=== PATIENT | female | born 1995 | race Caucasian/White ===

== ENCOUNTER 2024-08-15 16:38 | Outpatient (CLI) | payer OTHER, SELFPAY ==
[2024-08-15 17:06] VITALS: BP 117/67; PULSE 88; RESP 18; TEMP 36.4
[2024-08-15 17:08] VITALS: O2SAT 98
[2024-08-15 17:09] LABS: Mucous, Urine 0 SEEN /hpf (<or=2+); Red Blood Cells-Urine 0 SEEN /hpf (0-5)
[2024-08-15 17:13] VITALS: BMI 38.9
[2024-08-15 17:30] LABS: Color, Urine Yellow (Yellow); Glucose, Dipstick Normal (Normal); Ketone-Dipstick 15 mg/dl (Negative); Leukocyte Esterase-Dipstick 25 /ul (Negative); Nitrite-Dipstick Positive (Negative); Occult Blood-Urine Negative /ul (Negative); Protein-Dipstick 15 mg/dl (Negative); Urine Bilirubin Dipstick Negative (Negative); Urine Clarity Sl. Cloudy (Clear); Urine Urobilinogen Normal (Normal)
[2024-08-15 17:45] LABS: Hematocrit 35.6 % (37-47); Hemoglobin 11.8 g/dL (12.0-15.0); Mean Corp Hgb Conc 33.1 g/dL (32-36); Mean Corpuscular Hgb 27.9 pg (27.0-32.0); Mean Corpuscular Volume 84.2 fL (81-99); Mean Platelet Vol. 11.6 fl (6.2-12.0); Platelet Count 197 K/mm3 (150-450); RBC Distribution Width CV 13.7 % (11.6-14.6); RBC Distribution Width SD 42.2 fl (35.1-43.9); Red Blood Count 4.23 M/mm3 (4.2-5.4); White Blood Count 11.8 K/mm3 (4.4-11.0)
[2024-08-15 17:56] LABS: AST(SGOT) 18 U/L (<=31); Alanine Aminotransfer ALT/SGPT 17 U/L (<=34); Creatinine, Serum 0.66 mg/dL (0.70-1.20); EST Glomerular Filtration Rate 122 (>60); Estimated Creatinine Clearance 152.24 ml/min (50-250)
[2024-08-15 18:02] LABS: Squamous Epithelial Cells - UA 10-25 SEEN /hpf (5-10); White Blood Cells 5-10 SEEN /hpf (0-5)
[2024-08-15 18:03] LABS: Bacteria 4+ /hpf (None Seen)
[2024-08-15 18:07] LABS: Protein, Urine (Random) 16.8 mg/dL (0.0-12.0); Protein:Creat Ratio 121 mg/g CRE (0-200)
[2024-08-15] MEDS: Nitrofurantoin Macrocrystals 100 MG Capsule PO (18:21)
[2024-08-15 18:31] LABS: Uric Acid 3.7 mg/dL (2.6-6.0)
--- NOTE | 2024-08-19 09:24 | OB.TRI.HP_ITS ---
HPI - General General Date of Admission: 08/15/24 Date of Service: 08/15/24 Chief Complaint: headache in HPI Narrative LAYO PADRON, is a 29 F who presents c/o headace at 29 3/7 weeks Maternal Data Information Final JUDD: 10/28/24 Gestational age: 29 3/7 PFSH PFSH Home Medications ?Medication ?Instructions ?Recorded ?Last Taken ?Type PNV 153-FA 400 mcg-om3 35 mg-dha 1 tab PO DAILY pregna ncy 08/15/24 08/14/24 History 25 mg-epa 5 mg-fish oil chew tablet ( Gummies) pantoprazole 20 mg tablet,delayed 20 mg PO DAILY 08/1508/15/24 History release (Protonix) Allergy/AdvReac Type Severity Reaction Status Date / Time Penicillins Allergy Mild Rash Verified 08/15/24 17:10 NST FHR Rate Baby A Baseline: 130 Variability:: Moderate Accelerations:: 15 x 15 Decelerations:: None NST Reactive:: Yes Uterine Activity:: no regular ctxs Assessment & Plan (1) High risk multigravida in third trimester: PLAN: no evidence of preeclampsia. Return prn or f/u in office as scheduled. (2) 29 weeks gestation of : (3) Headache in : QUALIFIERS: Trimester: third trimester Qualified Code(s): O26.893 - Other specified related conditions, third trimester; R51.9 - Headache, unspecified
== END 2024-08-15 18:25 | disposition home or self-care (01) ==
LOC: WPOUT 16:45 → WP 16:46
PROVIDERS: Referring Provider Advanced Practice Midwife; Visit Provider Advanced Practice Midwife
DX: O99.891 Other specified diseases and conditions complicating pregnancy (principal); R51.9 Headache, unspecified; O09.93 Supervision of high risk pregnancy, unspecified, third trimester; Z3A.29 29 weeks gestation of pregnancy; Z88.0 Allergy status to penicillin
CPT/HCPCS: 36415; 59025; 59050; 81001; 82565; 82570; 84156; 84450; 84460; 84550; 85027; 99221; G0378

== ENCOUNTER 2024-10-27 07:29 | Inpatient (IN) | payer OTHER, SELFPAY ==
[2024-10-27] VITALS (47 sets, daily range): BP systolic 105–152; BP diastolic 53–78; PULSE 71–106; RESP 16–20; TEMP 35.7–37.4; O2SAT 93–99; BMI 42.0
--- OUTSIDE RECORDS SUMMARY | 2024-10-27 07:20 | XMS RPT_ITS | CCD ---
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 Smith on 08-15-2024 Urine RBC 0 SEEN /hpf 0-5 [facility] Mucus LM Ql (Urine sed)Order ed By: Vandana Smith on 08-15-2024 Mucus Ql (Urine sed) 0 SEEN /hpf [facility] Nitrite Test strip Ql (U)Ord ered By: Vandana Smith on 08-15-2024 Nitrite Ql (U) Positive High Negative [facility] Platelet countOrdered By: Antonio Smith on 08-15-2024 Platelets (Bld) [#/Vol] 197 10*3/uL 150-450 [facility] Protein Test strip Ql (U)Ord ered By: Vandana Smith on 08-15-2024 Protein Ql (U) 15 mg/dl High Negative [facility] Protein+Creatinine Ratio,Uri neon 08-15-2024 PROT:CRE RATIO 121 mg/g CRE Normal 0-200 [facility] Comment on above: Performed By: #### L 501.4405, L501.4100, L100.0500, L501.0900, L501.1105, L501.1400 #### [facility] [address] [place], [address] Protein (U) [Mass/Vol] 16.8 mg/dL High 0.0-12.0 [facility] Comment on above: Performed By: #### L 501.4405, L501.4100, L100.0500, L501.0900, L501.1105, L501.1400 #### [facility] [address] [place], [address] Protein/Creatinine (U) [Mass ratio]Ordered By: Vandana Smith on 08-15-2024 Urine Protein/Creatinine Ratio 121 mg/g CRE 0-200 [facility] RBC Auto (Bld) [#/Vol]Ordere d By: Vandana Smith on 08-15-2024 RBC (Bld) [#/Vol] 4.23 10*6/uL 4.2-5.4 [facility] Serum Creatinine AND GFRon 0 08-15-2024 Creatinine [Mass/Vol] 0.66 mg/dL Low 0.70-1.20 [facility] Comment on above: Performed By: #### L 501.4405, L501.4100, L100.0500, L501.0900, L501.1105, L501.1400 #### [facility] [address] [place], [address] ECRCL 152.24 ml/min Normal 50-250 [facility] Comment on above: Performed By: #### L 501.4405, L501.4100, L100.0500, L501.0900, L501.1105, L501.1400 #### [facility] [address] [place], [address] GFR/1.73 sq M.predicted among non-blacks MDRD (S/P/Bld) [Vol rate/Area] 122 mL/min/{1.73_m2} Normal >60 [facility] Comment on above: Result Comment: mL/m in/1.73m2 CKD-EPI Creatinine Equation (2020) Performed By: #### L 501.4405, L501.4100, L100.0500, L501.0900, L501.1105, L501.1400 #### [facility] [address] [place], [address] Serum creatinine measurement (mass/volume)Ordered By: Vandana Smith on 08-15-2024 Creatinine [Mass/Vol] 0.66 mg/dL Low 0.70-1.20 [facility] Serum or plasma alanine peralta otransferase (ALT) measurementOrdered By: Vandana Smith on 08-15-2024 ALT [Catalytic activity/Vol] 17 U/L <35 [facility] Serum or plasma uric acid me asurement (mass/volume)Ordered By: Vandana Smith on 08-15-2024 Urate [Mass/Vol] 3.7 mg/dL 2.6-6.0 [facility] Comment on above: The drugs N-Acetylcy steine and Metamizole may falsely depress this assay. Uric Acidon 08-15-2024 URIC 3.7 mg/dL Normal 2.6-6.0 [facility] Comment on above: Result Comment: The drugs N-Acetylcysteine and Metamizole may falsely depress this assay. Performed By: #### L 501.4405, L501.4100, L100.0500, L501.0900, L501.1105, L501.1400 #### [facility] [address] [place], [address] Urinalysis, Completeon 08-15 BACTERIA 4+ /hpf Normal None Seen [facility] Comment on above: Order Comment: CLEAN CATCH Performed By: #### L 400.0001 #### [facility] [address] [place], [address] EPI,SQUAMOUS 10-25 SEEN Normal 5-10 [facility] Comment on above: Order Comment: CLEAN CATCH Performed By: #### L 400.0001 #### [facility] [address] [place], [address] WBC 5-10 SEEN Normal 0-5 [facility] Comment on above: Order Comment: CLEAN CATCH Performed By: #### L 400.0001 #### [facility] [address] [place], [address] Mucus Ql (Urine sed) 0 SEEN Normal [facility] Comment on above: Order Comment: CLEAN CATCH Performed By: #### L 400.0001 #### [facility] [address] [place], [address] RBC 0 SEEN Normal 0-5 [facility] Comment on above: Order Comment: CLEAN CATCH Performed By: #### L 400.0001 #### [facility] [address] [facility] [address] Urine blood detectionOrdered By: Vandana Smith on 08-15-2024 Urine Occult Blood Negative Negative [facility] Urine clarityOrdered By: Latrice Smith on 08-15-2024 Clarity (U) Sl. Cloudy Clear [facility] Urine color determinationOrd ered By: Vandana Smith on 08-15-2024 Color (U) Yellow Yellow [facility] Urine leukocyte esterase det ection by dipstickOrdered By: Vandana Smith on 08-15-2024 Leukocyte esterase Test strip Ql (U) 25 /ul High Negative [facility] Urine pHOrdered By: Vandana Smith on 08-15-2024 pH (U) 6.0 [pH] 5.0 - 8.0 [facility] Urine protein measurement (m ass/volume)Ordered By: Vandana Smith on 08-15-2024 Protein (U) [Mass/Vol] 16.8 mg/dL High 0.0-12.0 [facility] Urine sediment bacteria coun t by microscopy (number/high power field)Ordered By: Vandana Smith on 08-15-2024 Bacteria LM.HPF (Urine sed) [#/Area] 4 /[HPF] None Seen [facility] Urine specific gravity measu rementOrdered By: Vandana Smith on 08-15-2024 Specific gravity (U) [Rel density] 1.020 1.002-1.030 [facility] Urobilinogen Ql (U)Ordered B y: Vandana Smith on 08-15-2024 Urine Urobilinogen Normal mg/dl Normal [facility] White blood cell (WBC) count Ordered By: Vandana Smith on 08-15-2024 WBC (Bld) [#/Vol] 11.8 10*3/uL High 4.4-11.0 [facility] White blood cell countOrdere d By: Vandana Smith on 08-15-2024 Urine WBC 5-10 SEEN /hpf 0-5 [facility] CBC W Auto Differential pane l (Bld)on 08-10-2024 Basophils (Bld) [#/Vol] 10*3/uL Normal <0.11 [facility] Comment on above: Order Comment: Speci men Type: BLOOD SPECIMEN Ordering Facility: [facility] Address: [address] [place] [address] Performed By: #### 5 7021-8 #### [facility] CLIA [id number] [address] [place] [address] [place] Basophils/100 WBC (Bld) 0.2 % Normal [facility] Comment on above: Order Comment: Speci men Type: BLOOD SPECIMEN Ordering Facility: [facility] Address: [address] [place] [address] Performed By: #### 5 7021-8 #### [facility] CLIA [id number] [address] [place] [address] [place] Differential cell count method Nom (Bld) Auto Normal [facility] Comment on above: Order Comment: Speci men Type: BLOOD SPECIMEN Ordering Facility: [facility] Address: [address] [place] [address] Performed By: #### 5 7021-8 #### [facility] CLIA [id number] [address] [place] [address] [place] Eosinophils (Bld) [#/Vol] 0.13 10*3/uL Normal <0.46 [facility] Comment on above: Order Comment: Speci men Type: BLOOD SPECIMEN Ordering Facility: [facility] Address: [address] [place] [address] Performed By: #### 5 7021-8 #### [facility] CLIA [id number] [address] [place] [address] [place] Eosinophils/100 WBC (Bld) 1.3 % Normal [facility] Comment on above: Order Comment: Speci men Type: BLOOD SPECIMEN Ordering Facility: [facility] Address: [address] [place] [address] Performed By: #### 5 7021-8 #### [facility] CLIA [id number] [address] [place] [address] [place] Erythrocyte distribution width (RBC) [Ratio] 14.1 % Normal 11.5-15.0 [facility] Comment on above: Order Comment: Speci men Type: BLOOD SPECIMEN Ordering Facility: [facility] Address: [address] [place] [address] Performed By: #### 5 7021-8 #### [facility] CLIA [id number] [address] [place] [address] [place] Hematocrit (Bld) [Volume fraction] 36.3 % Normal 36.0-46.0 [facility] Comment on above: Order Comment: Speci men Type: BLOOD SPECIMEN Ordering Facility: [facility] Address: [address] [place] [address] Performed By: #### 5 7021-8 #### [facility] CLIA [id number] [address] [place] [address] [place] Hemoglobin (Bld) [Mass/Vol] 11.8 g/dL Normal 11.5-15.5 [facility] Comment on above: Order Comment: Speci men Type: BLOOD SPECIMEN Ordering Facility: [facility] Address: [address] [place] [address] Performed By: #### 5 7021-8 #### [facility] CLIA [id number] [address] [place] [address] [place] Immature granulocytes (Bld) [#/Vol] 0.05 10*3/uL Normal <0.10 [facility] Comment on above: Order Comment: Speci men Type: BLOOD SPECIMEN Ordering Facility: [facility] Address: [address] [place] [address] Performed By: #### 5 7021-8 #### [facility] CLIA [id number] [address] [place] [address] [place] Immature granulocytes/100 WBC (Bld) 0.5 % Normal [facility] Comment on above: Order Comment: Speci men Type: BLOOD SPECIMEN Ordering Facility: [facility] Address: [address] [place] [address] Performed By: #### 5 7021-8 #### [facility] CLIA [id number] [address] [place] [address] [place] Lymphocytes (Bld) [#/Vol] 1.48 10*3/uL Normal 1.00-4.00 [facility] Comment on above: Order Comment: Speci men Type: BLOOD SPECIMEN Ordering Facility: [facility] Address: [address] [place] [address] Performed By: #### 5 7021-8 #### [facility] CLIA [id number] [address] [place] [address] [place] Lymphocytes/100 WBC (Bld) 14.5 % Normal [facility] Comment on above: Order Comment: Speci men Type: BLOOD SPECIMEN Ordering Facility: [facility] Address: [address] [place] [address] Performed By: #### 5 7021-8 #### [facility] CLIA [id number] [address] [place] [address] [place] MCH (RBC) [Entitic mass] 27.7 pg Normal 26.0-34.0 [facility] Comment on above: Order Comment: Speci men Type: BLOOD SPECIMEN Ordering Facility: [facility] Address: [address] [place] [address] Performed By: #### 5 7021-8 #### [facility] CLIA [id number] [address] [place] [address] [place] MCHC (RBC) [Mass/Vol] 32.5 g/dL Normal 30.5-36.0 [facility] Comment on above: Order Comment: Speci men Type: BLOOD SPECIMEN Ordering Facility: [facility] Address: [address] [place] [address] Performed By: #### 5 7021-8 #### [facility] CLIA [id number] [address] [place] [address] [place] MCV (RBC) [Entitic vol] 85.2 fL Normal 80.0-100.0 [facility] Comment on above: Order Comment: Speci men Type: BLOOD SPECIMEN Ordering Facility: [facility] Address: [address] [place] [address] Performed By: #### 5 7021-8 #### [facility] CLIA [id number] [address] [place] [address] [place] Monocytes (Bld) [#/Vol] 0.51 10*3/uL Normal <0.87 [facility] Comment on above: Order Comment: Speci men Type: BLOOD SPECIMEN Ordering Facility: [facility] Address: [address] [place] [address] Performed By: #### 5 7021-8 #### [facility] CLIA [id number] [address] [place] [address] [place] Monocytes/100 WBC (Bld) 5.0 % Normal [facility] Comment on above: Order Comment: Speci men Type: BLOOD SPECIMEN Ordering Facility: [facility] Address: [address] [place] [address] Performed By: #### 5 7021-8 #### [facility] CLIA [id number] [address] [place] [address] [place] Neutrophils (Bld) [#/Vol] 8.00 10*3/uL High 1.45-7.50 [facility] Comment on above: Order Comment: Speci men Type: BLOOD SPECIMEN Ordering Facility: [facility] Address: [address] [place] [address] Performed By: #### 5 7021-8 #### [facility] CLIA [id number] [address] [place] [address] [place] Neutrophils/100 WBC (Bld) 78.5 % Normal [facility] Comment on above: Order Comment: Speci men Type: BLOOD SPECIMEN Ordering Facility: [facility] Address: [address] [place] [address] Performed By: #### 5 7021-8 #### [facility] CLIA [id number] [address] [place] [address] [place] Nucleated RBC (Bld) [#/Vol] 10*3/uL Normal <0.01 [facility] Comment on above: Order Comment: Speci men Type: BLOOD SPECIMEN Ordering Facility: [facility] Address: [address] [place] [address] Performed By: #### 5 7021-8 #### [facility] [id number] [address] [place] [address] [place] Nucleated RBC/100 WBC (Bld) [Ratio] 0.0 /100 WBC Normal [facility] Comment on above: Order Comment: Speci men Type: BLOOD SPECIMEN Ordering Facility: [facility] Address: [address] [place] [address] Performed By: #### 5 7021-8 #### [facility] [id number] [address] [place] [address] [place] Platelet mean volume (Bld) [Entitic vol] 11.2 fL Normal 9.0-12.7 [facility] Comment on above: Order Comment: Speci men Type: BLOOD SPECIMEN Ordering Facility: [facility] Address: [address] [place] [address] Performed By: #### 5 7021-8 #### [facility] [id number] [address] [place] [address] [place] Platelets (Bld) [#/Vol] 188 10*3/uL Normal 150-400 [facility] Comment on above: Order Comment: Speci men Type: BLOOD SPECIMEN Ordering Facility: [facility] Address: [address] [place] [address] Performed By: #### 5 7021-8 #### [facility] CLIA [id number] [address] [place] [address] [place] RBC (Bld) [#/Vol] 4.26 10*6/uL Normal 3.90-5.20 [facility] Comment on above: Order Comment: Speci men Type: BLOOD SPECIMEN Ordering Facility: [facility] Address: [address] [place] [address] Performed By: #### 5 7021-8 #### [facility] [id number] [address] [place] [address] [place] WBC (Bld) [#/Vol] 10.19 10*3/uL Normal 3.70-11.00 [facility] Comment on above: Order Comment: Speci men Type: BLOOD SPECIMEN Ordering Facility: [facility] Address: [address] [place] [address] Performed By: #### 5 7021-8 #### [facility] [id number] [address] [place] [address] [place] GESTATIONAL GLUCOSE SCREEN, 1-HOUR, 50 GRAM, NON-FASTINGon 08-10-2024 Glucose [Mass/Vol] 116 mg/dL Normal 74-134 [facility] Comment on above: Order Comment: Speci men Type: BLOOD SPECIMEN Ordering Facility: [facility] Address: [address] [place] [address] Result Comment: [facility] [employer] of Obstetricians and Gynecologists (Juan Manuel/Yaya) guidelines state a gestational diabetes mellitus positive screen is made, in women not previously diagnosed with overt diabetes, when the 1 hr plasma glucose level is equal to or above 140 mg/dL. The [facility] [employer] [facility] [place] recommends a 135 mg/dL cutoff. Performed By: #### G LTGST #### [facility] [id number] [address] [place] [address] [place] Reagin and Treponema pallidu m IgG and IgM [Interp]on 08-10-2024 T. pallidum IgG+IgM IA Ql (S) Non-Reactive Normal Nonreactive [facility] Comment on above: Order Comment: Sakshi ann Type: BLOOD SPECIMEN Ordering Facility: [facility] Address: [address] [place] [address] Performed By: #### 5 7021-8 #### [facility] CLIA [id number] [address] [place] [address] [place] Reagin+T pallidum IgG+IgM Se rPl-Impon 08-10-2024 Reagin and Treponema pallidum IgG and IgM [Interp] Cannot exclude recent Treponemal infection if specimen collected within 7-10 days after appearance of suspect lesions or 2-3 weeks after an exposure. Clinical correlation is required. Normal [facility] Comment on above: Order Comment: Sakshi ann Type: BLOOD SPECIMEN Ordering Facility: [facility] Address: [address] [place] [address] Performed By: #### 5 7021-8 #### [facility] [id number] [address] [place] [address] [place] Examination level ultrasound on 07-15-2024 [facility] Radiology Study observation (narrative) [facility] Albaro 06-15-2024 REYNALDO Telephone (MANN) -------- REENA JAMA ([id number]) 1995 F Date Time Provider Department 06/15/24 REENA TELLES During your visit today, we recorded the following information about you: Jenna Castellanos RN 06/15/2024 11:17 AM Signed Reviewed. Please add to record. Needs follow up in anatomy in 2-4 weeks. Reena Telles, CHRISTOPHER.Jenna Gaxiola RN 06/15/2024 11:17 AM Signed Left message to call office. Please file pended order. BASSAM Smith Trisha, RN 06/15/2024 11:26 AM Signed Patient notified and scheduled. Anabell Dunham RN Allergies As of Date: 06/15/2024 Noted Allergy Reaction PENICILLIN 03/15/2024 4 - Hives Date Reviewed: 06/14/2024 Reviewed by: Rachel Mcintosh MD - Fully Assessed Reason for Visit: Follow Up [171] Primary Visit Diagnosis:Encounter for supervision of high risk in second trimester, antepartum [O09.92] Order(s):OBSTETRIC ULTRASOUND [facility] [[id number]] Order #: [id number]: 1 FUTURE Prescriptions as of 06/15/2024 - pantoprazole DR (PROTONIX) 40 mg tablet Take 1 tablet by mouth once daily. - Magnesium Oxide 420 mg tab Take 1 tablet by mouth once daily. - aspirin, enteric coated (ECOTRIN LOW STRENGTH) 81 mg EC tablet Take 1 tablet by mouth once daily. - vit/iron fum/folic ac ( TABLET ORAL) Take 1 tablet by mouth once daily. Problem List As Of Date 06/15/2024 Noted Resolved Penicillin allergy [Z88.0] 03/21/2024 Obesity affecting in first trimester *03/21/2024 Constipation during in first trimeste*03/21/2024 04/19/2024 Heartburn during in first trimester [*03/21/2024 Nausea and vomiting during [O21.9] 03/21/2024 Encounter Status:Closed by ANABELL DUNHAM on 06/15/24 Normal [facility] Examination level ultrasound on 06-14-2024 Indication Detailed anatomic survey Maternal obesity, BMI >30 Impression REMOTE READ The patient is referred for a detailed anatomic survey. - Single, live, intrauterine . - biometry is consistent with the established gestational age. - No malformations were visualized on a detailed anatomic survey, although some anatomical structures were suboptimally seen as detailed below. - The amniotic fluid volume is normal amount. - The placenta is anterior, fundal. - The Transabdominal cervical length measures 34.3 mm with no evidence of funneling or other dynamic changes. - Not all structural malformations can be detected by ultrasound examination. Recommendations Return in 2-4 weeks to complete anatomic survey Maternal Assessment Height 168 cm Height (ft) 5 ft Height (in) 6 in Physical Exam Initial weight (lb) 212 lb Initial BMI 34.22 kg/m Maternal assessment other: 2 Para 1 Method Transabdominal ultrasound examination. View: Suboptimal view: limited by position Wade . Number of fetuses: 1 Dating LMP on: 01/22/2024 GA by LMP 20 w + 4 d JUDD by LMP: 10/28/2024 GA by prior assessment 20 w + 4 d JUDD by prior assessment: 10/28/2024 Ultrasound examination on: 06/14/2024 GA by U/S based upon: AC, BPD, Femur, HC GA by U/S 20 w + 4 d JUDD by U/S: 10/28/2024 Assigned: based on the LMP, selected on 03/21/2024 Assigned GA 20 w + 4 d Assigned JUDD: 10/28/2024 General Evaluation Cardiac activity present. FHR 159 bpm. movements: present. Presentation: breech Placenta: Placental site: anterior, fundal Umbilical cord: Cord vessels: 3 vessel cord Amniotic fluid: Amount of AF: normal amount. MVP 4.7 cm Growth Overview Exam date GA BPD (mm) HC (mm) AC (mm) FL (mm) HL (mm) EFW (g) 06/14/2024 20w 4d 47.5 40% 182.2 51% 161.9 67% 31.5 34% 31.9 53% 364 45% Biometry Standard BPD 47.5 mm 20w 3d 40% Hadlock OFD 65.7 mm 20w 5d 82% Nicolaides HC 182.2 mm 20w 4d 51% Jovany Cerebellum tr 19.9 mm 19w 1d 20% Hill Nuchal fold 4.3 mm AC 161.9 mm 21w 2d 67% Hadlock Femur 31.5 mm 20w 0d 34% Jovany Humerus 31.9 mm 20w 5d 53% Jovany EFW 364 g 20w 3d 45% Hadlock EFW (lb) 0 lb EFW (oz) 13 oz EFW by: Hadlock (HC-AC-FL) Extended Hoist Operator 5.4 mm CM 4.0 mm 15% Nicolaides Extremities / Bony Struc FL / HC 0.17 2% Hadlock Other Structures FHR 159 bpm Anatomy Cranium: normal Lateral ventricles: normal Choroid plexus: normal Midline falx: normal Cavum septi pellucidi: normal Cerebellum: normal Cisterna magna: normal Head / Neck Vermis: normal Neck: normal Nuchal fold: normal Lips: normal Profile: normal Nose: normal Face Maxilla: normal Mandible: normal Orbits: normal Lens: normal 4-chamber view: normal RVOT view: normal LVOT view: normal 3-vessel view: normal [id number] view: normal Heart / Thorax Situs: situs solitus (normal) Aortic arch view: normal SVC: normal IVC: normal Cardiac axis: normal Rt lung: normal Lt lung: normal Diaphragm: normal Cord insertion: normal Stomach: normal Kidneys: normal Bladder: normal Genitals: normal Abdomen Abdom. wall: normal Cervical spine: normal Thoracic spine: suboptimally visualized Lumbar spine: suboptimally visualized Sacral spine: suboptimally visualized Arms: normal Legs: normal Rt upper arm: normal Rt forearm: normal Rt hand: normal Rt fingers: normal Lt upper arm: normal Lt forearm: normal Lt hand: normal Lt fingers: normal Rt upper leg: normal Rt lower leg: normal Rt foot: normal Lt upper leg: normal Lt lower leg: normal Lt foot: normal sex: male Wants to know sex: yes Maternal Structures Uterus / Cervix Uterus: Visualized Cervix: Visualized Approach: Transabdominal Cervical length 34.3 mm Other: Patient declined transvaginal ultrasound for cervical length. Ovaries / Tubes / Adnexa Rt ovary: Visualized Lt ovary: Visualized Performed By: Jenna Ferrell RDMS, RVT Read By: Silvia Mcgee M.D. MATERNAL MEDICINE [facility] Radiology Study observation (narrative) [facility] CBC W Auto Differential pane l (Bld)on 04-19-2024 Basophils (Bld) [#/Vol] 0.04 10*3/uL Normal <0.11 [facility] Comment on above: Order Comment: Speci men Type: BLOOD SPECIMEN Ordering Facility: [facility] Address: [address] [place] [address] Performed By: #### 5 7021-8 #### [facility] CLIA [id number] [address] [place] [address] [place] Basophils/100 WBC (Bld) 0.5 % Normal [facility] Comment on above: Order Comment: Speci men Type: BLOOD SPECIMEN Ordering Facility: [facility] Address: [address] [place] [address] Performed By: #### 5 7021-8 #### [facility] CLIA [id number] [address] [place] [address] [place] Differential cell count method Nom (Bld) Auto Normal [facility] Comment on above: Order Comment: Speci men Type: BLOOD SPECIMEN Ordering Facility: [facility] Address: [address] [place] [address] Performed By: #### 5 7021-8 #### [facility] CLIA [id number] [address] [place] [address] [place] Eosinophils (Bld) [#/Vol] 0.15 10*3/uL Normal <0.46 [facility] Comment on above: Order Comment: Speci men Type: BLOOD SPECIMEN Ordering Facility: [facility] Address: [address] [place] [address] Performed By: #### 5 7021-8 #### [facility] CLIA [id number] [address] [place] [address] [place] Eosinophils/100 WBC (Bld) 1.9 % Normal [facility] Comment on above: Order Comment: Speci men Type: BLOOD SPECIMEN Ordering Facility: [facility] Address: [address] [place] [address] Performed By: #### 5 7021-8 #### [facility] CLIA [id number] [address] [place] [address] [place] Erythrocyte distribution width (RBC) [Ratio] 13.2 % Normal 11.5-15.0 [facility] Comment on above: Order Comment: Speci men Type: BLOOD SPECIMEN Ordering Facility: [facility] Address: [address] [place] [address] Performed By: #### 5 7021-8 #### [facility] CLIA [id number] [address] [place] [address] [place] Hematocrit (Bld) [Volume fraction] 39.9 % Normal 36.0-46.0 [facility] Comment on above: Order Comment: Speci men Type: BLOOD SPECIMEN Ordering Facility: [facility] Address: [address] [place] [address] Performed By: #### 5 7021-8 #### [facility] CLIA [id number] [address] [place] [address] [place] Hemoglobin (Bld) [Mass/Vol] 12.9 g/dL Normal 11.5-15.5 [facility] Comment on above: Order Comment: Speci men Type: BLOOD SPECIMEN Ordering Facility: [facility] Address: [address] [place] [address] Performed By: #### 5 7021-8 #### [facility] CLIA [id number] [address] [place] [address] [place] Immature granulocytes (Bld) [#/Vol] 0.03 10*3/uL Normal <0.10 [facility] Comment on above: Order Comment: Speci men Type: BLOOD SPECIMEN Ordering Facility: [facility] Address: [address] [place] [address] Performed By: #### 5 7021-8 #### [facility] CLIA [id number] [address] [place] [address] [place] Immature granulocytes/100 WBC (Bld) 0.4 % Normal [facility] Comment on above: Order Comment: Speci men Type: BLOOD SPECIMEN Ordering Facility: [facility] Address: [address] [place] [address] Performed By: #### 5 7021-8 #### [facility] CLIA [id number] [address] [place] [address] [place] Lymphocytes (Bld) [#/Vol] 2.08 10*3/uL Normal 1.00-4.00 [facility] Comment on above: Order Comment: Speci men Type: BLOOD SPECIMEN Ordering Facility: [facility] Address: [address] [place] [address] Performed By: #### 5 7021-8 #### [facility] CLIA [id number] [address] [place] [address] [place] Lymphocytes/100 WBC (Bld) 26.9 % Normal [facility] Comment on above: Order Comment: Speci men Type: BLOOD SPECIMEN Ordering Facility: [facility] Address: [address] [place] [address] Performed By: #### 5 7021-8 #### [facility] CLIA [id number] [address] [place] [address] [place] MCH (RBC) [Entitic mass] 27.6 pg Normal 26.0-34.0 [facility] Comment on above: Order Comment: Speci men Type: BLOOD SPECIMEN Ordering Facility: [facility] Address: [address] [place] [address] Performed By: #### 5 7021-8 #### [facility] CLIA [id number] [address] [place] [address] [place] MCHC (RBC) [Mass/Vol] 32.3 g/dL Normal 30.5-36.0 [facility] Comment on above: Order Comment: Speci men Type: BLOOD SPECIMEN Ordering Facility: [facility] Address: [address] [place] [address] Performed By: #### 5 7021-8 #### [facility] CLIA [id number] [address] [place] [address] [place] MCV (RBC) [Entitic vol] 85.4 fL Normal 80.0-100.0 [facility] Comment on above: Order Comment: Speci men Type: BLOOD SPECIMEN Ordering Facility: [facility] Address: [address] [place] [address] Performed By: #### 5 7021-8 #### [facility] CLIA [id number] [address] [place] [address] [place] Monocytes (Bld) [#/Vol] 0.48 10*3/uL Normal <0.87 [facility] Comment on above: Order Comment: Speci men Type: BLOOD SPECIMEN Ordering Facility: [facility] Address: [address] [place] [address] Performed By: #### 5 7021-8 #### [facility] CLIA [id number] [address] [place] [address] [place] Monocytes/100 WBC (Bld) 6.2 % Normal [facility] Comment on above: Order Comment: Speci men Type: BLOOD SPECIMEN Ordering Facility: [facility] Address: [address] [place] [address] Performed By: #### 5 7021-8 #### [facility] CLIA [id number] [address] [place] [address] [place] Neutrophils (Bld) [#/Vol] 4.94 10*3/uL Normal 1.45-7.50 [facility] Comment on above: Order Comment: Speci men Type: BLOOD SPECIMEN Ordering Facility: [facility] Address: [address] [place] [address] Performed By: #### 5 7021-8 #### [facility] CLIA [id number] [address] [place] [address] [place] Neutrophils/100 WBC (Bld) 64.1 % Normal [facility] Comment on above: Order Comment: Speci men Type: BLOOD SPECIMEN Ordering Facility: [facility] Address: [address] [place] [address] Performed By: #### 5 7021-8 #### [facility] CLIA [id number] [address] [place] [address] [place] Nucleated RBC (Bld) [#/Vol] 10*3/uL Normal <0.01 [facility] Comment on above: Order Comment: Speci men Type: BLOOD SPECIMEN Ordering Facility: [facility] Address: [facility] [place] [address] Performed By: #### 5 7021-8 #### [facility] CLIA [id number] [address] [place] [address] [place] Nucleated RBC/100 WBC (Bld) [Ratio] 0.0 /100 WBC Normal [facility] Comment on above: Order Comment: Speci men Type: BLOOD SPECIMEN Ordering Facility: [facility] Address: [address] [place] [address] Performed By: #### 5 7021-8 #### [facility] CLIA [id number] [address] [place] [address] [place] Platelet mean volume (Bld) [Entitic vol] 10.5 fL Normal 9.0-12.7 [facility] Comment on above: Order Comment: Speci men Type: BLOOD SPECIMEN Ordering Facility: [facility] Address: [address] [place] [address] Performed By: #### 5 7021-8 #### [facility] CLIA [id number] [address] [place] [address] [place] Platelets (Bld) [#/Vol] 195 10*3/uL Normal 150-400 [facility] Comment on above: Order Comment: Speci men Type: BLOOD SPECIMEN Ordering Facility: [facility] Address: [facility] [place] [address] Performed By: #### 5 7021-8 #### [facility] CLIA [id number] [address] [place] [address] [place] RBC (Bld) [#/Vol] 4.67 10*6/uL Normal 3.90-5.20 [facility] Comment on above: Order Comment: Speci men Type: BLOOD SPECIMEN Ordering Facility: [facility] Address: [address] [place] [address] Performed By: #### 5 7021-8 #### [facility] CLIA [id number] [address] [place] [address] [place] WBC (Bld) [#/Vol] 7.72 10*3/uL Normal 3.70-11.00 [facility] Comment on above: Order Comment: Speci men Type: BLOOD SPECIMEN Ordering Facility: [facility] Address: [address] [place] [address] Performed By: #### 5 7021-8 #### [facility] [id number] [address] [place] [address] [place] HBV surface Ag Ser Qlon 04-03 HBV surface Ag Ql (S) Negative Normal Negative [facility] Comment on above: Order Comment: Speci men Type: BLOOD SPECIMEN Ordering Facility: [facility] Address: [address] [place] [address] Performed By: #### G LTGST #### [facility] [id number] [address] [place] [address] [place] HCV Ab Ser Qlon 04-19-2024 HCV Ab Ql (S) Negative Normal Negative [facility] Comment on above: Order Comment: Speci men Type: BLOOD SPECIMEN Ordering Facility: [facility] Address: [address] [place] [address] Result Comment: The result suggests no evidence of active infection with Hepatitis C virus. Should recent infection be suspected, repeat testing may be considered 4-6 weeks after this draw. Performed By: #### 5 7021-8 #### [facility] CLIA [id number] [address] [place] [address] [place] HIV 1+2 Ab IA Qlon 4 HIV 1 and 2 Ab IA.rapid Nom (S/P/Bld) Normal [facility] Comment on above: Order Comment: Speci men Type: BLOOD SPECIMEN Ordering Facility: [facility] Address: [address] [place] [address] Result Comment: Test not indicated. Performed By: #### G LTGST #### [facility] CLIA [id number] [address] [place] [address] [place] HIV 1+2 Ab+HIV1 p24 Ag IA Ql Non-Reactive Normal Nonreactive [facility] Comment on above: Order Comment: Speci men Type: BLOOD SPECIMEN Ordering Facility: [facility] Address: [address] [place] [address] Performed By: #### G LTGST #### [facility] CLIA [id number] [address] [place] [address] [place] HIV immunoassay testing algorithm interpretation (S/P/Bld) [Interp] Normal [facility] Comment on above: Order Comment: Speci men Type: BLOOD SPECIMEN Ordering Facility: [facility] Address: [address] [place] [address] Result Comment: No e vidence of HIV-1 or HIV-2 infection. Should recent infection be suspected, repeat testing may be considered 2-3 weeks after this draw. [place] Rev. Code 3701.243(E): This information has been disclosed to you from confidential records protected from disclosure by state law. ???You shall make no further disclosure of this information without the specific, written, and informed release of the individual to whom it pertains or as otherwise permitted by state law. A general authorization for the release of medical or other information is not sufficient for the purpose of the release of HIV test results or diagnoses. Performed By: #### G LTGST #### [facility] CLIA [id number] [address] [place] [address] [place] HbA1c (Bld)on 04-19-2024 Average glucose Estimated from glycated hemoglobin (Bld) [Mass/Vol] 97 mg/dL Normal [facility] Comment on above: Order Comment: Sakshi ann Type: BLOOD SPECIMEN Ordering Facility: [facility] Address: [address] [place] [address] Result Comment: eAG: (Estimated average glucose) is a calculated value from HgbA1c and is training representative of the average blood glucose level in the last 2-3 month period. Performed By: #### G LTGST #### [facility] CLIA [id number] [address] [place] [address] [place] HbA1c (Bld) [Mass fraction] 5.0 % Normal 4.3-5.6 [facility] Comment on above: Order Comment: Sakshi ann Type: BLOOD SPECIMEN Ordering Facility: [facility] Address: [address] [place] [address] Result Comment: Amer [place] Diabetes Association guidelines indicate that patients with HgbA1c in the range 5.7-6.4% are at increased risk for development of diabetes, and intervention by lifestyle modification may be beneficial. HgbA1c greater or equal to 6.5% is considered diagnostic of diabetes. Performed By: #### G LTGST #### [facility] CLIA [id number] [address] [place] [address] [place] RUBELLA IGG ANTIBODYon 04-19 RUBELLA IGG AB, QUAL Positive Normal Positive [facility] Comment on above: Order Comment: Sakshi ann Type: BLOOD SPECIMEN Ordering Facility: [facility] Address: [address] [place] [address] Result Comment: The result suggests recent or past exposure to Rubella virus or history of Rubella vaccination. Positive result may also be seen due to presence of passively-transferred antibodies. Please correlate with patient's history. Performed By: #### G LTGST #### [facility] CLIA [id number] [address] [place] [address] [place] Reagin and Treponema pallidu m IgG and IgM [Interp]on 04-19-2024 T. pallidum IgG+IgM IA Ql (S) Non-Reactive Normal Nonreactive [facility] Comment on above: Order Comment: Speci men Type: BLOOD SPECIMEN Ordering Facility: [facility] Address: [address] [place] [address] Performed By: #### G LTGST #### [facility] CLIA [id number] [address] [place] [address] [place] Reagin+T pallidum IgG+IgM Se rPl-Impon 04-19-2024 Reagin and Treponema pallidum IgG and IgM [Interp] Cannot exclude recent Treponemal infection if specimen collected within 7-10 days after appearance of suspect lesions or 2-3 weeks after an exposure. Clinical correlation is required. Normal [facility] Comment on above: Order Comment: Speci men Type: BLOOD SPECIMEN Ordering Facility: [facility] Address: [address] [place] [address] Performed By: #### G LTGST #### [facility] CLIA [id number] [address] [place] [address] [place] TYPE + SCREEN PRENATALon ABO O Normal [facility] Comment on above: Order Comment: Speci men Type: BLOOD SPECIMEN Ordering Facility: [facility] Address: [address] [place] [address] Performed By: #### T SPN #### [facility] CLIA [id number] [address] [place] [address] [place] Rh Nom (Bld) Positive Normal [facility] Comment on above: Order Comment: Speci men Type: BLOOD SPECIMEN Ordering Facility: [facility] Address: [address] [place] [address] Performed By: #### T SPN #### [facility] CLIA [id number] [address] [place] [address] [place] TYPE AND SCREEN EXPIRATION 04/22/2024 23:59 Normal [facility] Comment on above: Order Comment: Speci men Type: BLOOD SPECIMEN Ordering Facility: [facility] Address: [address] [place] [address] Performed By: #### T SPN #### [facility] CLIA [id number] [address] [place] [address] [place] Bacteria Ur Culton 4 Bacteria identified Cx Nom (U) ORGANISM ID: 1 >=100,000 CFU/ml Mixed microbiota No further workup. Mixed microbiota can be due to???urine???contaminati on with skin bacteria at time of collection or presence of a long-term urinary catheter. If a new culture is needed, please consider re-education of the patient on proper midstream collection technique or straight catheterization for???urine???collection . Normal [facility] Comment on above: Performed By: #### G LTGST #### [facility] CLIA [id number] [address] [place] [address] [place] C. trachomatis+N. gonorrhoea e DNA SUZETTE+probe Ql (Unsp spec)on 03-21-2024 C. trachomatis rRNA SUZETTE+probe Ql (Unsp spec) Negative Normal Negative for Chlamydia trachomatis by amplificaton [facility] Comment on above: Order Comment: Speci men Type: SWAB Ordering Facility: [facility] Address: [address] [place] [address] Performed By: #### 3 6902-5 #### [facility] CLIA [id number] [address] [place] [address] [place] N. gonorrhoeae rRNA SUZETTE+probe Ql (Unsp spec) Negative Normal Negative for Neisseria gonorrhoeae by amplification [facility] Comment on above: Order Comment: Speci men Type: SWAB Ordering Facility: [facility] Address: [address] [place] [address] Performed By: #### 3 6902-5 #### [facility] CLIA [id number] [address] [place] [address] [place] PAP TESTon 03-21-2024 ADEQUACY Satisfactory for interpretation. Normal [facility] Comment on above: Order Comment: Speci men Type: FLUID SPECIMEN Ordering Facility: [facility] Address: [address] [place] [address] Performed By: #### L [id number] #### [facility] CLIA [id number] [address] [place] [address] [place] [facility] CLIA [id number] [address] [place] [address] [place] CASE REPORT Normal [facility] Comment on above: Order Comment: Speci men Type: FLUID SPECIMEN Ordering Facility: [facility] Address: [address] [place] [address] Result Comment: Gyne cologic Cytology Report Case: [id number] Authorizing Provider: Reena Telles APRN.DEMOLITION SPECIALIST Collected: 03/21/2024 11:37 AM Ordering Location: OB/Gynecology Received: 03/21/2024 01:09 PM First Screen: Darrion Gregory, CT, ASCP Specimen: Pap Test, ThinPrep, Cervix Performed By: #### L [id number] #### [facility] CLIA [id number] [address] [place] [address] [place] [facility] CLIA [id number] [address] [place] [address] [place] CLINICAL HISTORY, CYTOLOGY, CHARTERED WEALTH MANAGER (Indicate Weeks) Normal [facility] Comment on above: Order Comment: Speci men Type: FLUID SPECIMEN Ordering Facility: [facility] Address: [address] [place] [address] Performed By: #### L [id number] #### [facility] CLIA [id number] [address] [place] [address] [place] [facility] CLIA [id number] [address] [place] [address] [place] FINAL PERFORMING LAB Normal [facility] Comment on above: Order Comment: Speci men Type: FLUID SPECIMEN Ordering Facility: [facility] Address: [address] [place], [place] [id number] Result Comment: Tech nical component, silo worker screening performed at [facility], [address] [place] [address] CLIA# [id number] Diagnostic interpretation performed at [facility], [address] [place] [address] CLIA# [id number] Touch Up Edger: Tucker Kat M.D. Performed By: #### L [id number] #### [facility] CLIA [id number] [address] [place] [address] [place] [facility] CLIA [id number] [address] [place] [address] [place] INTERPRETATION, CYTOLOGY, CHARTERED WEALTH MANAGER Normal [facility] Comment on above: Order Comment: Speci men Type: FLUID SPECIMEN Ordering Facility: [facility] Address: [address] [place] [address] Result Comment: Nega tive for intraepithelial lesion or malignancy. Performed By: #### L [id number] #### [facility] CLIA [id number] [address] [place] [address] [place] [facility] CLIA [id number] [address] [place] [address] [place] LMP 01/22/2024 Normal [facility] Comment on above: Order Comment: Speci men Type: FLUID SPECIMEN Ordering Facility: [facility] Address: [address] [place], [place] [address] Performed By: #### L [id number] #### [facility] CLIA [id number] [address] [place] [address] [place] [facility] CLIA [id number] [address] [place], [place] [address] [place] PAP DISCLAIMER COMMENT The Pap Smear is a screening test for cervical cancer. False negative results occur with all screening tests, emphasizing the need for rescreening at recommended intervals, and clinical correlation. Normal [facility] Comment on above: Order Comment: Speci men Type: FLUID SPECIMEN Ordering Facility: [facility] Address: [address] [place] [address] Performed By: #### L [id number] #### [facility] CLIA [id number] [address] [place] [address] LAB CLIA [id number] [address] [place] [address] PAP PROP MAKING SUPERVISOR COMMENT This specimen has be en analyzed by the ThinPrep Imaging System, an automated imaging and review system, which assists the laboratory in evaluating cells on ThinPrep Pap tests. Following automated imaging, selected wilkinson from every slide are reviewed by a silo worker. Normal [facility] Comment on above: Order Comment: Speci men Type: FLUID SPECIMEN Ordering Facility: [facility] Address: [address] [place] [address] Performed By: #### L [id number] #### [facility] CLIA [id number] [address] [place] [address] STATES [facility] CLIA [id number] [address] [place] [address] POC DECAL DECORATOR ULTRASOUNDon 03-21-20 24 Indication Viability; confirm cardiac activity Impression Single intrauterine gestational sac, CRL is appropriate for clinical dates, corresponding to JUDD 10/28/24 cardiac activity is not visualized Recommendations Follow up for NT scan if desired Method Transabdominal ultrasound examination, Transvaginal ultrasound examination. View: Adequate visualization Wade . Number of embryos: 1 Dating LMP on: 01/22/2024 GA by LMP 8 w + 3 d JUDD by LMP: 10/28/2024 Ultrasound examination on: 03/21/2024 GA by U/S based upon: CRL GA by U/S 7 w + 6 d JUDD by U/S: 11/01/2024 Assigned: based on the LMP, selected on 03/21/2024 Assigned GA 8 w + 3 d Assigned JUDD: 10/28/2024 Biometry Standard FHR 164 bpm CRL 14.7 mm 7w 6d 5% Hadlock Assessment Gestational sac: visualized Location: intrauterine Yolk sac: visualized Embryo: visualized CRL 14.7 mm 7w 6d 5% Hadlock Cardiac activity: present FHR 164 bpm General Evaluation Cardiac activity present. FHR 164 bpm Performed By: Reena Telles NP Read By: Reena Telles NP MATERNAL MEDICINE [facility] Radiology Study observation (narrative) [facility] LMPon 04-24-2022 Last menstrual period start date 07Apr2022 [email or web address] Phone: STAFF NURSE ICU RESOURCE TEAM - Office Visiton 04-04 STAFF NURSE ICU RESOURCE TEAM - Office Visit Diagnoses/Problems Health Maintenance/Risks Encounter for preventive health examination (V70.0) (Z00.00) Orders Renew: Viorele 0.15-0.02/0.01 MG (21/09) Oral Tablet; TAKE 1 TABLET BY MOUTH ONCE DAILY Provider Impressions RF OCP RTO 1 year and PRN Chief Complaint Patient is here for yearly exam. Patient does self breast exams regularly. LMP 04/07/22 PT HAS NO CONCERNS. RENEWED CONTROL History of Present IllnessPt. presents for annual exam up to date on pap Wants to continue OCP Denies any c/o or concerns Review of Systems Constitutional: no fever and no chills. Respiratory: no shortness of breath. Active Problems Problems Encounter for Papanicolaou smear of cervix (V76.2) (Z12.4) exam (V24.2) (Z39.2) Screen for STD (sexually transmitted disease) (V74.5) (Z11.3) Urine test negative (V72.41) (Z32.02) Past Medical History Problems History of Papanicolaou smear (V45.89) (Z98.890) 08/10/2020- NIL History of Menstruation Age 13 History of NVD (normal vaginal delivery) (650) (O80) 02/17/21 39 WEEKS AND 5 DAYS, VAGINAL, MALE 7LBS 8OZ Surgical History Problems History of Tonsillectomy History of Jonancy tooth extraction Family History Mother Family history of bleeding disorder (V18.3) (Z83.2) Grandmother Family history of diabetes mellitus (V18.0) (Z83.3) Family history of malignant neoplasm of breast (V16.3) (Z80.3) Social History Problems Consumes alcohol occasionally (V49.89) (Z78.9) Does not use illicit drugs (V49.89) (Z78.9) Does not use tobacco (V49.89) (Z78.9) Sexually active Allergies Medication Penicillins Recorded By: Lore Parada; 07/13/2020 9:44:49 AM Current Meds Medication NameInstruction Vitamin TABS Viorele 0.15-0.02/0.01 MG (21/09) Oral TabletTAKE 1 TABLET BY MOUTH ONCE DAILY Vitals Vital Signs Recorded: [id number] 03:48PM [id number] Sukwsitqc14 Height5 ft 4 in Nqolkm274 lb 10.02 oz BMI Wudcuhvkfe58.86 kg/m2 BSA Calculated1.89 [id number] Physical Exam Constitutional: Alert and in no acute distress. Well developed, well nourished Pulmonary: No respiratory distress Chest: Breasts: normal appearance, no nipple discharge and no skin changes, palpation of breasts and axillae: no palpable mass and no axillary lymphadenopathy and sexual maturation normal Psychiatric: alert and oriented x 3., affect normal to patient baseline, mood: appropriate and judgment and insight: intact Signatures Electronically signed by : MARIELA Shields; Apr 24 2022 4:25PM EST (Author) [facility] PUL[facility]ERIESon 08-03 CT PULMONARY ARTERIES EXAMINATION: CT PULMONARY ARTERIES HISTORY: ORDERING SYSTEM PROVIDED HISTORY: Pulmonary embolism (PE) suspected, positive D-dimer, TECHNOLOGIST PROVIDED HISTORY: Illness/Other Reason for exam: both legs warm to touch, slight pain, elevated d-dimer Encounter Type: Initial Additional signs and symptoms: n ORDERING SYSTEM PROVIDED DIAGNOSIS CODES: L52 Erythema nodosum COMPARISON: None TECHNIQUE: CT angiography of the pulmonary arteries following the administration of intravenous contrast. Coronal and sagittal MIP images were performed. Dose reduction techniques were achieved by using automated exposure control and/or adjustment of mA and/or kV according to patient size and/or use of iterative reconstruction technique. CONTRAST: IOPAMIDOL 76 % INTRAVENOUS SOLUTION - 75 mL, FINDINGS: Exam degraded by respiratory motion. There is adequate contrast opacification of the pulmonary arteries for evaluation for pulmonary embolism to the origin of the segmental branches. No filling defect to the origins of the segmental branches to suggest pulmonary embolism given respiratory motion. The heart is not enlarged. The aorta is not aneurysmal. Subcentimeter mediastinal and axillary lymph nodes are present. There is no suspicious thyroid nodule. Esophagus is normal in course. The trachea and mainstem bronchi are patent. There is no focal consolidation, pleural effusion or pneumothorax. There is no aggressive appearing osseous lesion. Visualized organs and soft tissues of the upper abdomen demonstrate no acute finding. IMPRESSION: Exam degraded by respiratory motion. Within confines tissue is no acute finding, specifically no pulmonary embolism to the origin of the segmental branches. Workstation ID: [id number] Dictated by: NAYLA CM on ThuAug 27, 2021 9:45:39 PM EDT Transcribed by: NAYLA CM on ThuAug 27, 2021 9:45:39 PM EDT Finalized by: NAYLA CM on ThuAug 27, 2021 9:45:39 PM EDT [facility] Comment on above: Order Comment: Injur y/Trauma or Illness?:Illness/Other How long have you had these symptoms (acute/chronic)?:Acute Reason for exam?:both legs warm to touch, slight pain, elevated d-dimer Type of Exam?:Initial Additional signs and symptoms?:n IO HCG, Urine Test on 04-03-2021 HCG ( test) Ql (U) Negative [employer] Work Phone: LMPon 04-03-2021 Last menstrual period start date 28Mar2021 [employer] Work Phone: Daily Progress Note - OB-Pos t-partumon 02-19-2021 Daily Progress Note - EI-Azeg-kijrmq Current Stage: Stage: Post- Subjective Data: Post : Ambulate: Yes Flatus: Yes Tolerate Diet: Yes Lochia: Moderate : Patient doing well. Pain controlled. Bleeding controlled. Breast-feeding. Denies any fevers chills chest pain shortness of breath. Objective Information: Objective Information: T PRBPSpO2 [id number]/6198% Date/Time02/19 4: 4: 4: 4: 4:44 Range(36.3C - 36.6C ) (81 - 113 ) (16 - 16 ) (123 - 142 )/ (61 - 85 ) (95% - 99% ) Pain reported at 02/19 0:27: 2 = Mild Physical Exam: Constitutional: alert, oriented Obstetric: Uterus firm below elective Eyes: pupils equal, sclerae clear Respiratory/Thorax: Clear to auscultation bilaterally Cardiovascular: Regular rate rhythm Gastrointestinal: Soft positive bowel sounds probably tender nondistended Extremities: Negative calf pain Skin: no rashes or lesions Assessment and Plan: Assessment: 1)PPD#2-patient doing well. Pain controlled. Meeting milestones for discharge 2) DVT prophylaxis-SCDs ambulate 3)anemia-Fe/colace Electronic Signatures: Alexandre Connor) (Signed 19-Feb-2021 07:40) Authored: Current Stage, Subjective Data, Objective Data, Assessment and Plan, Note Completion Last Updated: 19-Feb-2021 07:40 by Alexandre Connor () [facility] Safe Sleep Environment Scree marciano - Newbornon 02-19-2021 Safe Sleep Environment Screening - Safe Sleep Environment Screening: Safe Sleep Environment Screening: Does Patient Need a Cribno Electronic Signatures: Opal Gonzalez) (Signed 19-Feb-2021 09:52) Authored: Safe Sleep Environment Screening Last Updated: 19-Feb-2021 09:52 by Opal Gonzalez (BASSAM) [facility] CBCon 02-18-2021 Erythrocyte distribution width (RBC) [Ratio] 17.4 % High 11.5 - 14.5 [facility] Comment on above: Performed By: #### T +S #### [address] [address] Hematocrit (Bld) [Volume fraction] 29.4 % Low 36.0 - 46.0 [facility] Comment on above: Performed By: #### T +S #### [address] [address] Hemoglobin (Bld) [Mass/Vol] 9.1 g/dL Low 12.0 - 16.0 [facility] Comment on above: Performed By: #### T +S #### [address] [address] MCHC (RBC) [Mass/Vol] 31.0 g/dL Low 32.0 - 36.0 [facility] Comment on above: Performed By: #### T +S #### [address] [address] MCV (RBC) [Entitic vol] 81 fL Normal 80 - 100 [facility] Comment on above: Performed By: #### T +S #### [address] [address] Platelets (Bld) [#/Vol] 134 10*3/uL Low 150 - 450 [facility] Comment on above: Performed By: #### T +S #### [address] [address] RBC 3.64 x10E12/L Low 4.00 - 5.20 [facility] Comment on above: Performed By: #### T +S #### [address] [address] WBC (Bld) [#/Vol] 13.3 10*3/uL High 4.4 - 11.3 [facility] Comment on above: Performed By: #### T +S #### [address] [address] Discharge [id number] 021 Discharge Profile2 Discharge Orders: Anticipated Discharge Date: Anticipated Discharge [id number] DNAR: DNAR Status: none : Call 911: Call 911 or go to the nearest emergency room RIGHT AWAY if you have:. Chest pain or pressure; heart racing. Shortness of breath or difficulty breathing. Seizures; change in alertness or confusion. Thoughts of hurting yourself or someone else. Call Provider: Call your OB Provider if you have: (If you can't reach your healthcare provider, call 911 or go to an emergency room). Heavy bleeding. Soaking a large pad every hour or passing large clots. Incision that is not healing, is red or more painful, or has pus (if you have an incision). Red or swollen leg that is painful or warm to touch. Temperature of 100.4 degrees F or higher; bad-smelling vaginal blood or discharge. Headache that does not get better, even after taking medicine; bad headache with vision changes; pain in the upper right area of your belly. Signs of Depression. Examples include: 1. Persistent sadness 2. Frequent crying 3. Sleep problems 4. Excessive worrying 5. Feeling unable to cope. Red or swollen breast that is painful or warm to touch. Pain, burning, or difficulty with emptying your bladder. Severe constipation (more than 5 days). Trust your instincts. Always get medical care if you are not feeling well or have questions or concerns.. Activity: Return to normal activity as tolerated. Patient Instructions: Pelvic Rest: DO NOT place anything in vagina until cleared by OB Provider. Blood Pressure: Any Blood Pressure Systolic (upper number) 160 or higher OR Diastolic (bottom number) 110 or higher, call your doctor or specimen accessioner immediately. Blood Pressure Systolic (upper number) 150 - 159 OR Diastolic (bottom number) 100 - 109, repeat in one hour. If repeat Blood Pressure Systolic 150 - 159 OR Diastolic 100 - 109, call your doctor or specimen accessioner to discuss blood pressure management.. Diet: Regular. Follow-Up - OB Provider: Physician/Dept/ServiceOB Provider Dr. Hernandez Call to Schedule in4 weeks, Provider FINAL REVIEW of Orders: Final Review: Final Review of Medication Reconciliation and Orders Completedby Physician Reviewing ProviderAlexandre Connor DO at 18-Feb-2021 08:20:55 Other Clinician Instructions: Other Instructions: Other Clinician InstructionsAny woman can have complications after the of a baby including a blood clot, a heart problem, hypertensive disorder/eclampsia, depression, hemorrhage, or infection. Notify all providers of your delivery date up to one year after .* Call 911 or go to nearest emergency room right away if you have: PAIN or pressure in chest; OBSTRUCTED breathing or shortness of breath; SEIZURES; THOUGHTS of hurting yourself or your baby; heart palpitations/racing; change in alertness/confusion. Call your provider if you have: BLEEDING, soaking through a pad/hour, or blood clots the size of an egg or bigger; INCISION (episiotomy stitches or site) that is not healing (increased redness, pain, drainage/pus, or separation); RED or swollen leg/calf that is painful or warm to touch, especially in one leg more than the other; TEMPERATURE of 100.4 F or higher or chills; HEADACHE that does not get better with medicine, rest or hydration, or bad headache with vision changes like spots or flashing lights; increased swelling of face, hands or legs; severe cramps or upper right belly pain; red or swollen breast that is painful or warm to touch; an unusual, foul odor from your vaginal discharge; pain, burning, or difficulty during urination; severe constipation (more than 5 days); feelings of depression (such as depressed mood, loss of interest in enjoyable things, unable to care for yourself, trouble sleeping, lack of appetite, or feeling worthless). If you cant reach your provider or symptoms worsen, call 911 or go to nearest emergency room. *Information obtained from [facility]: Save Your Life: Get Care for These POST- Warning Signs [facility] Use yassine bottle with warm water every time you use the bathroom Squirt water on the outside vaginal area. Do not squirt water inside the vagina Warm water helps rinse/wash off the blood. It is also comforting and promotes healing Take it home and use it for the first week Uterine Changes/Lochia Youre going to feel menstrual-like cramps for about the first week Cramping may get worse after each baby Cramping typically gets worse while Uterus may take up to 6 weeks to move back to its normal size in your pelvis The first few days will be heavy, then take the course of a period Vaginal bleeding can last 2-6 weeks, usually less if youre Discuss signs of hemorrhage (saturated pad in <1hr, egg sized blood clots) Gibbon-sized blood clots ar (more content not included)... [facility] Order Reconciliationon 02-18 Order Reconciliation Page 1 Discharge Reconciliation Document Reconciliation Type: Discharge requested on behalf of Alexandre Connor (Physician) done by Alexandre Connor (DO) Discharge - Reconciliation: 18-Feb-2021 08:22 by: Alexandre Connor (DO) Home Medications EnteredHOME MEDICATIONS AT DISCHARGE DateReconciliation Comment/ Additional Information 1 oral capsule 1 tab(s) orally once a day 17-Feb-2021 03:31 1 oral capsule 1 tab(s) orally once a day 17-Feb-2021 03:31 1 oral capsule is continued as 1 oral capsule Current OrdersDateHOME MEDICATIONS AT DISCHARGE DateReconciliation Comment/ Additional Information Acetaminophen Tablet (TYLENOL)DOSE = 975 mg Oral Every 6 HoursClinician Notes: Give with Ibuprofen. 17-Feb-2021 12:03 Acetaminophen is not required Benzocaine 20% - Menthol 0.5% Topical Eleanor (DERMOPLAST)DOSE = 1 application(s) Topical 4 Times a Day, PRN DiscomfortApply to Perianal Area 17-Feb-2021 12:03 Benzocaine 20% - Menthol 0.5% Topical is not required Bisacodyl Rectal Suppository (DULCOLAX)DOSE = 10 mg Rectal Daily, PRN Severe constipation 17-Feb-2021 12:03 Bisacodyl Rectal is not required Carboprost IntraMuscular (HEMABATE)DOSE = 250 microgram(s) IntraMuscular Once, PRN post bleeding in non-asthmatic patientClinician Notes: Consult provider prior to administration. 17-Feb-2021 12:03 Carboprost IntraMuscular is not required diphenhydrAMINE Capsule (BENADRYL)DOSE = 25 mg Oral Every 6 Hours, PRN Itching 17-Feb-2021 12:03 diphenhydrAMINE is not required Docusate Capsule (COLACE)DOSE = 100 mg Oral 2 Times a Day, PRN Stool Softening 17-Feb-2021 12:03 docusate sodium 100 mg oral capsule 1 cap(s) orally 2 times a day, As needed, Stool Softening 18-Feb-2021 08:22 Prescription is created for docusate sodium 100 mg oral capsule Enoxaparin SubCutaneous (LOVENOX)DOSE = 60 mg SubCutaneous Every 24 HoursClinician Notes: Wait 4 hours after neuraxial catheter removal AND 24 hours after placement of neuraxial catheter. BMI 40-49.9. 17-Feb-2021 12:03 Enoxaparin SubCutaneous is not required Ferrous Sulfate Tablet (FEOSOL)DOSE = 325 mg Oral 2 Times a Day 18-Feb-2021 08:14 ferrous sulfate 325 mg (65 mg elemental iron) oral tablet 1 tab(s) orally 2 times a day 18-Feb-2021 08:21 Prescription is created for ferrous sulfate 325 mg (65 mg elemental iron) oral tablet hydrALAZINE (APRESOLINE) Injectable DOSE = 5 mg IntraVenous Push Once, PRN Acute-onset, severe HTN w/out known, suspected CADClinician Notes: Consult provider prior to administration. Push over more than 2 minutes. Systolic greater than or equal to 16 17-Feb-2021 01:11 hydrALAZINE (APRESOLINE) Injectable is not required Ibuprofen Tablet (ADVIL, MOTRIN)DOSE = 600 mg Oral Every 6 HoursClinician Notes: Give with Acetaminophen. 17-Feb-2021 12:03 ibuprofen 600 mg oral tablet 1 tab(s) orally every 6 hours 18-Feb-2021 08:21 Prescription is created for ibuprofen 600 mg oral tablet Labetalol Injectable (TRANDATE)DOSE = 20 mg IntraVenous Push Once, PRN Acute-onset, sev HTN w/o active asthma/ kayla<60Clinician Notes: Consult provider prior to administration. Push over more than 2 minutes. Systolic greater than or equal to 160 OR 17-Feb-2021 01:11 Labetalol Injectable is not required Lactated Ringers Infusion IV Bag Volume = 1,000 mL Run at: 125 mL/hr IntraVenous 17-Feb-2021 03:13 Lactated Ringers Infusion is not required Lactated Ringers Infusion IV Bag Volume = 1,000 mL Run at: 125 mL/hr IntraVenous 17-Feb-2021 12:03 Lactated Ringers Infusion is not required Lanolin Topical Ointment (LANSINOH)DOSE = 1 application(s) Topical Daily, PRN Dry SkinApply to NippleClinician Notes: After and PRN 17-Feb-2021 12:03 Lanolin Topical is not required Loperamide Capsule (IMODIUM)DOSE = 4 mg Oral Every 2 Hours, PRN If Carboprost given or loose stoolsClinician Notes: Max dose of 16mg / 24 hours 17-Feb-2021 12:03 Loperamide is not required Magnesium Hydroxide -Al Hydrox -Simethicone Oral Liquid (MAALOX)DOSE = 30 mL Oral Every 4 Hours, PRN Indigestion 17-Feb-2021 12:03 Magnesium Hydroxide -Al Hydrox -Simethicone Oral Liquid is not required Magnesium Hydroxide Oral Liquid CONCENTRATE (MILK OF MAGNESIA)DOSE = 10 mL Oral Every 24 Hours, PRN Constipation 17-Feb-2021 12:03 Magnesium Hydroxide Oral Liquid CONCENTRATE is not required Measles -Mumps -Rubella (Live) MMR Vaccine DOSE = 0.5 mL SubCutaneous Once, PRN if patient screen is non- immune or equivocalClinician Notes: administer if patient screen is non- immune or equivocal 17-Feb-2021 12:03 Measles -Mumps -Rubella (Live) MMR Vaccine is not required medroxyPROGESTERone Injectable (PROVERA)DOSE = 150 mg IntraMuscular Once, PRN contraceptionClinician Notes: Before DischargeNotes from Pharmacy: Low Risk Hazardous Drug- Single Nitrile Glove 17-Feb-2021 12:03 medroxyPROGESTERone Injectable is not required Methylergonovine Injectable (METHER (more content not included)... [facility] Admission Risk Screen - OBon 02-17-2021 Admission Risk Screen - OB Allergies: Allergies: penicillin: Rash Patient Verification: New W ID Band Applied in my Departmentyes (1) Patient Identity Verified Bypatient(1) ID Band FULL Name, include Middle, spelling matches patient's ID used for verificationyes (1) ID Band Matches Patient ID used for Verficationyes (1) ID Band MRN Matches EMR MRNyes (1) Visitor Restriction: Coronavirus Visitor Restriction: Reasonable restrictions to in-person visitors will be observed due to current coronavirus pandemic. Travel History: COVID-19 Screening Completedno exposure or symptoms(1) Travel or Exposure Past 30 DaysNO travel to International locations in the past 30 days Advance Directive: Advance Directive/DNRno (1) Advance Directive Information Givenpatient/family declined (1) Odell Fall Screen: History of falling (immediate or previous)no (0) Secondary Diagnosisno (0) Intravenous Therapy/ Heparin/Saline Lockno (0) Gait/Transferringnormal/ bedrest/wheelchair (0) Ambulatory Aidsnone/bedrest/nurse assist (0) Mental Statusoriented to own ability (0) Score: Low risk (<25). Moderate risk (25-44). High risk (>44).0 Odell InterventionsLOW INTERVENTIONS: *patient oriented to surroundings and call system, * patient/family falls education completed and documented, *patients fall status communicated during bedside handoff, *whiteboard updated, *mode of toileting discussed with patient, *bed in low position with brakes locked, *call light in reach, * non-skid footwear Functional screen: Functional Screen: In the recent/past 2-4 weeks, patient or family have noticedno issues that require a rehabilitation consult at this time Learning Assessment (Patient): Patient is Able to be Assessed for Learningyes (1) Factors Influencing Readiness to Learnanxiety(2) Factors that Impact Ability to Learnacuteness of illness(2) Devices/Methods Used to Communicatecommunication board(2) Learning Preferencesaudio(2) Cultural Considerationsnone (2) Developmental Considerationsnone (2) Uatsdin Considerationsnone (2) Learning Assessment (Other Learner): Other learner availableno (1) Nutrition Risk Screen: Nutrition Risk Screenno indicators present Nutrition Consult needed this visitno Can Patient Participate in Room Serviceyes Pain Screen: Pain Control Method: Laborrepositioning; relaxation; medication; epidural Pain Control Method: Postpartummedication Pain Scalenumerical 0-10 Pain Scale Educationteaching provided Acceptable Pain Level7 = Severe Presence of Painyes Current Pain Locationabdomen; back Pain Characteristicscramping Pain Duration/Frequencyinterm ittent Factors that Affect Painactivity Expression of Pain (nonverbal)change in activity pattern, restless, rocking, rubbing, verbalization Chronic Painno Skin - Hollis Scale: Hollis Scale (daily): Hollis: Sensory Perception (response to environment)(4) no impairment Hollis: Moisture (degree skin exposed to moisture)(4) rarely moist Hollis: Activity (ability to walk)(4) walks frequently Hollis: Mobility (amount/control of body movement)(4) no limitation Hollis: Nutrition (quality of food intake)(4) excellent Hollis: Friction and Shear(3) no apparent problem Hollis: Score23 Pressure Injury Present on Admissionno Spiritual Screen: Are there any cultural, spiritual, yazdanism practices/values/needs that are important for us to knowno Do you want a visit/item from [facility] Would you like your Histotechnologist/Marshmallow Machine Worker notifiedno Depression Screen: During the past month, have you often been bothered by feeling down, depressed or hopelessno (1) During the past month, have you often had little interest or pleasure in doing thingsno (1) Have you had any thoughts of harming anyone elseno (1) [place] Suicide: Risk Screen Not Applicable/Able to Answerable to be screened In the Past Month: Have you wished you were or could go to sleep and not wake upno In the Past Month: Have you had any actual thoughts of killing yourselfno Lifetime: Have you ever done, started to do, or prepared to do anything to end your lifeno [place] Suicide Risknegative Family Violence Screen: Are you or have you been threatened or abused physically, emotionally, or sexually by anyoneno (1) Has anyone ever threatened to hurt your family or your petsno (1) Does anyone try to keep you from having/contacting other friends or doing things outside your homeno (1) Do you feel UNSAFE going back to the place where you are livingno (1) Do you feel anyone has exploited or taken advantage of you financially or of your personal propertyno (1) Clinical assessment: Are there any apparent signs of injuries/behaviors that could be related to abuse/neglectno (1) Social Service Consult for abuse/neglect needed this visitno Vaccinations: Vaccination - Influenza Vaccination Screen: Is it flu season (b (more content not included)... [facility] CBCon 02-17-2021 Erythrocyte distribution width (RBC) [Ratio] 17.1 % High 11.5 - 14.5 [facility] Comment on above: Performed By: #### T +S #### [address] [address] Hematocrit (Bld) [Volume fraction] 33.7 % Low 36.0 - 46.0 [facility] Comment on above: Performed By: #### T +S #### [address] [address] Hemoglobin (Bld) [Mass/Vol] 10.6 g/dL Low 12.0 - 16.0 [facility] Comment on above: Performed By: #### T +S #### [address] [address] MCHC (RBC) [Mass/Vol] 31.4 g/dL Low 32.0 - 36.0 [facility] Comment on above: Performed By: #### T +S #### [address] [address] MCV (RBC) [Entitic vol] 80 fL Normal 80 - 100 [facility] Comment on above: Performed By: #### T +S #### [address] [address] Platelets (Bld) [#/Vol] 164 10*3/uL Normal 150 - 450 [facility] Comment on above: Performed By: #### T +S #### [place] [id number] RBC 4.19 x10E12/L Normal 4.00 - 5.20 [facility] Comment on above: Performed By: #### T +S #### [place] [id number] WBC (Bld) [#/Vol] 14.6 10*3/uL High 4.4 - 11.3 [facility] Comment on above: Performed By: #### T +S #### [place] [address] COMPREHENSIVE PANELon 2020 Albumin [Mass/Vol] 3.4 g/dL Normal 3.4 - 5.0 [facility] Comment on above: Performed By: #### C MP #### [place] [id number] ALP [Catalytic activity/Vol] 148 U/L High 33 - 110 [facility] Comment on above: Performed By: #### C MP #### [place] [id number] ALT [Catalytic activity/Vol] 15 U/L Normal 7 - 45 [facility] Comment on above: Result Comment: Naima ents treated with Sulfasalazine may generate falsely decreased results for ALT. Performed By: #### C MP #### [place] [id number] Anion gap [Moles/Vol] 17 mmol/L Normal 10 - 20 [facility] Comment on above: Performed By: #### C MP #### [address] [address] AST [Catalytic activity/Vol] 18 U/L Normal 9 - 39 [facility] Comment on above: Performed By: #### C MP #### [address] [address] Bilirubin [Mass/Vol] 0.2 mg/dL Normal 0.0 - 1.2 [facility] Comment on above: Performed By: #### C MP #### [place] [id number] Calcium [Mass/Vol] 8.8 mg/dL Normal 8.6 - 10.3 [facility] Comment on above: Performed By: #### C MP #### [place] [id number] Chloride [Moles/Vol] 103 mmol/L Normal 98 - 107 [facility] Comment on above: Performed By: #### C MP #### [place] [id number] Creatinine [Mass/Vol] 0.61 mg/dL Normal 0.50 - 1.05 [facility] Comment on above: Performed By: #### C MP #### [place] [id number] GFR- AM. >60 Normal >60 [facility] Comment on above: Result Comment: CALC ULATIONS OF ESTIMATED GFR ARE PERFORMED USING THE MDRD STUDY EQUATION FOR THE IDMS-TRACEABLE CREATININE METHODS. CLIN CHEM 2007;53:766-72 Performed By: #### C MP #### [address] [address] GFR-NON AM. >60 Normal >60 [facility] Comment on above: Performed By: #### C MP #### [address] [address] Glucose [Mass/Vol] 105 mg/dL High 74 - 99 [facility] Comment on above: Performed By: #### C MP #### [address] [address] HCO3 (Bld) [Moles/Vol] 17 mmol/L Low 21 - 32 [facility] Comment on above: Performed By: #### C MP #### [address] [address] Potassium [Moles/Vol] 3.6 mmol/L Normal 3.5 - 5.3 [facility] Comment on above: Performed By: #### C MP #### [address] [address] Protein [Mass/Vol] 6.6 g/dL Normal 6.4 - 8.2 [facility] Comment on above: Performed By: #### C MP #### [place] [id number] Sodium [Moles/Vol] 133 mmol/L Low 136 - 145 [facility] Comment on above: Performed By: #### C MP #### [place] [address] Urea nitrogen [Mass/Vol] 11 mg/dL Normal 6 - 23 [facility] Comment on above: Performed By: #### C MP #### [place] [id number] CORONAVIRUS 2019, SCREEN ASY MPTOMATICon 02-17-2021 SARS-CoV-2 (COVID-19) RNA SUZETTE+probe Ql (Unsp spec) Not detected Normal Not Detected [facility] Comment on above: Result Comment: . This test has received FDA Emergency Use Authorization (EUA) and has been verified by [facility]. This test is only authorized for the duration of time that circumstances exist to justify the authorization of the emergency use of in vitro diagnostic tests for the detection of SARS-CoV-2 virus and/or diagnosis of COVID-19 infection under section 564(b)(1) of the Act, 21 U.S.C. 360bbb-3(b)(1), unless the authorization is terminated or revoked sooner. [facility] is certified under CLIA-88 as qualified to perform high complexity testing. Testing is performed in the [facility] laboratory located at [address] [place] [address]. SARS-CoV-2/Flu/RSV Multiplex Test: Fact sheet for providers: https://www.fda.gov/media/739404/download Fact sheet for patients: https://www.fda.gov/media/356130/download Performed By: #### C OVSC ####[address] [address] Lab Specimen Source Nasal, Nasopharyngeal [facility] Comment on above: Performed By: #### C OVSC ####[address] [address] Clinical Event Note-Labor No dudley 02-17-2021 Clinical Event Note-Labor Note Clinical Event: Clinical Event Note: TopicLabor Note Details Cx:complete Ca TII [place] Q1-2min 1)PROM-Complete and starting to push. Pitocin per protocol 2)Cat II- Variable with push. MOd santi, Interventions as needed 3)GBS-Neg 4)Pain-Epidural in place Electronic Signatures: Alexandre Connor () (Signed 17-Feb-2021 10:02) Authored: Clinical Event Note Last Updated: 17-Feb-2021 10:02 by Alexandre Connor () [facility] Covid 19 Resultson 1 SARS-CoV-2 (COVID-19) RNA SUZETTE+probe Ql (Unsp spec) NEGATIVE COVID-19 Test Coronaviruses are common world-wide and are the cause of many common colds. SARS-COV2 is a new coronavirus that began circulating worldwide in 2019 so we are calling it COVID-19. It has been estimated that four out of five patients with COVID-19 will recover at home without the need for medical attention. Symptoms of COVID-19 may include cough, fever, shortness of breath, loss of taste or smell and other flu-like symptoms including chills, sore muscles, sore throat, and headache. Severe illness is more common in older people and people with other health problems such as high blood pressure, obesity, and immune system problems. If the test is positive, you have COVID-19. You will be contacted by the ordering physicians office and instructed to remain on home isolation, in accordance with CDC guidelines. You may also be contacted by the [facility] to see if any of your close contacts may have been exposed to the virus and need to quarantine. If the test is negative, you likely do not have COVID-19 at this time, but you still may have a different illness that can spread to other people (like Influenza, or the Flu) and could still be at risk for getting COVID-19. We recommend that you stay away from other people to limit the spread of illness until your symptoms are improving and you are fever-free for 24 hours without the use of fever lowering medications such as acetaminophen or ibuprofen. No test is 100% accurate so if you are still concerned you may have COVID-19, talk to your doctor about the need to continue to stay away from others. Medicines Unless your provider told you not to use the following: Acetaminophen (Tylenol and others) is generally safe. Anti-inflammatory medications, such as Ibuprofen (Advil or Motrin) or Naproxen (Aleve) can also be used. Qqih-btp-ujoizfw cough and cold medicines can be used according to the instructions on the package. Some bagu-esi-ihfqphg medicines also contain acetaminophen. Make sure you are not taking more than your recommended dose. For those not hospitalized, there is no specific treatment available for this illness. Antibiotics do not treat Coronaviruses. Follow-Up Follow up with your doctor by scheduling a virtual visit or consider follow-up at one of our urgent care fever clinics. If you are having difficulty breathing, or are very weak and having difficulty standing, this is a medical emergency. Call 911 or have someone take you to the nearest emergency room immediately. If possible, wear a facemask. Additional guidance from the CDC for patients who tested POSITIVE for COVID-19 How to isolate: Isolate yourself in a specific room at home and limit your contact with others. Use a separate bathroom from other members of the household, when possible. Leave home only to get essential medical care. Do not go to work, school or public areas. Avoid using public transportation, ride-sharing, or taxis. Restrict contact with pets and other animals. If you must care for your pet or be around animals while you are sick, wash your hands before and after your interaction and wear a facemask. Make sure that shared spaces in the home have good airflow, such as by an air conditioner or an opened window, weather permitting. Personal Hygiene Procedures: Wear a face mask when in the same room as other people or pets. If a face mask interferes with your breathing, others should wear a mask when sharing space with you. Frequent hand-washing: wash your hands with soap and water for at least 20 seconds. If soap and water are not available, use alcohol-based hand cooky machine operator. Avoid touching your eyes, nose, and mouth with unwashed hands. Household Hygiene Procedures: Avoid sharing personal household items such as dishes, glassware, cups, eating utensils, towels or bedding with other people or pets in your home. After use, these items should be washed with soap and hot water. Disinfect all high-touch surfaces every day with antibacterial cleaning solutions such as Lysol wipes, bleach, cleansers, etc. High-touch surfaces include tabletops, doorknobs, bathroom fixtures, toilets, phones, keyboards, tablets and bedside tables. Immediately clean any surfaces that may have blood, poop or body fluids on them, using antibacterial cleaning solutions such as Lysol wipes, bleach, cleansers, etc. If clothing or bedding come into contact with blood, poop or body fluids, they should be washed immediately. Follow the directions on the laundry detergent and clothing labels but hot water is recommended when possible. Stopping home isolation precautions: If possible, consult your doctor before stopping home isolation precautions. According to the CDC, you can discontinue home isolation precautions when you have met both of these criteria: Your fever and respiratory symptoms have been gone for 24 arian (more content not included)... [facility] Delivery Recordon 02-17-2021 Delivery Record Lab Tests/Results: Labs: Labs: Blood Typed Date: 17-Feb-2021 Blood Type: O positive Antibody Screen Results: negative Chlamydia Date: 10-Aug-2020 Chlamydia Results: negative Gonorrhea Date: 10-Aug-2020 Gonorrhea Results: negative Group B Strep Date: 22-Jan-2021 Strep Results: negative GCT (dd-mmm-yy): 13-Nov-2020 GCT result: 122 HBsAG Date: 13-Aug-2020 HBsAG Results: negative HIV Date: 13-Aug-2020 HIV Results: negative Rubella Date: 13-Aug-2020 Rubella Results: immune Rubella Comments: Result Value POSITIVE Syphilis (mmm-dd-yyyy): 13-Aug-2020 Syphilis Results: negative Delivery Information: Car Varnisher Information: Baby's Post Discharge Care Provider (Provider Name, Address and Phone Number) MEDICAL LABORATORY TECHNICIAN A Delivery Information: Baby A Delivery: Rupture of Membranes date/[id number] 23:30 Amniotic Fluid Colorclear Delivery Typevaginal delivery Delivery Locationlabor and delivery Delivery Date/[id number] 11:26 Length of Time of ROM (rounded down to nearest hour)35 Sexmale Identification Band [id number] Electronic Transponder [id number] Weight (kg)3.425 kilogram(s) Length (cm)50.5 centimeter(s) Head Circumference (cm)36 centimeter(s) Chest Circumference (cm)34.5 Delivery of Placenta (hh:mm)11:29 Baby A: Placenta disposaldiscarded 1 Min: Heart Rat[place]ore than 100 beats/min Respiratory Rategood, crying Muscle Tonewell flexed Reflex Irritabilitycough or sneeze Colorbody pink, extremities blue 1 Minute Score, Baby A9 Apgars assessed byL. BASSAM Goddard 5 Min: Heart Ratemore than 100 beats/min Respiratory Rategood, crying Muscle Tonewell flexed Reflex Irritabilitycough or sneeze Colorbody pink, extremities blue 5 Minute Score, Baby A9 Apgars assessed byL.BASSAM Goddard Resuscitation Efforts: Vigorous at Birthyes Resuscitation Effortstactile stimulation Baby A: Transfer Baby A: Transfer toRemains with mother Delivery Team: Baby BASSAM [place] Electronic Signatures: Stacey Goddard (RN) (Signed 17-Feb-2021 14:51) Authored: Lab Tests/Results, [place] Delivery Information Last Updated: 17-Feb-2021 14:51 by Stacey Goddard (RN) [facility] Discharge Planning [id number] 1 Discharge Planning Note2 Discharge Planning: Discharge Barriersnone Planned Dispositionhome [place] of Choice Explainedyes Anticipated Discharge [id number] Discharge Planning Date and Time: 02/17/21 0248 Discharge Planning initiated on admission and formally reevaluated at this time. Patient independent with ambulation and ADL's prior to admission. Additional home going needs anticipated at this time: none Handouts given to and reviewed with patient/caregiver per unit folder standards. Patient verbalizes understanding and denies any other post-discharge needs. Plan to continue to assess home going/discharge needs. Coordinate with interdisciplinary team as needed. Signature: India Aguilar RN Date and Time: 02/19/21 @ 1200 According to plan, patient discharged home with infant and FOB Discharge instructions printed and reviewed. Teaching provided on new medications, self-care, signs and symptoms to report, and follow-up appointments. Patient verbalized understanding and denies any questions at time of discharge. Patient instructed to call provider with any additional questions after discharge. Signature: Shreya Jeter RNcustomer experience associate: Discharge Planning Assessment [id number] Arrived Fromsharon (1) Nursing Checklist: Lines/Cathetersremoved/a ppropriate for next level of care Discharge Med Rec Reconciled with Shannen Patient has Prescriptionsyes Transportation for Discharge Confirmedyes Discharge Instructions Reviewed WithPatient Discharge Instructions Outcomeverbalize recall/understanding Discharge Instructions Review Completed with Patient/Family (diet, activity, pt instructions)yes Discharge Documentation: Discharge/Transfer Date/[id number] 12:00 Discharged Accompanied Bysignificant other/partner Discharge Modeambulatory Transportation Methodprivate car Final DispositionHome Electronic Signatures: Pia Jeter (RN) (Signed 19-Feb-2021 12:28) Authored: Discharge Planning, Nursing Checklist, Discharge Documentation India Aguilar (RN) (Signed 17-Feb-2021 02:48) Authored: Discharge Planning, Assessment Last Updated: 19-Feb-2021 12:28 by Pia Jeter (RN) References: 1. Data Referenced From Triage Note - OB v4 17-Feb-2021 01:15 [facility] Order Reconciliationon 02-17 Order Reconciliation Page 1 Admission Reconciliation Document Reconciliation Type: Admission requested on behalf of Alexandre Connor (Physician) done by Alexandre Connor (DO) Admission - Reconciliation: 17-Feb-2021 03:31 by: Alexandre Connor (DO) Home MedicationsEnteredLast Dose TakenReconciled with current Order Reconciliation Comment/ Additional Information 1 oral capsule 1 tab(s) orally once a [id number] Reviewed and Held Additional Current Orders Acetaminophen Rectal Suppository (TYLENOL)DOSE = 650 mg Rectal Once, PRN Initial pain mgmt following deliveryClinician Notes: Administer in the OR. Carboprost IntraMuscular (HEMABATE)DOSE = 250 microgram(s) IntraMuscular Once, PRN post bleeding in non-asthmatic patientClinician Notes: Consult provider prior to administration. hydrALAZINE (APRESOLINE) Injectable DOSE = 5 mg IntraVenous Push Once, PRN Acute-onset, severe HTN w/out known, suspected CADClinician Notes: Consult provider prior to administration. Push over more than 2 minutes. Systolic greater than or equal to 160 OR Diastolic greater than or equal to 110. Contraindication: coronary artery disease (CAD); Caution in suspected CAD. Labetalol Injectable (TRANDATE)DOSE = 20 mg IntraVenous Push Once, PRN Acute-onset, sev HTN w/o active asthma/ kayla<60Clinician Notes: Consult provider prior to administration. Push over more than 2 minutes. Systolic greater than or equal to 160 OR Diastolic greater than or equal to 110. Contraindications: active asthma, heart disease, heart failure, maternal bradycardia < 60. Lactated Ringers Infusion IV Bag Volume = 1,000 mL Run at: 125 mL/hr IntraVenous Lactated Ringers Infusion IV Bag Volume = 1,000 mL Run at: 125 mL/hr IntraVenous Lactated Ringers IV Bolus DOSE = 500 mL Once, PRN resuscitationInfuse over 30 minute(s) Lactated Ringers IV Bolus DOSE = 500 mL Once, PRN If patient is given an EpiduralInfuse over 30 minute(s)Clinican Notes: Give 30 minutes prior to Epidural catheter placement Loperamide Capsule (IMODIUM)DOSE = 4 mg Oral Every 2 Hours, PRN If Carboprost given or loose stoolsClinician Notes: Max dose of 16mg / 24 hours Methylergonovine Injectable (METHERGINE)DOSE = 0.2 mg IntraMuscular Once, PRN PPH in pts w/o HTN or receiving ART for HIV mgmt.Clinician Notes: Consult provider prior to administration.Notes from Pharmacy: Reproductive Risk - Single Nitrile Glove miSOPROStol Rectal Tablet (Cytotec)DOSE = 800 microgram(s) Rectal Once, PRN post bleedingClinician Notes: Consult provider prior to administration.Notes from Pharmacy: Reproductive Risk - Single Nitrile Glove NIFEdipine (PROCARDIA) CapsuleDOSE = 10 mg Oral Once, PRN Acute-onset, severe HTN w/out IV access/ pref oralClinician Notes: Consult provider prior to administration. Systolic greater than or equal to 160 OR Diastolic greater than or equal to 110. Capsules administered orally and swallowed whole; Do not puncture or crush; Do not administer sublingually. Ondansetron Injectable (ZOFRAN)DOSE = 4 mg IntraVenous Push Once, PRN Nausea & Vomiting Oxytocin 30 units/ NaCL 0.9% 500 mL Bolus Solution (PITOCIN)IntraVenous ONE TIME Bolus = 600 milliunits/minAdmin Rate = 60 mL/hrStop After 1 DosesClinician Notes: 600 milliunits/min x 30 mins., then 60 milliunits/min for the remainder of the bag.Begin infusion at delivery of (s).Notes from Pharmacy: DOSE Rate = 60 milliunits/min = 60 mL/hr.Reproductive Risk - Single Nitrile Glove Oxytocin 30 units/ NaCL 0.9% 500 mL Bolus Solution (PITOCIN)IntraVenous ONE TIME Bolus = 600 milliunits/minAdmin Rate = 60 mL/hrStop After 1 DosesClinician Notes: Conditional order. 600 milliunits/min x 30 mins., then 60 milliunits/min for the remainder of the bag. For continued hemorrhage. Consult Provider prior to administration.Notes from Pharmacy: DOSE Rate = 60 milliunits/min = 60 mL/hr. Oxytocin Injectable (PITOCIN)DOSE = 10 unit(s) IntraMuscular OnceClinician Notes: Conditional order. Consult Provider prior to administration. Oxytocin Injectable (PITOCIN)DOSE = 10 unit(s) IntraMuscular Once, PRN Management-3rd Stage of labor if not given IVPBClinician Notes: Consult Provider prior to administration.Notes from Pharmacy: Reproductive Risk - Single Nitrile Glove Terbutaline Injectable (BRETHINE)DOSE = 0.25 mg SubCutaneous Once, PRN for Onset of Uterine Tetany Tranexamic Acid Injectable (CYKLOKAPRON)DOSE = 1,000 mg IntraVenous Push Once, PRN Post bleeding in all patientsClinician Notes: Consult provider prior to administration. [facility] FELIPE.RUPTURE OF MEMB.on 02-01 FELIPE.RUPTURE OF MEMB. Positive Abnormal Negative [facility] Comment on above: Order Comment: Smiley CORBIN to Judy Jewellr , 02/17/2021 01:20 Result Comment: Call ed- RB to Judy Tovar , 02/17/2021 01:20 Performed By: #### T +S #### [place] [id number] [place] [address] Patient Profile - OB v3on Patient Profile - OB v3 Profile: Initial Info: How to be AddressedEmily Spoken Language PreferredEnglish (1) Source of Informationpatient Reason for admission this visitexpected delivery Wants Family/Rep Notified of Admissionn/a; family present Notify PCPdo not notify PCP Informed of Patient Visiting Rightsyes Limitations on Visitors/Phone Callsnone Temporary Family Living Arrangements (While Hospitalized)none needed [facility] Patient Belongingsremains with patient Home Meds have been Reviewed and Verified with Patient/Familyyes Medications Brought to Hospitalno Info: Gravida1 Term Deliveries0 Deliveries0 Abortions0 Living Children0 Patient stated [id number] Calculation of EGA based on patient stated EDD39.5 Records availableyes Trimester Care Initiatedfirst Care ProviderAllman Current Risksnone Testsultrasound Previous live (any gestational age)no Planyes Baby's Post Discharge Care Provider (Provider Name, Address and Phone Number) MEDICAL LABORATORY TECHNICIAN Feedingbreastmilk Benefits of Breast Milk DiscussionThe benefits of exclusive breast milk feeding and the risk of adding formula have been discussed with patient / mother. Discussion Date / [id number] 03:50 General Health: Current Weight in kg112.6 kilogram(s) Current Weight in jrj556.2 pound(s) Weight Methodstated Pre Weight (lb)175 pound(s) Total Weight Gain (lb)73 pound(s) Height in feet5 feet Height in inches4 inch(es) Height in cm162.5 centimeter(s) Height Methodstated BMI (kg/m2)42.641 square meter Patient or Family Member Reaction to Anesthesiano previous reaction; no previous family member reaction Blood Avoidance/Restrictionsno ne Previous Transfusion Reactionno Rsp Based Care: How would you like to participate in your carekeep What is the number one concern for you during this hospitalizationinvolved What is the most important thing we can do to support you during this hospitalizationin POC Is there anything we need to know to best care for youno Substance: Smoking Statusnever smoker Alcohol Usedenies Drug Usedenies Drug 2 Usedenies Health Mgmt: Symptoms/Conditions Managed at Homenone Barriers to Managing Healthnone Relationship/Environ: Primary Source of Support/Comfortparent; significant other Lives Withsignificant other Living Arrangementshouse Significant Exposurenone Resource/Environmental Concernsnone [facility] Anticipated at Transitionnone Additional Information: Information Review: Allergies and Significant Events have been Reviewed and Verified with Patient/Familyyes Allergy, Intolerance, Adverse Event: Allergies: penicillin: Drug, Rash, Active Electronic Signatures: Stacey Goddard (RN) (Signed 17-Feb-2021 03:53) Authored: Initial Info, Info, General Health, Rsp Based Care, Substance, Health Mgmt, Relationship/Environ, Additional Information Last Updated: 17-Feb-2021 03:53 by Stacey Goddard (RN) References: 1. Data Referenced From Triage Note - OB v4 17-Feb-2021 01:15 [facility] REQUEST-LEUKOREDUCED RED TOBY LSon 02-17-2021 REQUEST-LEUKOREDUCED RED CELLS ORDER RECD [facility] Comment on above: Performed By: #### T +S #### [place] [address] REQUEST-LEUKOREDUCED RED CELLS ORDER RECD [facility] Comment on above: Performed By: #### T +S #### [place] [id number] Risk Screen - OB Triageon Risk Screen - OB Triage Allergies: Allergies: Allergies: No Known Allergies: Patient Verification: Patient Verification: New W ID Band Applied in my Departmentyes Patient Identity Verified Bypatient ID Band FULL Name, include Middle, spelling matches patient's ID used for verificationyes ID Band Matches Patient ID used for Verficationyes ID Band MRN Matches EMR MRNyes Travel History: Travel History: COVID-19 Screening Completedno exposure or symptoms Travel or Exposure Past 30 DaysNO travel to International locations in the past 30 days Advance Directives: Advance Directive: Advance Directive/DNRno Advance Directive Information Givenpatient/family declined Falls Risk: Odell Fall Screen: History of falling (immediate or previous)no (0) Secondary Diagnosisno (0) Intravenous Therapy/ Heparin/Saline Lockno (0) Gait/Transferringnormal/ bedrest/wheelchair (0) Ambulatory Aidsnone/bedrest/nurse assist (0) Mental Statusoriented to own ability (0) Score: Low risk (<25). Moderate risk (25-44). High risk (>44).0 Odell InterventionsLOW INTERVENTIONS: *patient oriented to surroundings and call system, * patient/family falls education completed and documented, *patients fall status communicated during bedside handoff, *whiteboard updated, *mode of toileting discussed with patient, *bed in low position with brakes locked, *call light in reach, * non-skid footwear Learning Assessment (Patient): Learning Assessment (Patient): Patient is Able to be Assessed for Learningyes Factors Influencing Readiness to Learnanxiety Factors that Impact Ability to Learnacuteness of illness Devices/Methods Used to Communicatecommunication board Learning Preferencesaudio Cultural Considerationsnone Developmental Considerationsnone Uatsdin Considerationsnone Learning Assessment (Other Learner): Other learner availableno Depression/Suicide: Depression Screen: During the past month, have you often been bothered by feeling down, depressed or hopelessno During the past month, have you often had little interest or pleasure in doing thingsno Have you had any thoughts of harming anyone elseno Kinney Suicide: Risk Screen Not Applicable/Able to Answerable to be screened In the Past Month: Have you wished you were or could go to sleep and not wake upno In the Past Month: Have you had any actual thoughts of killing yourselfno Lifetime: Have you ever done, started to do, or prepared to do anything to end your lifeno Kinney Suicide Risknegative Family Violence: Abuse Screen: Are you or have you been threatened or abused physically, emotionally, or sexually by anyoneno Has anyone ever threatened to hurt your family or your petsno Does anyone try to keep you from having/contacting other friends or doing things outside your homeno Do you feel UNSAFE going back to the place where you are livingno Do you feel anyone has exploited or taken advantage of you financially or of your personal propertyno Clinical assessment: Are there any apparent signs of injuries/behaviors that could be related to abuse/neglectno Electronic Signatures: Lety Tovar (RN) (Signed 17-Feb-2021 01:15) Authored: Allergies, Patient Verification, Travel History, Advance Directives, [place] Fall Screen, Learning Assessment (Patient), Learning Assessment (Other Learner), Depression/Suicide, Family Violence Last Updated: 17-Feb-2021 01:15 by Lety Tovar (RN) [facility] SYPHILIS SCREENING WITH REFL EXon 02-17-2021 SYPHILIS TOTAL AB Non-Reactive Normal NONREACTIVE [facility] Comment on above: Result Comment: No s ignificant level of Treponema pallidum antibody detected. Repeat testing in 2 to 4 weeks may be considered if early infection or incubating syphilis infection is suspected. Performed By: #### T +S #### [place] [address] Lab Specimen Source [facility] Comment on above: Performed By: #### T +S #### [place] [address] TYPE + SCREENon 02-17-2021 ABO TYPE O [facility] Comment on above: Performed By: #### T +S #### [place] [address] RH TYPE Positive [facility] Comment on above: Performed By: #### T +S #### [place] [address] Triage Note - OB v4on 2020 Triage Note - OB v4 Triage: General Info: Time of Arrival on [id number] 00:50 Patient arrived viaambulatory Arrived Fromsharon Acuity Level2 Time Acuity Level [id number]-[id number] 00:51 Modified Acuity Level3 Time Modified Acuity Level [id number]-[id number]-2913 00:55 Chief ComplaintPer pt, I was home and I think my water broke. I felt this huge gush of fluid. Pt states, I think my water broke around 1230p. Pt is 39 weeks and is a pt of dr. hernandez Spoken Language PreferredEnglish Source of Informationpatient Weight in kg112.6 kilogram(s) Weight in lir514.2 pound(s) Weight Methodstated Height in feet5 feet Height in inches5 inch(es) Height in cm165.1 centimeter(s) Height Methodstated BMI (kg/m2)41.308 square meter Blood Avoidance/Restrictionsno ne Previous Transfusion Reactionno Patient Belongingsnone Home Meds have been Reviewed and Verified with Patient/Familyyes Info: Gravida0 Term Deliveries0 Deliveries0 Abortions0 Living Children0 Patient stated [id number] Calculation of EGA based on patient stated EDD38.6 Records availableyes Trimester Care Initiatedfirst Care ProviderDr. Hernandez Current Risksobesity Previous live (any gestational age)no Substance: Smoking Statusnever smoker Alcohol Usedenies Drug Usedenies Drug 2 Usedenies Disposition/Disch: Dispositionadmitted to Labor and Delivery Patient Meets Criteria for Home Blood Pressure Monitorno Travel History: Travel or ExposureNO travel to International locations in the past 30 days Additional Information: Information Review: Allergies have been Reviewed and Verified with Patient/Familyyes Allergy, Intolerance, Adverse Event: Allergies: No Known Allergies: Active Electronic Signatures: Lety Tovar (BASSAM) (Signed 17-Feb-2021 01:17) Authored: General Info, Additional Information India Aguilar (BASSAM) (Signed 17-Feb-2021 03:33) Authored: General Info, Info, Substance, Disposition/Disch, Travel History, Additional Information Last Updated: 17-Feb-2021 03:33 by India Aguilar (RN) [facility] No Panel Informationon 02-[address] [employer] [facility] Work Phone: US AGE FOL-UP PER FETU Son 02-06-2021 US AGE FOL-UP PER FETUS Patient Name: REENA JAMA STUDY: US AGE FOL-UP PER FETUS 02/06/2021 2:27 pm INDICATION: CHECKING GROWTH EDC: 02/19/21. COMPARISON: 12/24/2020 ACCESSION NUMBER(S): [id number] ORDERING CLINICIAN: BEHZAD HERNANDEZ TECHNIQUE: Routine ultrasound of the pelvis was performed. Evaluation of the female pelvis was performed by transabdominal. FINDINGS: There is a single live intrauterine gestation in vertex position. BPD 96mm, 39 weeks, 1 days HC 340mm, 39 weeks, 1 days AC 351mm, 39 weeks, 0 days FL 75mm, 30 weeks, 2 days This results in a composite gestational age of 38 weeks, 6 days, + / -19 days. The estimated date of delivery by ultrasound is 02/14/2021. By dates the fetus should be 38 weeks, 1 day, which is concordant with the ultrasound dating. There is an estimated weight of 3628 g + / -544 g (81st percentile). heart rate measures 142 beats per minute. Evaluation of anatomy is limited as the study was done for the evaluation of growth. The placenta is in posterior position. No evidence of placental previa is seen. The amniotic fluid volume is within normal limits, with the amniotic fluid index measuring at up to 17.1 cm. Maternal anatomy: The cervix is not well visualized. IMPRESSION: Single live intrauterine gestation corresponding to 38 weeks, 6 days, + / -19 days. Evaluation of anatomy was not performed. Recommend continued routine follow-up imaging evaluation. Electronically signed by: MADELYN SHAFFER MD [facility] GROUP B STREP SCREENon 01-22 GROUP B STREP SCREEN PATIENT: EDWIN JAMA LOCATION: [facility]#: [id number] : 89 AGE: SEX: F ORDERED BY: BEHZAD HERNANDEZ SOURCE: VAGINAL COLLECTED: 01/22/21 14:52 ANTIBIOTICS AT HANY.: RECEIVED : 01/22/21 22:31 SITE: CERVIX R E S U L T S GROUP B STREP SCREEN FINAL 01/24/21 12:35 NEGATIVE FOR GROUP B BETA STREP. [facility] Comment on above: Performed By: #### G BSCR ####[id number] [place] [address] Laboratory - Microbiology an d Antimicrobial susceptibilityon 01-22-2021 Bacteria identified Aer cx Nom (Genital specimen) [facility] [employer] Work Phone: No Panel Informationon 12-24 Normal [facility] RoomActually Work Phone: US AGE FOL-UP PER FETU Son 12-24-2020 US AGE FOL-UP PER FETUS Patient Name: REENA JAMA STUDY: US AGE FOL-UP PER FETUS; 12/24/2020 10:10 am INDICATION: CHECKING GROWTH EDC: 02/19/21. COMPARISON: None. ACCESSION NUMBER(S): [id number] ORDERING CLINICIAN: BEHZAD HERNANDEZ TECHNIQUE: Multiple images were obtained. Transabdominal ultrasound was performed. FINDINGS: There is a single live intrauterine gestation in cephalic position. BPD 7.9 cm, 31 weeks 6 days HC 29.2 cm, 32 weeks 1 day AC 28.7 cm, 32 weeks 5 days FL 6.1 cm, 31 weeks 6 days This results in a composite gestational age of 32 weeks 1 day + / -2 weeks 2 days. The estimated date of delivery by ultrasound is 02/17/2021. By dates the LMP is 02/19/2021 heart rate measures 139. Evaluation of anatomy was not performed. The placenta location is posterior. The amniotic fluid index is 22.9 cm. Estimated weight 1956 g + / -293 g. 55.2% Maternal anatomy: Cervical length could not be measured. IMPRESSION: Single live intrauterine gestation corresponding to 32 weeks 1 day + / -2 weeks 2 days Evaluation of anatomy was not performed. Electronically signed by: MADAN EMMANUEL MD [facility] Panel Informationon 11-[address] Work Phone: US AGE FOL-UP PER FETU Son 11-15-2020 US AGE FOL-UP PER FETUS Patient Name: REENA JAMA STUDY: US AGE FOL-UP PER FETUS; 11/15/2020 2:45 pm INDICATION: check spine and placenta. COMPARISON: None. ACCESSION NUMBER(S): [id number] ORDERING CLINICIAN: BEHZAD HERNANDEZ TECHNIQUE: Multiple images were obtained. Transabdominal ultrasound was performed. FINDINGS: There is a single live intrauterine gestation in cephalic position. BPD 7 cm, 28 weeks 1 day HC 26 cm, 28 weeks days AC 22.6 cm, 27 weeks FL 5 cm, 27 weeks 1 day This results in a composite gestational age of 27 weeks 5 days + / -2 weeks. The estimated date of delivery by ultrasound is 02/09/2021. By dates the JUDD is 02/19/2021. heart rate measures 148. The spine was evaluated and shows no abnormality.. The placenta location is posterior. The amniotic fluid index is 20.4 cm. Estimated weight 1047 g + / -157 g. 78.2%. Maternal anatomy: The cervical length is 4.5 cm. IMPRESSION: Single live intrauterine gestation corresponding to 27 weeks 5 days + / -2 weeks. Evaluation of spine was performed and no abnormality is visualized. Electronically signed by: MADAN EMMANUEL MD [facility] CBCon 11-13-2020 Erythrocyte distribution width (RBC) [Ratio] 14.5 % Normal 11.5 - 14.5 [facility] Comment on above: Performed By: #### C BC ####[place] [id number] Hematocrit (Bld) [Volume fraction] 33.7 % Low 36.0 - 46.0 [facility] Comment on above: Performed By: #### C BC ####[address] [address] Hemoglobin (Bld) [Mass/Vol] 11.1 g/dL Low 12.0 - 16.0 [facility] Comment on above: Performed By: #### C BC ####[address] [address] MCHC (RBC) [Mass/Vol] 33.0 g/dL Normal 32.0 - 36.0 [facility] Comment on above: Performed By: #### C BC ####[address] [address] MCV (RBC) [Entitic vol] 85 fL Normal 80 - 100 [facility] Comment on above: Performed By: #### C BC ####[address] [address] Platelets (Bld) [#/Vol] 180 10*3/uL Normal 150 - 450 [facility] Comment on above: Performed By: #### C BC ####[address] [address] RBC 3.97 x10E12/L Low 4.00 - 5.20 [facility] Comment on above: Performed By: #### C BC ####[address] [address] WBC (Bld) [#/Vol] 12.8 10*3/uL High 4.4 - 11.3 [facility] Comment on above: Performed By: #### C BC ####[address] [address] GLUCOSE,1 HR SCREEN, PREGon 11-13-2020 Glucose [Mass/Vol] 122 mg/dL Normal <135 [facility] Comment on above: Result Comment: Diag nostic value with glucose loading dose of 50 g. Reference values from [place] [employer]. Diabetes Care 2015;38(Suppl.1):S8-S16 Performed By: #### G LUS1 #### [address] [address] GLUCOSE-POCTon 11-13-2020 Glucose [Mass/Vol] 77 mg/dL Normal 74 - 99 [facility] Comment on above: Performed By: #### T +S #### [address] [address] Glucose, 1 Hour Screen, Preg nancyon 11-13-2020 Glucose 1 Hr post 50 g glucose PO [Mass/Vol] 122 mg/dL <135 [facility] [employer] Work Phone: Comment on above: Diagnostic value wit h glucose loading dose of 50 g. Reference values from [place] [employer]. Diabetes Care 2015;38(Suppl.1):S8-S16 Laboratory - Chemistry and C hemistry - challengeon 11-13-2020 Glucose [Mass/Vol] 77 mg/dL 74 - 99 [facility] [employer] Work Phone: Laboratory - Hematology and Cell countson 11-13-2020 Erythrocyte distribution width (RBC) [Ratio] 14.5 % See Below [facility] [employer] Work Phone: Comment on above: Reference Range: 11. 5 - 14.5 Hematocrit (Bld) [Volume fraction] 33.7 % below low threshold See Below [facility] [employer] Work Phone: Comment on above: Reference Range: 36. 0 - 46.0 Hemoglobin (Bld) [Mass/Vol] 11.1 g/dL below low threshold See Below [employer] Work Phone: Comment on above: Reference Range: 12. 0 - 16.0 MCHC (RBC) [Mass/Vol] 33.0 g/dL See Below [facility] [employer] Work Phone: Comment on above: Reference Range: 32. 0 - 36.0 MCV (RBC) [Entitic vol] 85 fL 80 - 100 [employer] Work Phone: Platelets (Bld) [#/Vol] 180 10*3/uL 150 - 450 [employer] Work Phone: RBC (Bld) [#/Vol] 3.97 {x10E12/L} below low threshold See Below [employer] Work Phone: Comment on above: Reference Range: 4.0 0 - 5.20 WBC (Bld) [#/Vol] 12.8 10*3/uL above high threshold 4.4 - 11.3 [employer] Work Phone: OB COMPLETEon 10-05-2020 OB COMPLETE Patient Name: REENA JAMA STUDY: US OB COMPLETE; 10/05/2020 2:21 pm INDICATION: DATES & ANATOMY EDC: 02/19/21. LMP 05/15/2020 COMPARISON: None. ACCESSION NUMBER(S): [id number] ORDERING CLINICIAN: BEHZAD HERNANDEZ TECHNIQUE: Multiple images were obtained. Transabdominal ultrasound was performed. FINDINGS: There is a single live intrauterine gestation in variable position. BPD 5.1cm, 21 weeks, 3 days HC 18.5cm, 20 weeks, 6 days AC 15.7cm, 20 weeks, 6 days FL 3.3cm, 20 weeks, 2 days This results in a composite gestational age of 20 weeks, 6 days, + / -10 days. The estimated date of delivery by ultrasound is 02/16/2021. The patient's LMP was 05/15/2020, clinical JUDD 02/19/2021, therefore by dates the fetus should be 20 weeks 3 days. EFW: 368 grams, 58.3 %ile heart rate measures 163 beats per minute. Evaluation of anatomy: Head (choroids, lateral ventricles, CSP, cerebellum, cisterna magna): Within normal limits. Face (nose and lips, profile if able): Within normal limits. Spine: No anomalies are evident, however the spine is suboptimally visualized due to position. Heart (4 chamber view, situs): Within normal limits. Outflow tracts are not assessed. Diaphragm: Within normal limits Stomach: Within normal limits. Cord insertion: Within normal limits. 3 Vessel cord: Within normal limits. Kidneys: Within normal limits. Bladder: Within normal limits. Extremities: Within normal limits. The placenta location is posterior, possible small succenturiate lobe anterior fundal region (such as on image number 8, also see image 14 and 18-20), no previa. The amniotic fluid volume is subjectively normal. Maternal anatomy: Cervix is post closed, 4.3 cm. IMPRESSION: Single live intrauterine gestation measuring 20 weeks 6 days + / -10 days, concordant with clinical dates which predict 20 weeks 3 days. Fetus in variable position. Evaluation of anatomy reveals no anomalies, however the spine is suboptimally visualized due to position. Limited follow-up recommended. Placenta is predominantly posteriorly located however there is a probable smaller anterior fundal succenturiate lobe noted. No previa. Electronically signed by: RAYMOND HAINES MD [facility] CBC ANEMIA PANEL WITH REFLEX ,PREGNANCYon 08-13-2020 Erythrocyte distribution width (RBC) [Ratio] 14.3 % Normal 11.5 - 14.5 [facility] Comment on above: Performed By: #### A NEMI #### [address] [address] Hematocrit (Bld) [Volume fraction] 39.2 % Normal 36.0 - 46.0 [facility] Comment on above: Performed By: #### A NEMI #### [address] [address] Hemoglobin (Bld) [Mass/Vol] 12.8 g/dL Normal 12.0 - 16.0 [facility] Comment on above: Performed By: #### A NEMI #### [place] [id number] MCHC (RBC) [Mass/Vol] 32.6 g/dL Normal 32.0 - 36.0 [facility] Comment on above: Performed By: #### A NEMI #### [place] [id number] MCV (RBC) [Entitic vol] 87 fL Normal 80 - 100 [facility] Comment on above: Performed By: #### A NEMI #### [place] [id number] Platelets (Bld) [#/Vol] 176 10*3/uL Normal 150 - 450 [facility] Comment on above: Performed By: #### A NEMI #### [place] [id number] RBC 4.53 x10E12/L Normal 4.00 - 5.20 [facility] Comment on above: Performed By: #### A NEMI #### [place] [id number] REFLEX ADDED, ANEMIA PANEL NONE [facility] Comment on above: Performed By: #### A NEMI #### [place] [id number] WBC (Bld) [#/Vol] 10.9 10*3/uL Normal 4.4 - 11.3 [facility] Comment on above: Performed By: #### A NEMI #### [place] [id number] HEPATITIS B SURFACE AGon HEP.B SURFACE AG Non-Reactive Normal NONREACTIVE [facility] Comment on above: Result Comment: Biot in interference may cause falsely decreased results. Patients taking a Biotin dose of up to 5 mg/day should refrain from taking Biotin for 24 hours before sample collection. Providers may contact their local laboratory for further information. Performed By: #### H BSAG ####[id number] [place] [address] HEPATITIS C ABon 08-13-2020 HEPATITIS C AB Non-Reactive Normal NONREACTIVE [facility] Comment on above: Result Comment: Resu lts from patients taking biotin supplements or receiving high-dose biotin therapy should be interpreted with caution due to possible interference with this test. Providers may contact their local laboratory for further information. Performed By: #### T +S #### [place] [id number] HIV 1/2 ANTIGEN/ANTIBODY SCR EEN WITH REFLEX TO CONFIRMATIONon 08-13-2020 HIV 1/2 AG/AB SCREEN Non-Reactive Normal NONREACTIVE [facility] Comment on above: Result Comment: HIV Ag/Ab screen is performed using the Siemens Tokutek HIV Ag/Ab Combo assay which detects the presence of HIV p24 antigen as well as antibodies to HIV-1 (Group M and O) and HIV-2. . No laboratory evidence of HIV infection. If acute HIV infection is suspected, consider testing for HIV RNA by PCR (viral load). Performed By: #### H IV #### [facility] [address] [place] [id number] Lab Specimen Source [facility] Comment on above: Performed By: #### H IV #### [facility] [address] [place] [id number] Performed By: #### R UBIG ####[id number] [place] [address] Performed By: #### S YPHR ####[id number] [place] [address] Performed By: #### H BSAG ####[id number] [place] [address] Performed By: #### T +S #### [address] [address] RUBELLA IGG ABon 08-13-2020 RUBELLA IGG AB Positive [facility] Comment on above: Result Comment: INTE RPRETATIVE COMMENT NEGATIVE: No IgG antibodies specific to Rubella detected. It is likely that the patient has not had a previous exposure to Rubella through infection or vaccination. Alternatively, the patient may have been exposed to Rubella but a failure to respond may indicate immunodeficiency. EQUIVOCAL:Equivocal results; obtain additional sample for retesting. POSITIVE: IgG antibody to Rubella detected. This may indicate that the patient was exposed to Rubella through infection or vaccination. The interpretation of serological tests should take into account the immunological status of the patient. Test results for patients, including immunocompromised patients, neonates, and pediatric patients, reflect their capacity to respond immunologically to the virus as well as their exposure to the pathogen. Patients treated with IVIG may demonstrate altered results in serological assays. Performed By: #### R UBIG ####[id number] [place] [address] SYPHILIS SCREENING WITH REFL EXon 08-13-2020 SYPHILIS TOTAL AB Non-Reactive Normal NONREACTIVE [facility] Comment on above: Result Comment: No s ignificant level of Treponema pallidum antibody detected. Repeat testing in 2 to 4 weeks may be considered if early infection or incubating syphilis infection is suspected. Performed By: #### S YPHR ####[id number] [place] [address] TYPE + SCREENon 08-13-2020 ABO TYPE O [facility] Comment on above: Performed By: #### T +S #### [address] [address] RH TYPE Positive [facility] Comment on above: Performed By: #### T +S #### [address] [address] GC + CHLAMYDIA BY AMPLIFIED DETECTIONon 08-11-2020 CHLAMYDIA TRACH.,AMPLIFIED Negative Normal Negative [facility] Comment on above: Performed By: #### G CCHA #### [facility] [address] [place] [address] N.GONORRHEA,AMPLIFIED Negative Normal Negative [facility] Comment on above: Performed By: #### G CCHA #### [facility] [id number] [place] [address] GC + CHLAMYDIA BY AMPLIFIED DETECTIONon 08-10-2020 Lab Specimen Source Urine Normal [facility] Comment on above: Performed By: #### G CCHA #### [facility] [address] [place] [address] URINE CULTURE,BACTERIALon URINE CULTURE,BACTERIAL PATIENT: REENA JAMA LOCATION: [facility]#: [id number] : 89 AGE: SEX: F ORDERED BY: BEHZAD HERNANDEZ SOURCE: URINE COLLECTED: 08/10/20 14:17 ANTIBIOTICS AT HANY.: RECEIVED : 08/11/20 00:56 SITE: Clean Catch/Voided R E S U L T S URINE CULTURE,BACTERIAL FINAL 08/11/20 17:57 NO SIGNIFICANT GROWTH. [facility] Comment on above: Performed By: #### U [facility] ####[id number] [place] [address] Vital Signs Date Time Vital Sign Value Performing Clinician Faci lity 10-26-2024 10:16-0400 Body mass index (BMI) [Ratio] 39.96 kg/m2 Alexandra Mullins MD Work Phone: [facility] 10-26-2024 10:16-0400 Body weight 112.31 kg Alexandra Mullins MD Work Phone: [facility] 10-26-2024 10:16-0400 Diastolic blood pressure 74 mm[Hg] Alexandra Mullins MD Work Phone: [facility] 10-26-2024 10:16-0400 Systolic blood pressure 122 mm[Hg] Alexandra Mullins MD Work Phone: [facility] 10-19-2024 10:38-0400 Body mass index (BMI) [Ratio] 39.22 kg/m2 Nicole Keller APRN.CNM Work Phone: [facility] 10-19-2024 10:38-0400 Body weight 110.22 kg Nicole Keller APRN.CNM Work Phone: [facility] 10-19-2024 10:38-0400 Diastolic blood pressure 84 mm[Hg] Nicole Keller APRN.CNM Work Phone: [facility] 10-19-2024 10:38-0400 Systolic blood pressure 126 mm[Hg] Nicole Plotts ESTHETIC DERMATOLOGIST.CNM Work Phone: [facility] 10-12-2024 15:55-0400 Body mass index (BMI) [Ratio] 39.71 kg/m2 Rachel Mcintosh MD Work Phone: [facility] 10-12-2024 15:55-0400 Body weight 111.58 kg Rachel Mcintosh MD Work Phone: [facility] 10-12-2024 15:55-0400 Diastolic blood pressure 84 mm[Hg] Rachel Mcintosh MD Work Phone: [facility] 10-12-2024 15:55-0400 Systolic blood pressure 122 mm[Hg] Rachel Mcintosh MD Work Phone: [facility] 10-05-2024 14:05-0400 Body mass index (BMI) [Ratio] 38.7 kg/m2 Nicole Plotts ESTHETIC DERMATOLOGIST.CNM Work Phone: [facility] 10-05-2024 14:05-0400 Body weight 108.77 kg Nicole Plotts ESTHETIC DERMATOLOGIST.CNM Work Phone: [facility] 10-05-2024 14:05-0400 Diastolic blood pressure 76 mm[Hg] Nicole Plotts ESTHETIC DERMATOLOGIST.CNM Work Phone: [facility] 10-05-2024 14:05-0400 Systolic blood pressure 120 mm[Hg] Nicole Plotts ESTHETIC DERMATOLOGIST.CNM Work Phone: [facility] 09-07-2024 15:08-0400 Body mass index (BMI) [Ratio] 38.09 kg/m2 Alexandra Mullins MD Work Phone: [facility] 09-07-2024 15:08-0400 Body weight 107.05 kg Alexandra Mullins MD Work Phone: [facility] 09-07-2024 15:08-0400 Diastolic blood pressure 62 mm[Hg] Alexandra Mullins MD Work Phone: [facility] 09-07-2024 15:08-0400 Systolic blood pressure 108 mm[Hg] Alexandra Mullins MD Work Phone: [facility] 08-15-2024 17:13-0400 Body height 165.1 cm No Primary Care Physician [facility] 08-15-2024 17:13-0400 Body mass index (BMI) [Ratio] 38.9 kg/m2 No Primary Care Physician [facility] 08-15-2024 17:13-0400 Body weight 106.19 kg No Primary Care Physician [facility] 08-15-2024 17:08-0400 SaO2% (BldA) [Mass fraction] 98 % No Primary Care Physician [facility] 08-15-2024 17:06-0400 Body temperature 97.6 [degF] No Primary Care Physician [facility] 08-15-2024 17:06-0400 Diastolic blood pressure 67 mm[Hg] No Primary Care Physician [facility] 08-15-2024 17:06-0400 Heart rate 88 /min No Primary Care Physician [facility] 08-15-2024 17:06-0400 Respiratory rate 18 /min No Primary Care Physician [facility] 08-15-2024 17:06-0400 Systolic blood pressure 117 mm[Hg] No Primary Care Physician [facility] 08-10-2024 11:20-0400 Body mass index (BMI) [Ratio] 37.61 kg/m2 Vandana Smith APRN.CNM Work Phone: [facility] 08-10-2024 11:20-0400 Body weight 105.69 kg Vandana Smith APRN.CNYuridia Work Phone: [facility] 08-10-2024 11:20-0400 Diastolic blood pressure 64 mm[Hg] Vandana Smith APRN.CNM Work Phone: [facility] 08-10-2024 11:20-0400 Systolic blood pressure 110 mm[Hg] Vandana Smith APRN.CNM Work Phone: [facility] 07-15-2024 16:07-0400 Body mass index (BMI) [Ratio] 36.8 kg/m2 Alexandra Mullins MD Work Phone: [facility] 07-15-2024 16:07-0400 Body weight 103.42 kg Alexandra Mullins MD Work Phone: [facility] 07-15-2024 16:07-0400 Diastolic blood pressure 70 mm[Hg] Alexandra Mullins MD Work Phone: [facility] [facility] 16:07-0400 Systolic blood pressure 120 mm[Hg] Alexandra Mullins MD Work Phone: [facility] 06-14-2024 16:08-0500 Body mass index (BMI) [Ratio] 35.67 kg/m2 Rachel Mcintosh MD Work Phone: [facility] 06-14-2024 16:08-0500 Body weight 100.25 kg Rachel Mcintosh MD Work Phone: [facility] 06-14-2024 16:08-0500 Diastolic blood pressure 72 mm[Hg] Rachel Mcintosh MD Work Phone: [facility] 06-14-2024 16:08-0500 Systolic blood pressure 110 mm[Hg] Rachel Mcintosh MD Work Phone: [facility] 05-17-2024 15:44-0500 Body mass index (BMI) [Ratio] 35.25 kg/m2 Mekhi Wen MD Work Phone: [facility] 05-17-2024 15:44-0500 Body weight 99.07 kg Mekhi Wen MD Work Phone: [facility] 05-17-2024 15:44-0500 Diastolic blood pressure 70 mm[Hg] Mekhi Wen MD Work Phone: [facility] 05-17-2024 15:44-0500 Systolic blood pressure 118 mm[Hg] Mekhi Wen MD Work Phone: [facility] 04-19-2024 14:23-0500 Body mass index (BMI) [Ratio] 34.99 kg/m2 Mekhi Wen MD Work Phone: [facility] 04-19-2024 14:23-0500 Body weight 98.34 kg Mekhi Wen MD Work Phone: [facility] 04-19-2024 14:23-0500 Diastolic blood pressure 80 mm[Hg] Mekhi Wen MD Work Phone: [facility] 04-19-2024 14:23-0500 Systolic blood pressure 120 mm[Hg] Mekhi Wen MD Work Phone: [facility] 03-21-2024 11:03-0500 Body height 167.6 cm Reena Haury ESTHETIC DERMATOLOGIST.DEMOLITION SPECIALIST Work Phone: [facility] 03-21-2024 11:03-0500 Body mass index (BMI) [Ratio] 34.22 kg/m2 Reena Haury ESTHETIC DERMATOLOGIST.DEMOLITION SPECIALIST Work Phone: [facility] 03-21-2024 11:03-0500 Body weight 96.16 kg Reena Haury ESTHETIC DERMATOLOGIST.DEMOLITION SPECIALIST Work Phone: [facility] 03-21-2024 11:03-0500 Diastolic blood pressure 70 mm[Hg] Reena Haury ESTHETIC DERMATOLOGIST.DEMOLITION SPECIALIST Work Phone: [facility] 03-21-2024 11:03-0500 Systolic blood pressure 118 mm[Hg] Reena Haury ESTHETIC DERMATOLOGIST.DEMOLITION SPECIALIST Work Phone: [facility] 04-24-2022 15:48-0500 Body height 162.56 cm No PCP None [facility] [address] Work Phone: 04-24-2022 15:48-0500 Body mass index (BMI) [Ratio] 31.86 kg/m2 No PCP None [facility] [address] Work Phone: 04-24-2022 15:48-0500 Body surface area Derived from formula 1.89 m2 No PCP None [facility] [address] Work Phone: 04-24-2022 15:48-0500 Body weight 84.2 kg No PCP None [facility] [address] Work Phone: 04-24-2022 15:48-0500 Diastolic blood pressure 72 mm[Hg] No PCP None [facility] [place] Work Phone: 04-24-2022 15:48-0500 Systolic blood pressure 116 mm[Hg] No PCP None [facility] [place] Work Phone: 04-03-2021 15:40-0500 Body height 162.56 cm No PCP None [facility] [address] Work Phone: 04-03-2021 15:40-0500 Body mass index (BMI) [Ratio] 38.33 kg/m2 No PCP None [facility] [place] Work Phone: 04-03-2021 15:40-0500 Body surface area Derived from formula 2.05 m2 No PCP None [facility] [place] Work Phone: 04-03-2021 15:40-0500 Body temperature 97.5 [degF] No PCP None [facility] [place] Work Phone: 04-03-2021 15:40-0500 Body weight 101.3 kg No PCP None [facility] [place] Work Phone: 04-03-2021 15:40-0500 Diastolic blood pressure 82 mm[Hg] No PCP [facility] [place] Work Phone: 04-03-2021 15:40-0500 Systolic blood pressure 122 mm[Hg] No PCP None [facility] [place] Work Phone: 02-19-2021 13:45-0400 Body temperature 97.7 [degF] No Pcp Required [facility] 02-19-2021 13:45-0400 Diastolic blood pressure 68 mm[Hg] No Pcp Required [facility] 02-19-2021 13:45-0400 Heart rate 93 /min No Pcp Required [facility] 02-19-2021 13:45-0400 Respiratory rate 16 /min No Pcp Required [facility] 02-19-2021 13:45-0400 SaO2% (BldA) [Mass fraction] 98 % No Pcp Required [facility] 02-19-2021 13:45-0400 Systolic blood pressure 130 mm[Hg] No Pcp Required [facility] 02-13-2021 14:21-0400 Body height 162.56 cm No PCP None [facility] [address] Work Phone: 02-13-2021 14:21-0400 Body mass index (BMI) [Ratio] 42.69 kg/m2 No PCP None [facility] [address] Work Phone: 02-13-2021 14:21-0400 Body surface area Derived from formula 2.15 m2 No PCP None [facility] [address] Work Phone: 02-13-2021 14:21-0400 Body temperature 98 [degF] No PCP None [facility] [address] Work Phone: 02-13-2021 14:21-0400 Body weight 112.8 kg No PCP None [facility] [address] Work Phone: 02-13-2021 14:21-0400 Diastolic blood pressure 68 mm[Hg] No PCP None [facility] [address] Work Phone: 02-13-2021 14:21-0400 Systolic blood pressure 114 mm[Hg] No PCP None [facility] [address] Work Phone: 02-06-2021 14:23-0400 Body height 162.56 cm No PCP None [facility] [address] Work Phone: 02-06-2021 14:23-0400 Body mass index (BMI) [Ratio] 42.08 kg/m2 No PCP None [facility] [address] Work Phone: 02-06-2021 14:23-0400 Body surface area Derived from formula 2.13 m2 No PCP None [facility] [address] Work Phone: 02-06-2021 14:23-0400 Body temperature 97.7 [degF] No PCP None [facility] [address] Work Phone: 02-06-2021 14:23-0400 Body weight 111.2 kg No PCP None [facility] [address] Work Phone: 02-06-2021 14:23-0400 Diastolic blood pressure 68 mm[Hg] No PCP None [facility] [address] Work Phone: 02-06-2021 14:23-0400 Systolic blood pressure 120 mm[Hg] No PCP None [facility] [address] Work Phone: 01-29-2021 15:41-0400 Body height 162.56 cm No [facility] [address] Work Phone: 01-29-2021 15:41-0400 Body mass index (BMI) [Ratio] 41.89 kg/m2 No PCP None [facility] [address] Work Phone: 01-29-2021 15:41-0400 Body surface area Derived from formula 2.13 m2 No PCP None [facility] [address] [place] Work Phone: 01-29-2021 15:41-0400 Body temperature 97.3 [degF] No PCP [facility] [address] Work Phone: 01-29-2021 15:41-0400 Body weight 110.7 kg No PCP [facility] [place] Work Phone: 01-29-2021 15:41-0400 Diastolic blood pressure 72 mm[Hg] No PCP None [facility] [address] [place] Work Phone: 01-29-2021 15:41-0400 Systolic blood pressure 118 mm[Hg] No PCP None [facility] [address] [place] Work Phone: 01-22-2021 14:55-0400 Body height 162.56 cm No PCP None [facility] [address] Work Phone: 01-22-2021 14:55-0400 Body mass index (BMI) [Ratio] 41.21 kg/m2 No PCP None [facility] [address] Work Phone: 01-22-2021 14:55-0400 Body surface area Derived from formula 2.11 m2 No PCP None [facility] [address] Work Phone: 01-22-2021 14:55-0400 Body temperature 97.5 [degF] No PCP None [facility] [address] Work Phone: 01-22-2021 14:55-0400 Body weight 108.9 kg No PCP [facility] [address] Work Phone: 01-22-2021 14:55-0400 Diastolic blood pressure 68 mm[Hg] No PCP None [facility] [address] Work Phone: 01-22-2021 14:55-0400 Systolic blood pressure 118 mm[Hg] No PCP None [facility] [place] Work Phone: 01-08-2021 13:30-0400 Body height 162.56 cm No PCP None [facility] [address] Work Phone: 01-08-2021 13:30-0400 Body mass index (BMI) [Ratio] 40 kg/m2 No PCP None [facility] [address] Work Phone: 01-08-2021 13:30-0400 Body surface area Derived from formula 2.09 m2 No PCP None [facility] [address] Work Phone: 01-08-2021 13:30-0400 Body temperature 97.8 [degF] No PCP None [facility] [address] Work Phone: 01-08-2021 13:30-0400 Body weight 105.7 kg No PCP None [facility] [address] Work Phone: 01-08-2021 13:30-0400 Diastolic blood pressure 64 mm[Hg] No PCP None [facility] [address] Work Phone: 01-08-2021 13:30-0400 Systolic blood pressure 110 mm[Hg] No PCP None [facility] [place] Work Phone: 12-24-2020 10:17-040 Body height 162.56 cm No PCP None [facility] [address] Work Phone: 12-24-2020 10:17-040 Body mass index (BMI) [Ratio] 38.64 kg/m2 No PCP None [facility] [place] Work Phone: 12-24-2020 10:17-040 Body surface area Derived from formula 2.06 m2 No PCP None [facility] [place] Work Phone: 12-24-2020 10:17040 Body temperature 98.2 [degF] No PCP None [facility] [place] Work Phone: 12-24-2020 10:17040 Body weight 102.1 kg No PCP None [facility] [place] Work Phone: 12-24-2020 10:17-040 Diastolic blood pressure 66 mm[Hg] No PCP None [facility] [place] Work Phone: 12-24-2020 10:17-040 Systolic blood pressure 108 mm[Hg] No PCP None [facility] [place] Work Phone: 12-07-2020 14:29-0400 Body height 162.56 cm No PCP None [facility] [address] Work Phone: 12-07-2020 14:29-0400 Body mass index (BMI) [Ratio] 39.24 kg/m2 No PCP None [facility] [place] Work Phone: 12-07-2020 14:29-0400 Body surface area Derived from formula 2.07 m2 No PCP None [facility] [address] Work Phone: 12-07-2020 14:29-0400 Body temperature 97.8 [degF] No PCP None [facility] [address] Work Phone: 12-07-2020 14:29-0400 Body weight 103.7 kg No PCP None [facility] [address] Work Phone: 12-07-2020 14:29-0400 Diastolic blood pressure 64 mm[Hg] No PCP None [facility] [address] Work Phone: 12-07-2020 14:29-0400 Systolic blood pressure 110 mm[Hg] No PCP None [facility] [address] Work Phone: 11-09-2020 13:50-0400 Body height 162.56 cm No PCP None [facility] [address] Work Phone: 11-09-2020 13:50-0400 Body mass index (BMI) [Ratio] 38.26 kg/m2 No PCP None [facility] [address] Work Phone: 11-09-2020 13:50-0400 Body surface area Derived from formula 2.05 m2 No PCP None [facility] [address] Work Phone: 11-09-2020 13:50-0400 Body temperature 97.3 [degF] No PCP None [facility] [address] Work Phone: 11-09-2020 13:50-0400 Body weight 101.09 kg No PCP None [facility] [address] Work Phone: 11-09-2020 13:50-0400 Diastolic blood pressure 64 mm[Hg] No PCP None [facility] [address] Work Phone: 11-09-2020 13:50-0400 Systolic blood pressure 116 mm[Hg] No PCP None [address] Work Phone: Encounters Encounter Date Encounter Type Care Provider Facility Start: 10-26-2024 End: 10-26-2024 Patient encounter procedure Alexandra Mullins MD Work Phone: OB/Gynecology Comment on above: Supervision of high risk in third trimester (HCC) (Primary Dx); 39 weeks gestation of (HCC); Obesity affecting in third trimester, unspecified obesity type (HCC) Start: 10-19-2024 End: 10-19-2024 Patient encounter procedure Nicole Keller ESTHETIC DERMATOLOGIST.CNM Work Phone: OB/Gynecology Comment on above: 38 weeks gestation o f (HCC) (Primary Dx); Supervision of high risk in third trimester (HCC); Obesity affecting in third trimester, unspecified obesity type (HCC); Positive GBS test Start: 10-19-2024 End: 10-19-2024 ambulatory NICOLE KELLER Facility:[facility] Start: 10-12-2024 End: 10-12-2024 ambulatory RACHEL MCINTOSH Facility:[facility] Start: 10-12-2024 End: 10-12-2024 Patient encounter procedure Rachel Mcintosh MD Work Phone: OB/Gynecology Comment on above: Supervision of high risk in third trimester (HCC) (Primary Dx); Obesity affecting in third trimester, unspecified obesity type (HCC); Edema during in third trimester (HCC); Positive GBS test; 37 weeks gestation of (HCC) Start: 10-05-2024 End: 10-05-2024 Patient encounter procedure Nicole Keller ESTHETIC DERMATOLOGIST.CNM Work Phone: OB/Gynecology Comment on above: 36 weeks gestation o f (HCC) (Primary Dx); Supervision of high risk in third trimester (HCC); Obesity affecting in third trimester, unspecified obesity type (HCC) Start: 10-05-2024 End: 10-05-2024 ambulatory [facility] Facility[facility] Start: 09-21-2024 End: 09-21-2024 ambulatory RAMONA BOYD Facility:[facility] Start: 09-19-2024 End: 09-19-2024 Telephone encounter Alexandra Mullins MD Work Phone: OB/Gynecology Comment on above: Breast Pump Start: 09-07-2024 End: 09-07-2024 Patient encounter procedure Alexandra Mullins MD Work Phone: OB/Gynecology Comment on above: Supervision of high risk in third trimester (HCC) (Primary Dx); 32 weeks gestation of (HCC); Edema during in third trimester (HCC) Start: 09-07-2024 End: 09-07-2024 ambulatory ALEXANDRA MULLINS Facility:[facility] Start: 08-24-2024 End: 08-24-2024 ambulatory REENA TELLES Facility:[facility] Start: 08-17-2024 End: 08-18-2024 Refill Mekhi Wen MD Work Phone: OB/Gynecology Comment on above: Refill Request Start: 08-15-2024 End: 08-15-2024 Patient encounter procedure Vandana Smith CNM [facility] Work Phone: Start: 08-15-2024 End: 08-15-2024 ambulatory No Primary Care Physician [facility] Work Phone: Start: 08-15-2024 End: 10-15-2024 Follow-up encounter Alexandra Mullins MD Work Phone: OB/Gynecology Start: 08-10-2024 End: 08-10-2024 Patient encounter procedure Vandana Smith APRN.CNYuridia Work Phone: OB/Gynecology Comment on above: Supervision of high risk in third trimester (HCC) (Primary Dx); 28 weeks gestation of (HCC); Penicillin allergy; Other obesity affecting in third trimester (HCC) Start: 08-10-2024 End: 08-10-2024 ambulatory VANDANA SMITH Facility:[facility] Start: 07-18-2024 End: 09-17-2024 Follow-up encounter Reena Telles APRN.DEMOLITION SPECIALIST Work Phone: OB/Gynecology Start: 07-15-2024 End: 07-15-2024 ambulatory REENA TELLES Facility:[facility] Start: 07-15-2024 End: 07-15-2024 Patient encounter procedure Alexandra Mullins MD Work Phone: OB/Gynecology Comment on above: Screening for diabet es mellitus (Primary Dx); Encounter for supervision of high risk in second trimester, antepartum; Obesity affecting in first trimester, unspecified obesity type; Penicillin allergy; 25 weeks gestation of Encounter for follow -up ultrasound of anatomy (Primary Dx); 24 weeks gestation of ; Encounter for supervision of high risk in second trimester, antepartum Start: 06-15-2024 End: 08-15-2024 Follow-up encounter Reena Telles APRN.DEMOLITION SPECIALIST Work Phone: OB/Gynecology Start: 06-15-2024 End: 06-15-2024 Telephone encounter Reena Telles APRN.DEMOLITION SPECIALIST Work Phone: OB/Gynecology Comment on above: Follow Up Start: 06-14-2024 End: 06-14-2024 ambulatory REENA TELLES Facility:[facility] Start: 06-14-2024 End: 06-14-2024 Patient encounter procedure Rachel Mcintosh MD Work Phone: OB/Gynecology Comment on above: 20 weeks gestation o f (Primary Dx); Encounter for supervision of high risk in first trimester, antepartum; Obesity affecting in first trimester, unspecified obesity type Encounter for anatomic survey (Primary Dx); 20 weeks gestation of ; Obesity affecting in second trimester, unspecified obesity type Start: 05-17-2024 End: 05-17-2024 ambulatory MEKHI WEN Facility:[facility] Start: 05-17-2024 End: 05-17-2024 Patient encounter procedure Mekhi Wen MD Work Phone: OB/Gynecology Comment on above: 16 weeks gestation o f (Primary Dx); Encounter for supervision of high risk in first trimester, antepartum; Obesity affecting in first trimester, unspecified obesity type Start: 04-19-2024 End: 04-19-2024 ambulatory REENA TELLES Facility:[facility] Start: 04-19-2024 End: 04-19-2024 Patient encounter procedure Mekhi Wen MD Work Phone: OB/Gynecology Comment on above: 12 weeks gestation o f (Primary Dx); Encounter for supervision of high risk in first trimester, antepartum Start: 03-21-2024 End: 03-21-2024 ambulatory REENA TELLES Facility:[facility] Start: 03-21-2024 End: 03-21-2024 Patient encounter procedure Reena Telles ESTHETIC DERMATOLOGIST.DEMOLITION SPECIALIST Work Phone: OB/Gynecology Comment on above: Encounter for superv ision of high risk in first trimester, antepartum (Primary Dx); 8 weeks gestation of ; with uncertain dates in first trimester; Obesity affecting in first trimester, unspecified obesity type; Penicillin allergy; Nausea and vomiting during ; Heartburn during in first trimester; Constipation during in first trimester Start: 04-24-2022 Periodic preventive med est patient 18-39 yrs No PCP None [employer] Work Phone: Start: 04-24-2022 ambulatory KACY WHITAKER [facility] ty:[id number] Start: 08-29-2021 End: 08-30-2021 ambulatory [facility] Start: 08-27-2021 End: 08-28-2021 Emergency department patient visit [facility] Start: 04-03-2021 Patient encounter procedure No PCP [facility] Work Phone: Start: 02-20-2021 Patient encounter procedure Behzad Hernandez [facility] Start: 02-17-2021 End: 02-19-2021 Evaluation and management of inpatient Alexandre Nikolas [facility] 405 Start: 02-13-2021 Patient encounter procedure No PCP None [facility] Work Phone: Start: 02-08-2021 Chart Update No PCP None [employer] Work Phone: Start: 01-29-2021 Office outpatient vi sit 15 minutes No PCP None [facility] [address] Work Phone: Start: 01-25-2021 Chart Update No PCP None [facility] [address] Work Phone: Start: 01-23-2021 Chart Update No PCP None [facility] [address] Work Phone: Start: 01-22-2021 Office outpatient vi sit 15 minutes No PCP None [facility] [address] Work Phone: Start: 01-08-2021 Office outpatient vi sit 15 minutes No PCP None [facility] [address] Work Phone: Start: 12-24-2020 Office outpatient vi sit 15 minutes No PCP None [facility] [address] Work Phone: Start: 12-07-2020 Office outpatient vi sit 15 minutes No PCP None [facility] [address] Work Phone: Start: 11-16-2020 Chart Update No PCP None [facility] [place] Work Phone: Start: 11-13-2020 Chart Update No PCP None [facility] [address] Work Phone: Start: 11-09-2020 EPVOB, Provider: Behzad Hernandez, Status: Pen, Time: 1:45 PM No PCP None [facility] [address] Work Phone: Start: 11-08-2020 AUDIT No PCP None [facility] [address] Work Phone: Start: 06-02-2017 Emergency department patient visit [facility] Procedures Date Procedure Procedure Detail Performing Clinician Start: 10-26-2024 Urnls dip stick/tabl et rgnt non-auto w/o micrscp Alexandra Mullins MD Work Phone: Start: 10-19-2024 Urnls dip stick/tabl et rgnt non-auto w/o micrscp Nicole Keller ESTHETIC DERMATOLOGIST.CNM Work Phone: Start: 10-12-2024 Urnls dip stick/tabl et rgnt non-auto w/o micrscp Rachel Mcintosh MD Work Phone: Start: 10-05-2024 Urnls dip stick/tabl et rgnt non-auto w/o micrscp Nicole Keller ESTHETIC DERMATOLOGIST.CNM Work Phone: Start: 07-15-2024 Us preg uterus after 1st trimest 1/ gestation Reena Telles ESTHETIC DERMATOLOGIST.DEMOLITION SPECIALIST Work Phone: Start: 06-14-2024 Us preg uterus after 1st trimest 1/ gestation Reena Telles APRN.DEMOLITION SPECIALIST Work Phone: Start: 04-19-2024 Antibody screen REENA H JONNATHAN Comment on above: Order Comment: Speci men Type: BLOOD SPECIMEN Ordering Facility: [facility] Address: [address] [place] [address] Performed By: #### T SPN #### [facility] CLIA [id number] [address] [place] [address] [place] Start: 03-21-2024 Us uterus l imited 1 fetuses Reena Telles APRN.DEMOLITION SPECIALIST Work Phone: Start: 02-17-2021 Antibody screen Comment on above: Performed By: #### T +S #### [place] [address] Start: 08-13-2020 Antibody screen Comment on above: Performed By: #### T +S #### [place] [address] Extraction of wisdom tooth N o PCP None Tonsillectomy No PCP None Plan of Treatment Date Care Activity Detail Author Start: 03-21-2027 Screening for malign ant neoplasm of cervix Cervical Cancer Screening [facility] Start: 01-02-2025 Influenza vaccination Influenz a Vaccine (Season Ended) [facility] Start: 10-26-2024 End: 10-26-2024 Patient encounter procedure 10/26/2024 10:10 AM EDT Routine Office Visit OB/Gynecology [address] [place] [address] Alexandra Mullins MD [address] [place] [address] OB OB/Gynecology Comment on above: OB Start: 10-19-2024 End: 10-19-2024 Patient encounter procedure 10/19/2024 10:30 AM EDT Routine Office Visit OB/Gynecology [address] [place] [address] Nicole Keller APRN.CNM [address] [place] [address] Ob OB/Gynecology Comment on above: Ob Start: 10-12-2024 End: 10-12-2024 Patient encounter procedure 10/12/2024 3:50 PM EDT Routine Office Visit OB/Gynecology [address] [place] [address] Rachel Mcintosh MD [address] [place] [address] OB OB/Gynecology Comment on above: OB Start: 10-05-2024 End: 10-05-2024 Patient encounter procedure 10/05/2024 2:30 PM EDT Routine Office Visit OB/Gynecology [address] [place] [address] Nicole Keller APRN.CNM [address] [place] [address] OB OB/Gynecology Comment on above: OB Start: 09-21-2024 End: 09-21-2024 Patient encounter procedure 09/21/2024 3:40 PM EDT Routine Office Visit OB/Gynecology [address] [place] [address] Ramona Ugalde MD [address] [place] [address] Ob OB/Gynecology Comment on above: Ob Start: 08-30-2024 End: 08-30-2024 ambulatory 08/30/2024 3:30 PM EDT [facility] [address] [place] [address] Ellen Blank MD [address] [place] [address] Supervision of high risk in third trimester (HCC) [O09.93] Allergy Comment on above: Supervision of high risk in third trimester (HCC) [O09.93] Start: 08-24-2024 End: 08-24-2024 Patient encounter procedure 08/24/2024 3:45 PM EDT Routine Office Visit OB/Gynecology [address] [place] [address] Reena Telles APRN.DEMOLITION SPECIALIST [address] [place] [address] OB OB/Gynecology Comment on above: OB Start: 08-15-2024 Nonstress test [facility] Start: 08-15-2024 Obstetric monitoring [facility] Start: 08-15-2024 Vital signs measurements [facility] Start: 08-15-2024 [facility] Start: 08-15-2024 Patient discharge [facility] Start: 08-10-2024 End: 08-10-2024 Patient encounter procedure 08/10/2024 11:15 AM EDT Routine Office Visit OB/Gynecology [address] [place] [address] Vandana Smith APRN.CNM [address] [place] [address] OB Routine OB/Gynecology Comment on above: OB Routine Start: 08-10-2024 End: 08-10-2024 ambulatory 08/10/2024 11:00 AM EDT Results Only [place] [address] [facility] [address] [place] [address] Glucose test and labs [facility] Comment on above: Glucose test and lab s Start: 07-15-2024 End: 07-15-2024 Patient encounter procedure [facility]aternal [facility] Comment on above: f/u anatomy OB Routine Start: 07-15-2024 End: 10-14-2024 ANEMIA REFLEX PANEL ANEMIA REFLEX PANEL Lab Routine Encounter for supervision of high risk in second trimester, antepartum 25 weeks gestation of Expected: 07/15/2024, Expires: 10/14/2024 [facility] Comment on above: Expected: 07/15/2024 , Expires: 10/14/2024 Start: 07-15-2024 End: 07-15-2025 GESTATIONAL GLUCOSE SCREEN, 1-HOUR, 50 GRAM, NON-FASTING GESTATIONAL GLUCOSE SCREEN, 1-HOUR, 50 GRAM, NON-FASTING Lab Routine Screening for diabetes mellitus Expected: 07/15/2024, Expires: 07/15/2025 [facility] Work Phone: Comment on above: Expected: 07/15/2024 , Expires: 07/15/2025 Start: 07-15-2024 End: 07-15-2025 SYPHILIS TREPONEMAL W/REFLEX SYPHILIS TREPONEMAL W/REFLEX Lab Routine Encounter for supervision of high risk in second trimester, antepartum 25 weeks gestation of Expected: 07/15/2024, Expires: 07/15/2025 [facility] Comment on above: Expected: 07/15/2024 , Expires: 07/15/2025 Start: 07-14-2024 End: 07-14-2024 Patient encounter procedure 07/14/2024 3:40 PM EDT Routine Office Visit OB/Gynecology [address] [place] [address] Mekhi Wen MD [address] [place] [address] OB Routine OB/Gynecology Comment on above: OB Routine Start: 06-15-2024 End: 06-15-2025 OBSTETRIC ULTRASOUND WHI OBSTETRIC ULTRASOUND [facility]I Anc Imaging Routine Encounter for supervision of high risk in second trimester, antepartum Expected: 06/15/2024, Expires: 06/15/2025 [facility] Work Phone: Comment on above: Expected: 06/15/2024 , Expires: 06/15/2025 Start: 06-14-2024 End: 06-14-2024 Patient encounter procedure [facility] Comment on above: Anatomy Scan OB Routine Start: 05-17-2024 End: 05-17-2024 Patient encounter procedure 05/17/2024 3:40 PM EST Routine Office Visit OB/Gynecology [address] [place] [address] Mekhi Wen MD [address] [place] [address] OB Routine OB/Gynecology Comment on above: OB Routine Start: 04-18-2024 End: 04-18-2024 Patient encounter procedure 04/18/2024 1:10 PM EST Routine Office Visit OB/Gynecology [address] [place] [address] Alexandra Mullins MD [address] [place] [address] last period Jan 21 OB/Gynecology Comment on above: last perio d Jan 21 Start: 03-21-2024 End: 06-20-2024 ANEMIA REFLEX PANEL ANEMIA REFLEX PANEL Lab Routine 8 weeks gestation of with uncertain dates in first trimester Expected: 03/21/2024, Expires: 06/20/2024 [facility] Work Phone: Comment on above: Expected: 03/21/2024 , Expires: 06/20/2024 Start: 03-21-2024 End: 06-20-2024 Hemoglobin A1c in Blood HEMOGLOBIN A1C Lab Routine 8 weeks gestation of with uncertain dates in first trimester Expected: 03/21/2024, Expires: 06/20/2024 [facility] Comment on above: Expected: 03/21/2024 , Expires: 06/20/2024 Start: 03-21-2024 End: 06-20-2024 Hepatitis B virus surface Ag [Presence] in Serum HEPATITIS B SURFACE ANTIGEN Lab Routine 8 weeks gestation of with uncertain dates in first trimester Expected: 03/21/2024, Expires: 06/20/2024 [facility] Comment on above: Expected: 03/21/2024 , Expires: 06/20/2024 Start: 03-21-2024 End: 06-20-2024 Hepatitis C virus Ab [Presence] in Serum HEPATITIS C ANTIBODY IA WITH CONFIRMATION Lab Routine 8 weeks gestation of with uncertain dates in first trimester Expected: 03/21/2024, Expires: 06/20/2024 [facility] Comment on above: Expected: 03/21/2024 , Expires: 06/20/2024 Start: 03-21-2024 End: 06-20-2024 HIV 1+2 Ab [Presence] in Serum or Plasma by Immunoassay HIV 1/2 COMBO WITH REFLEX TO DIFFERENTIATION Lab Routine 8 weeks gestation of with uncertain dates in first trimester Expected: 03/21/2024, Expires: 06/20/2024 [facility] Comment on above: Expected: 03/21/2024 , Expires: 06/20/2024 Start: 03-21-2024 End: 03-21-2025 NUCHAL TRANSLUCENCY WHI NUCHAL TRANSLUCENCY WHI Anc Imaging Routine 8 weeks gestation of with uncertain dates in first trimester Expected: 03/21/2024, Expires: 03/21/2025 [facility] Comment on above: Expected: 03/21/2024 , Expires: 03/21/2025 Start: 03-21-2024 End: 03-21-2025 OBSTETRIC ULTRASOUND WHI OBSTETRIC ULTRASOUND WHI Anc Imaging Routine 8 weeks gestation of with uncertain dates in first trimester Expected: 03/21/2024, Expires: 03/21/2025 [facility] Comment on above: Expected: 03/21/2024 , Expires: 03/21/2025 Start: 03-21-2024 End: 06-20-2024 RUBELLA IGG ANTIBODY RUBELLA IGG ANTIBODY Lab Routine 8 weeks gestation of with uncertain dates in first trimester Expected: 03/21/2024, Expires: 06/20/2024 [facility] Comment on above: Expected: 03/21/2024 , Expires: 06/20/2024 Start: 03-21-2024 End: 06-20-2024 SYPHILIS TREPONEMAL W/REFLEX SYPHILIS TREPONEMAL W/REFLEX Lab Routine 8 weeks gestation of with uncertain dates in first trimester Expected: 03/21/2024, Expires: 06/20/2024 [facility] Comment on above: Expected: 03/21/2024 , Expires: 06/20/2024 Start: 03-21-2024 End: 06-20-2024 TYPE + SCREEN TYPE + SCREEN Blood Bank Routine 8 weeks gestation of with uncertain dates in first trimester Expected: 03/21/2024, Expires: 06/20/2024 [facility] Comment on above: Expected: 03/21/2024 , Expires: 06/20/2024 Start: 01-03-2024 Covid-19 Vaccine () Covid-19 Vaccine () [facility] Start: 01-03-2024 Influenza vaccination Influenza Vacc ine (#1) [facility] Start: 02-20-2021 EPVOB, Provider: Behzad Hernandez, Status: Pen, Time: 2:45 PM EPVOB, Provider: Behzad Hernandez, Status: Pen, Time: 2:45 PM [employer] Work Phone: Start: 02-20-2021 Patient encounter procedure Outpatient [facility] Start: 20-Feb-2021 14:45 Behzad Hernandez R Intent [facility] Start: 02-18-2021 EPVOB, Provider: Behzad Hernandez, Status: Pen, Time: 9:00 AM EPVOB, Provider: Behzad Hernandez, Status: Pen, Time: 9:00 AM [employer] Work Phone: Start: 02-17-2021 End: 02-18-2022 [facility] Comment on above: administer if patien t screen is non- immune or equivocal After and PRN Before Discharge Consult provider anita or to administration. Conditional order. C onsult Provider prior to administration. Max dose of 16mg / 2 4 hours Conditional order. 6 00 milliunits/min x 30 mins., then 60 milliunits/min for the remainder of the bag. Consult Provider prior to administration. Start: 02-17-2021 End: 02-18-2022 [facility] Comment on above: Consult provider anita or to administration. Push over more than 2 minutes. Systolic greater than or equal to 160 OR Diastolic greater than or equal to 110. Contraindications: active asthma, heart disease, heart failure, maternal bradycardia < 60. Consult provider anita or to administration. Push over more than 2 minutes. Systolic greater than or equal to 160 OR Diastolic greater than or equal to 110. Contraindication: coronary artery disease (CAD); Caution in suspected CAD. Consult provider anita or to administration. Systolic greater than or equal to 160 OR Diastolic greater than or equal to 110. Capsules administered orally and swallowed whole; Do not puncture or crush; Do not administer sublingually. Start: 02-13-2021 EPVOB, Provider: Alexandre Connor, Status: Pen, Time: 2:15 PM EPVOB, Provider: Alexandre Connor, Status: Pen, Time: 2:15 PM [employer] Work Phone: Start: 02-06-2021 EPVOB, Provider: Behzad Hernandez, Status: Pen, Time: 2:30 PM EPVOB, Provider: Behzad Hernandez, Status: Pen, Time: 2:30 PM [employer] Work Phone: Start: 01-29-2021 EPVOB, Provider: Behzad Hernandez, Status: Pen, Time: 3:30 PM EPVOB, Provider: Behzad Hernandez, Status: Pen, Time: 3:30 PM [employer] Work Phone: Start: 01-22-2021 EPVOB, Provider: Behzad Hernandez, Status: Pen, Time: 3:00 PM EPVOB, Provider: Behzad Hernandez, Status: Pen, Time: 3:00 PM [employer] Work Phone: Start: 01-08-2021 EPVOB, Provider: Behzad Hernandez, Status: Pen, Time: 1:30 PM EPVOB, Provider: Behzad Hernandez, Status: Pen, Time: 1:30 PM [employer] Work Phone: Start: 12-24-2020 EPVOB, Provider: Behzad Hernandez, Status: Pen, Time: 10:00 AM EPVOB, Provider: Behzad Hernandez, Status: Pen, Time: 10:00 AM [employer] Work Phone: Start: 12-07-2020 EPVOB, Provider: Behzad Hernandez, Status: Pen, Time: 1:30 PM EPVOB, Provider: Behzad Hernandez, Status: Pen, Time: 1:30 PM [employer] Work Phone: Start: 2016 Screening for malign ant neoplasm of cervix Cervical Cancer Screening [facility] Start: 2014 Hepatitis B Vaccine (1 of 3 - 19+ 3-dose series) Hepatitis B Vaccine (1 of 3 - 19+ 3-dose series) [facility] Start: 2014 Urine microalbumin profile DTaP,Tdap,Td Vaccine (1 - Tdap) [facility] Start: 2013 Anxiety Screening Anxiety Screening [facility] Start: 2013 Depression Screening Depression Scre [facility] Start: 2013 HIV screening HIV Screening [facility] Bacteria identified in Urine by Culture URINE CULTURE Microbiology Routine 8 weeks gestation of with uncertain dates in first trimester 03/21/2024 11:37 AM [facility] Chlamydia trachomatis+Neisseria gonorrhoeae DNA [Presence] in Unspecified specimen by SUZETTE with probe detection GONORRHEA/CHLAMYDIA NAAT Lab Routine 8 weeks gestation of with uncertain dates in first trimester 03/21/2024 11:37 AM [facility] PAP TEST PAP TEST Lab Dasha allen 8 weeks gestation of with uncertain dates in first trimester 03/21/2024 11:37 AM [facility] Patient Education Kick Counts ED False Labor OB Triage: Return to Hospital or Notify Physician if you Experience: [facility] Work Phone: Patient referral [facility] Work Phone: ROUTINE, GR OUP B STREPTOCOCCUS BY PCR ROUTINE, GROUP B STREPTOCOCCUS BY PCR Microbiology Routine 36 weeks gestation of ([facility]) Supervision of high risk in third trimester ([facility]) Obesity affecting in third trimester, unspecified obesity type ([facility]) 10/05/2024 2:55 PM EDT [facility] Work Phone: Immunizations Immunization Date Immunization Notes Care Provider Shiva fallon 02-19-2021 tetanus toxoid, redu jg diphtheria toxoid, and acellular pertussis vaccine, adsorbed No Pcp Required [facility] Payers Date Payer Category Payer Self-pay 2023 Private Health Insurance [id number] 2021 Unknown [id number] 2009 Unknown 1995 Unknown [id number] [id number] 1995 Unknown [id number] [id number] 1995 Unknown [id number] [id number]. [id number] Unknown [id number] Social History Date Type Detail Facility Start: 03-21-2024 End: 10-26-2024 Does not use tobacco Does not use tobacco [address] Work Phone: Tobacco smoking consumption unknown [facility] Start: 03-15-2024 Tobacco smoking stat us NHIS Never smoked tobacco [facility] Start: 03-15-2024 Tobacco use and exposure Smokeless tobacco non-user [facility] Start: 03-21-2024 End: 10-26-2024 Alcoholic beverage intake Ex-drinker (finding) [facility] Start: 03-21-2024 End: 10-26-2024 Tobacco use panel [facility] Start: 03-15-2024 Education 15 [facility] Start: 02-05-2024 [facility] Start: 1995 Sex assigned at Female [facility] Start: 03-15-2024 Gender identity Identifies as female gender (finding) [facility] Start: 03-15-2024 Sexual orientation Heterosexual (dayana mcneil) [facility] National Score (1-10 0), lower number is lower risk 60 [facility] Start: 08-15-2024 Sex Female (finding) [place] [facility] Functional Status Date Assessment Result Facility Functional observable [facility] Mental Status Date Assessment Result Facility 02-18-2021 Cognitive functions 0218:20 [facility] Clinical Notes 02-17-2021 to 10-26-2024 Quick Notes - Alexandra Mullins MD - 10/26/2024 11:02 AM EDTPrenatal Quick Notes - Alexandra Mullins MD - 10/26/2024 11:02 AM EDTPatient InstructionsPatient Instructions<item> Note Date & Type Note Facility 10-26-2024 Progress note Formatting of t his note might be different from the original. RR- VB No. LOF No. CTXS No. Movement: present. Other c/o: No. Medication list reviewed. SENSITIVE EXAM: The sensitive examination was discussed with the Patient or Patient's Authorized Business Continuity Consultant. As applicable, any other physician, advance practice provider, medical student, or other health professional student that will be observing or involved in the sensitive examination for educational or training purposes was discussed with the Patient or Authorized Business Continuity Consultant. The Patient or Authorized Business Continuity Consultant has agreed to proceed with the sensitive examination. (Sensitive examination includes inspection and/or palpation of the breasts, pelvis, prostate and anorectal regions). Physical Exam See Flow Sheet Abd: soft, nontender, gravid : external genitalia: normal Ext: edema: Trace A/P 39w5d Estimated Date of Delivery: 10/28/24 Assessment & Plan 39 weeks gestation of (HCC) Orders: URINE OB DIP B/O Supervision of high risk in third trimester ([facility]) Orders: URINE OB DIP B/O Obesity affecting in third trimester, unspecified obesity type ([facility]) Orders: URINE OB DIP B/O kick counts d/w her r/b/a to induction- would like to proceed. BMI 40 now, pre 34 but reasonble for induction/ No signs/symptoms of preeclampsia today. Alexandra Mullins M.D. [facility] 10-26-2024 Miscellaneous Notes RR- VB No. LOF No. CTXS No. Movement: present. Other c/o: No. Medication list reviewed. SENSITIVE EXAM: The sensitive examination was discussed with the Patient or Patient's Authorized Business Continuity Consultant. As applicable, any other physician, advance practice provider, medical student, or other health professional student that will be observing or involved in the sensitive examination for educational or training purposes was discussed with the Patient or Authorized Business Continuity Consultant. The Patient or Authorized Business Continuity Consultant has agreed to proceed with the sensitive examination. (Sensitive examination includes inspection and/or palpation of the breasts, pelvis, prostate and anorectal regions). Physical Exam See Flow Sheet Abd: soft, nontender, gravid : external genitalia: normal Ext: edema: Trace A/P 39w5d Estimated Date of Delivery: 10/28/24 Assessment & Plan 39 weeks gestation of ([facility]) Orders: URINE OB DIP B/O Supervision of high risk in third trimester ([facility]) Orders: URINE OB DIP B/O Obesity affecting in third trimester, unspecified obesity type ([facility]) Orders: URINE OB DIP B/O kick counts d/w her r/b/a to induction- would like to proceed. BMI 40 now, pre 34 but reasonble for induction/ No signs/symptoms of preeclampsia today. Alexandra Mullins M.D. documented in this encounter [facility] 10-26-2024 Instructions Lindsay Menjivar LPN - 10/26/2024 10:10 AM EDT SEQUENTIAL SCREENINGS The [facility] offers sequential screenings for women who are interested in screenings for chromosomal abnormalities and certain defects during a . The sequential screen combines ultrasound and blood tests to determine the risk of chromosomal abnormalities, including Down's Syndrome (Trisomy 21) and Trisomy 18, as well as open neural tube defects including spina bifida. Ultrasound examination is performed between 11 weeks and 13 weeks gestational age. Blood tests are drawn after the ultrasound and again later in the between 15 and 21 weeks gestational age. Please let your physician know if you are interested in this testing. It will require an appointment with our library media technician. This is not an ultrasound performed by a physician in our office during a routine visit. SIGNS AND SYMPTOMS OF LABOR 1. Contractions every 10 minutes or more often 2. Clear, pink, or brownish fluid (water) leaking from vagina 3. Feeling that baby is pushing down, pressure 4. Low, dull backache 5. Cramps that feel like a period 6. Cramps with or without diarrhea If you notice any of the above symptoms, contact our office at [phone] and ask to speak with a nurse. After hours, you can call doctors registry at [phone] OR call [facility] at [phone] and ask to have the doctor air traffic control equipment repairer paged. If you consider this an emergency, dial 9-1-5 or go to your nearest emergency department. NEED HELP? Are you dealing with a violent or abusive relationship? Are you a victim of rape or sexual assult? Call [facility] ([place]) 24 hour Crisis Hotline: 847.246.8895 or 977-028-4924. MANUAL Your Guide to a Healthy manual is now on-line. Visit [email or web address] to download your free copy documented in this encounter [facility] 10-19-2024 Note HNO ID: [id number] Author: AIDAN KEMP MA Service: ? Author Type: Passenger Screener Type: Progress Notes Filed: 10/19/2024 13:21 Note Text: TRUE BP: 1) 112/78 2) 118/82 3) 113/78 4) 117/79 Average: 118/80 [facility] 10-19-2024 History of Present illness Narrative TRUE BP: 1) 112/78 2) 118/82 3) 113/78 4) 117/79 Average: 118/80 documented in this encounter [facility] 10-19-2024 Progress note Formatting of t his note might be different from the original. S: Reena Jama is a 29 year old female who presents at 38 weeks gestation for a routine visit. Positive movements. Denies feeling any regular contractions. Feeling increased vaginal pressure. Stopped working last week. Denies headache, visual changes, chest pain, shortness of breath, vaginal bleeding, leakage of fluid, or dysuria. Requesting CE today. O: See flow sheet Gen: No apparent distress Abd: Gravid, non tender BLE- 1+ non pitting edema CE- closed ASSESSMENT/PLAN: 1. 38 weeks gestation of 2. Supervision of high risk in third trimester 3. Obesity affecting in third trimester, unspecified obesity type (HCC) 4. Edema during in third trimester 5. Positive GBS test - Patient made comment regarding having a bad tear with repair with previous delivery. Thinks she had 3rd degree laceration. - Nothing in current chart- will have operative report pulled. - Initial BP slightly elevated at 126/84- True BP completed and average is 116/80 - PCN allergy and aware she will receive vancomycin IV during labor for GBS positive - Reviewed postdates IOL vs expectant management. Wanting unmedicated and to await spontaneous labor. Possible water . Discussed recomendation for IOL at 41 weeks.Risks of stillbirth, aging placenta, macrosomia, meconium and distress discussed. Recommend twice weekly testing with BPP and NST if continues past 41 weeks. - Labor precautions reviewed - RTO 1 week or sooner if needed Nicole Keller APRN.CNM [facility] 10-19-2024 Miscellaneous Notes S: Reena Jama is a 29 year old female who presents at 38 weeks gestation for a routine visit. Positive movements. Denies feeling any regular contractions. Feeling increased vaginal pressure. Stopped working last week. Denies headache, visual changes, chest pain, shortness of breath, vaginal bleeding, leakage of fluid, or dysuria. Requesting CE today. O: See flow sheet Gen: No apparent distress Abd: Gravid, non tender BLE- 1+ non pitting edema CE- closed ASSESSMENT/PLAN: 1. 38 weeks gestation of 2. Supervision of high risk in third trimester 3. Obesity affecting in third trimester, unspecified obesity type (HCC) 4. Edema during in third trimester 5. Positive GBS test - Patient made comment regarding having a bad tear with repair with previous delivery. Thinks she had 3rd degree laceration. - Nothing in current chart- will have operative report pulled. - Initial BP slightly elevated at 126/84- True BP completed and average is 116/80 - PCN allergy and aware she will receive vancomycin IV during labor for GBS positive - Reviewed postdates IOL vs expectant management. Wanting unmedicated and to await spontaneous labor. Possible water . Discussed recomendation for IOL at 41 weeks.Risks of stillbirth, aging placenta, macrosomia, meconium and distress discussed. Recommend twice weekly testing with BPP and NST if continues past 41 weeks. - Labor precautions reviewed - RTO 1 week or sooner if needed Nicole Keller APRN.CNM documented in this encounter [facility] 10-19-2024 Instructions Nicole Keller APRN.CNM - 10/19/2024 10:25 AM EDT Images from the original note were not included. Preparing for labor: Eat dates to promote spontaneous labor! Has an oxytocin-like effect on the body, leading to increased sensitivity of the uterus. Stimulates uterine contractions. Reduces hemorrhage the way oxytocin does. Date fruit contains saturated and unsaturated fatty acids such as oleic, linoleic, and linolenic acids, which are involved in saving and supplying energy and construction of prostaglandins. In addition, serotonin, tannin, and calcium in date fruit contribute to the contraction of smooth muscles of the uterus. Date fruit also has a laxative effect, which stimulates uterine contractions. Six dates per day is the magic number--provided that you re eating smaller deglet noor dates. Deglet noor dates are about 1 inch long. Medjool dates can be up to 2 inches long. If you re eating medjool dates, you only need about 3 dates to reach the 75 grams recommended in the studies. Not sure which type of date you have in your refrigerator? It s probably a deglet noor. How to Eat Dates During Dates are a healthy and delicious snack, so how can you add them to your diet? Add dates during in this awesome oatmeal recipe. Add dates to replace sugar in your favorite recipe or to sharon your homemade almond milk. Use dates and nuts to make an easy pie crust in the food product inspector. Add soaked dates to homemade nut butter for a sweet treat. Add dates to sharon homemade salad dressing. Add dates during easily with these yummy (paleo friendly) bars made from dates. What Is Red Raspberry [place] Tea? Red raspberry leaf tea comes from the leaves of the red raspberry plant. This herbal tea has been used for centuries to support respiratory, digestive and uterine health, particularly during and childbearing years. While usually known as a female herb, red raspberry leaf tea can also help support the prostate and various stomach ailments in children. How It Can Help and Red raspberry leaf tea can help to make labor faster and reduce complications and interventions during . One study found that women who consumed RRL tea regularly are less likely to go overdue or give prematurely. These women may also be less likely to receive an artificial rupture of their membranes or require a section, forceps, or vacuum than the women in the control group. Red raspberry leaf has many other benefits to , , and too. How Much Red Raspberry [place] Tea to Drink? With your doctor or specimen accessioner s approval, start with 1 cup of red raspberry leaf tea per day starting in the second trimester. Watch for any uterine cramping or other reactions. If you don t experience any, you can talk to your healthcare provider about increasing to 2 cups per day. Again, watch for any uterine cramping. If you notice any, cut back on your dosage for two weeks and try again. Keep in mind, some moms have irritable uteruses and can only drink red raspberry leaf tea once they reach their due date because of uterine cramping. Is Red Raspberry [place] Tea the Same as Raspberry [place] Tea? How About Plain Old Raspberry Tea? Sometimes. You really need to look at the ingredients to be sure. Note that there is no difference between red raspberry leaf and raspberry leaf. [employer] or Traditional [employer] Raspberry [place] Tea are two good brands. The red raspberry leaf teas that we recommend are 100% red raspberry leaf. Other teas labeled as raspberry are often a blend of rosehips, hibiscus, raspberry leaves, and raspberry flavor. So they may not be as effective. The teas to avoid are raspberry-flavored herbal teas, which may have ingredients like hibiscus, jesus hips, apples, elderberries, natural and artificial raspberry flavors. Teas like this don t contain raspberry leaf at all and thus won t offer any of the potential benefits of RRLT outlined in this article. [employer] www.Iizuu I named this 'circuit' after my friend Loly Benjamin, who shared and discussed it with me when I was working with a client whose labor seemed to be stalled out and no longer progressing... This circuit is useful to help get the baby lined up, ideally, in the Left Occiput Anterior (OCTAVIO) Position, both before labor begins and when some corrections need to be done during labor. Prenatally, this position set can help to rotate a baby. As a natural method of induction, this can help get things going if baby just needed a gentle nudge of position to set things off. To the best of my knowledge, this group of positions will not hurt a baby that is already lined up correctly. - Akua Cool Before you Begin..... This circuit takes at least 90 minutes to complete so clear your schedule and make mental preparations so you can relax in your environment. The second step requires a lot of pillows so gather them up before beginning Before starting, you should empty your bladder! Have a nice drink nearby, and make sure it has a straw! If you are having contractions, this circuit should bedone through contractions, try not to change positions between steps Step One: Open-knee Chest Stay in this position for 30 minutes, start in cat/cow, then drop your chest as low as you can to the bed or the floor and your bottom as high as you can. Knees should be fairly wide apart, and the angle between the torso/thighs should be wider than 90 degrees. Wiggle around, prop with lots of pillows and use this time to get totally relaxed. This position allows the baby to scoot out of the pelvis a bit and gives them room to rotate, shift their head position, etc. If the person finds it helpful,careful positioning with a rebozo under the belly, with gentle tension from a support person behindcan help maintain this position for the full 30minutes. Step Two: Exaggerated Left Side Lying Roll to your left side, bringing your top leg as high as possible and keeping your bottom leg straight. Roll forward as much as possible,again using a lot of pillows. Sink into the bed and relax some more. If you fall asleep, that's totally okay and you can stay there! If not, stay here for at least another half an hour. Try and get your top right leg up towards your head and get as rolled over onto your belly as much as possible. If you repeat the circuit during labor, try alternating left and right sides. We know the photo the left is actually right side... just flip the image in your head. Step Three: Moving and Lunges Lunge, walk stairs facing sideways, 2 at a time, (have a carpet jack downstairs of you!), take a walk outside with one foot on the curb and the other on the street, sit on a ball and hula- anything that's upright and putting your pelvis in open, asymmetrical positions. Spend at least 30 minutes doing this one as well to give your baby a chance to move down. If you are lunging or stair or curb walking, you should lunge/walk/go up stairs in the direction that feels better to you. The ferrara with the lunge is that the toes of the higher leg and mom's belly button should be at right angles. Do not lunge over your knee, that closes the pelvis. Loly Benjamin: Circuit Creator - www.[email or web address] Akua Cool CD, BDT (SUPRIYA), LCCE, FACCE: Supporting Content - www.Travador Reena Mcdonald: Photography - www.[email or web address].[facility] Raquel Lewis CD/SABINAT (NURA): Print and Is Architect - www.Piqniq.[employer] Masterminds [employer] www.Iizuu SEQUENTIAL SCREENINGS The [facility] offers sequential screenings for women who are interested in screenings for chromosomal abnormalities and certain defects during a . The sequential screen combines ultrasound and blood tests to determine the risk of chromosomal abnormalities, including Down's Syndrome (Trisomy 21) and Trisomy 18, as well as open neural tube defects including spina bifida. Ultrasound examination is performed between 11 weeks and 13 weeks gestational age. Blood tests are drawn after the ultrasound and again later in the between 15 and 21 weeks gestational age. Please let your physician know if you are interested in this testing. It will require an appointment with our library media technician. This is not an ultrasound performed by a physician in our office during a routine visit. SIGNS AND SYMPTOMS OF LABOR 1. Contractions every 10 minutes or more often 2. Clear, pink, or brownish fluid (water) leaking from vagina 3. Feeling that baby is pushing down, pressure 4. Low, dull backache 5. Cramps that feel like a period 6. Cramps with or without diarrhea If you notice any of the above symptoms, contact our office at [phone] and ask to speak with a nurse. After hours, you can call doctors registry at [phone] OR call [facility] at [phone] and ask to have the doctor air traffic control equipment repairer paged. If you consider this an emergency, dial 9-1-1 or go to your nearest emergency department. NEED HELP? Are you dealing with a violent or abusive relationship? Are you a victim of rape or sexual assult? Call [facility] ([place]) 24 hour Crisis Hotline: 349.262.6979 or 602-450-2703. MANUAL Your Guide to a Healthy manual is now on-line. Visit [email or web address] to download your free copy documented in this encounter [facility] 10-12-2024 Progress note Formatting of t his note might be different from the original. S: Reena Jama is a 29 year old female who presents at 10/28/2024, by Last Menstrual Period for a routine visit. Denies headache, visual changes, chest pain, shortness of breath, vaginal bleeding, leakage of fluid, or dysuria. Feeling well, no complaints. Good movement, No contractions O: See flow sheet Gen: No apparent distress Abd: Gravid, nontender SENSITIVE EXAMINATION CONSENT: The sensitive examination was discussed with the Patient or Patient's Authorized Business Continuity Consultant. As applicable, any other physician, advance practice provider, medical student, or other health professional student that will be observing or involved in the sensitive examination for educational or training purposes was discussed with the Patient or Authorized Business Continuity Consultant. The Patient or Authorized Business Continuity Consultant has agreed to proceed with the sensitive examination. ASSESSMENT/PLAN: 1. Supervision of high risk in third trimester ([facility]) - ICD9: V23.9, ICD10: O09.93 (primary diagnosis) - URINE OB DIP B/O 2. Obesity affecting in third trimester, unspecified obesity type ([facility]) - ICD9: 649.13, ICD10: O99.213 - URINE OB DIP B/O 3. Edema during in third trimester ([facility]) - ICD9: 646.13, ICD10: O12.03 - URINE OB DIP B/O 4. Positive GBS test - ICD9: 041.02, ICD10: B95.1 Vanc in labor - URINE OB DIP B/O 5. 37 weeks gestation of ([facility]) - ICD9: V22.2, ICD10: Z3A.37 - URINE OB DIP B/O Rachel Mcintosh MD [facility] 10-12-2024 Miscellaneous Notes S: Reena Jama is a 29 year old female who presents at 10/28/2024, by Last Menstrual Period for a routine visit. Denies headache, visual changes, chest pain, shortness of breath, vaginal bleeding, leakage of fluid, or dysuria. Feeling well, no complaints. Good movement, No contractions O: See flow sheet Gen: No apparent distress Abd: Gravid, nontender SENSITIVE EXAMINATION CONSENT: The sensitive examination was discussed with the Patient or Patient's Authorized Business Continuity Consultant. As applicable, any other physician, advance practice provider, medical student, or other health professional student that will be observing or involved in the sensitive examination for educational or training purposes was discussed with the Patient or Authorized Business Continuity Consultant. The Patient or Authorized Business Continuity Consultant has agreed to proceed with the sensitive examination. ASSESSMENT/PLAN: 1. Supervision of high risk in third trimester ([facility]) - ICD9: V23.9, ICD10: O09.93 (primary diagnosis) - URINE OB DIP B/O 2. Obesity affecting in third trimester, unspecified obesity type ([facility]) - ICD9: 649.13, ICD10: O99.213 - URINE OB DIP B/O 3. Edema during in third trimester ([facility]) - ICD9: 646.13, ICD10: O12.03 - URINE OB DIP B/O 4. Positive GBS test - ICD9: 041.02, ICD10: B95.1 Vanc in labor - URINE OB DIP B/O 5. 37 weeks gestation of ([facility]) - ICD9: V22.2, ICD10: Z3A.37 - URINE OB DIP B/O Rachel Mcintosh MD documented in this encounter [facility] 10-12-2024 Instructions Oniel Borrero MA - 10/12/2024 3:52 PM EDT SEQUENTIAL SCREENINGS The [facility] offers sequential screenings for women who are interested in screenings for chromosomal abnormalities and certain defects during a . The sequential screen combines ultrasound and blood tests to determine the risk of chromosomal abnormalities, including Down's Syndrome (Trisomy 21) and Trisomy 18, as well as open neural tube defects including spina bifida. Ultrasound examination is performed between 11 weeks and 13 weeks gestational age. Blood tests are drawn after the ultrasound and again later in the between 15 and 21 weeks gestational age. Please let your physician know if you are interested in this testing. It will require an appointment with our library media technician. This is not an ultrasound performed by a physician in our office during a routine visit. SIGNS AND SYMPTOMS OF LABOR 1. Contractions every 10 minutes or more often 2. Clear, pink, or brownish fluid (water) leaking from vagina 3. Feeling that baby is pushing down, pressure 4. Low, dull backache 5. Cramps that feel like a period 6. Cramps with or without diarrhea If you notice any of the above symptoms, contact our office at [phone] and ask to speak with a nurse. After hours, you can call doctors registry at [phone] OR call [facility] at [phone] and ask to have the doctor air traffic control equipment repairer paged. If you consider this an emergency, dial 3--3 or go to your nearest emergency department. NEED HELP? Are you dealing with a violent or abusive relationship? Are you a victim of rape or sexual assult? Call [facility] ([place]) 24 hour Crisis Hotline: 499.277.5532 or 825-801-2653. MANUAL Your Guide to a Healthy manual is now on-line. Visit [email or web address] Christie to download your free copy documented in this encounter [facility] 10-05-2024 Progress note Formatting of t his note might be different from the original. S: Reena Jama is a 29 year old female who presents at 36 weeks gestation for a routine visit. Positive movements. 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 Wears compression stockings but continues to have increased ankle / foot swelling. Denies headache, visual changes, chest pain, shortness of breath, vaginal bleeding, leakage of fluid, or dysuria. O: See flow sheet Gen: No apparent distress Abd: Gravid, non tender BLE - no edema TAUS- confirms vertex ASSESSMENT/PLAN: 1. 36 weeks gestation of 2. Supervision of high risk in third trimester 3. Obesity affecting in third trimester, unspecified obesity type - Pregravid BMI 34 - GBS today - Desires water - reviewed process and reasons not allowing for this- aware that specimen accessioner has to be available for delivery - Desires spontaneous onset of labor - PTL precautions and kick counts reviewed - RTO 1 week for weekly visits Nicole Keller APRN.CNM [facility] Work Phone: 10-05-2024 Miscellaneous Notes S: Reena Jama is a 29 year old female who presents at 36 weeks gestation for a routine visit. Positive movements. 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 Wears compression stockings but continues to have increased ankle / foot swelling. Denies headache, visual changes, chest pain, shortness of breath, vaginal bleeding, leakage of fluid, or dysuria. O: See flow sheet Gen: No apparent distress Abd: Gravid, non tender BLE - no edema TAUS- confirms vertex ASSESSMENT/PLAN: 1. 36 weeks gestation of 2. Supervision of high risk in third trimester 3. Obesity affecting in third trimester, unspecified obesity type - Pregravid BMI 34 - GBS today - Desires water - reviewed process and reasons not allowing for this- aware that specimen accessioner has to be available for delivery - Desires spontaneous onset of labor - PTL precautions and kick counts reviewed - RTO 1 week for weekly visits Nicole Keller APRN.CNM documented in this encounter [facility] 10-05-2024 Instructions Nicole Keller APRN.CNM - 10/05/2024 2:03 PM EDT Images from the original note were not included. Preparing for labor: Eat dates to promote spontaneous labor! Has an oxytocin-like effect on the body, leading to increased sensitivity of the uterus. Stimulates uterine contractions. Reduces hemorrhage the way oxytocin does. Date fruit contains saturated and unsaturated fatty acids such as oleic, linoleic, and linolenic acids, which are involved in saving and supplying energy and construction of prostaglandins. In addition, serotonin, tannin, and calcium in date fruit contribute to the contraction of smooth muscles of the uterus. Date fruit also has a laxative effect, which stimulates uterine contractions. Six dates per day is the magic number--provided that you re eating smaller deglet noor dates. Deglet noor dates are about 1 inch long. Medjool dates can be up to 2 inches long. If you re eating medjool dates, you only need about 3 dates to reach the 75 grams recommended in the studies. Not sure which type of date you have in your refrigerator? It s probably a deglet noor. How to Eat Dates During Dates are a healthy and delicious snack, so how can you add them to your diet? Add dates during in this awesome oatmeal recipe. Add dates to replace sugar in your favorite recipe or to sharon your homemade almond milk. Use dates and nuts to make an easy pie crust in the food product inspector. Add soaked dates to homemade nut butter for a sweet treat. Add dates to sharon homemade salad dressing. Add dates during easily with these yummy (paleo friendly) bars made from dates. What Is Red Raspberry [place] Tea? Red raspberry leaf tea comes from the leaves of the red raspberry plant. This herbal tea has been used for centuries to support respiratory, digestive and uterine health, particularly during and childbearing years. While usually known as a female herb, red raspberry leaf tea can also help support the prostate and various stomach ailments in children. How It Can Help and Red raspberry leaf tea can help to make labor faster and reduce complications and interventions during . One study found that women who consumed RRL tea regularly are less likely to go overdue or give prematurely. These women may also be less likely to receive an artificial rupture of their membranes or require a section, forceps, or vacuum than the women in the control group. Red raspberry leaf has many other benefits to , , and too. How Much Red Raspberry [place] Tea to Drink? With your doctor or specimen accessioner s approval, start with 1 cup of red raspberry leaf tea per day starting in the second trimester. Watch for any uterine cramping or other reactions. If you don t experience any, you can talk to your healthcare provider about increasing to 2 cups per day. Again, watch for any uterine cramping. If you notice any, cut back on your dosage for two weeks and try again. Keep in mind, some moms have irritable uteruses and can only drink red raspberry leaf tea once they reach their due date because of uterine cramping. Is Red Raspberry [place] Tea the Same as Raspberry [place] Tea? How About Plain Old Raspberry Tea? Sometimes. You really need to look at the ingredients to be sure. Note that there is no difference between red raspberry leaf and raspberry leaf. [employer] or [employer] Raspberry [place] Tea are two good brands. The red raspberry leaf teas that we recommend are 100% red raspberry leaf. Other teas labeled as raspberry are often a blend of rosehips, hibiscus, raspberry leaves, and raspberry flavor. So they may not be as effective. The teas to avoid are raspberry-flavored herbal teas, which may have ingredients like hibiscus, jesus hips, apples, elderberries, natural and artificial raspberry flavors. Teas like this don t contain raspberry leaf at all and thus won t offer any of the potential benefits of RRLT outlined in this article. [employer] www.[employer].[facility] I named this 'circuit' after my friend Loly Benjamin, who shared and discussed it with me when I was working with a client whose labor seemed to be stalled out and no longer progressing... This circuit is useful to help get the baby lined up, ideally, in the Left Occiput Anterior (OCTAVIO) Position, both before labor begins and when some corrections need to be done during labor. Prenatally, this position set can help to rotate a baby. As a natural method of induction, this can help get things going if baby just needed a gentle nudge of position to set things off. To the best of my knowledge, this group of positions will not hurt a baby that is already lined up correctly. - Akua Cool Before you Begin..... This circuit takes at least 90 minutes to complete so clear your schedule and make mental preparations so you can relax in your environment. The second step requires a lot of pillows so gather them up before beginning Before starting, you should empty your bladder! Have a nice drink nearby, and make sure it has a straw! If you are having contractions, this circuit should bedone through contractions, try not to change positions between steps Step One: Open-knee Chest Stay in this position for 30 minutes, start in cat/cow, then drop your chest as low as you can to the bed or the floor and your bottom as high as you can. Knees should be fairly wide apart, and the angle between the torso/thighs should be wider than 90 degrees. Wiggle around, prop with lots of pillows and use this time to get totally relaxed. This position allows the baby to scoot out of the pelvis a bit and gives them room to rotate, shift their head position, etc. If the person finds it helpful,careful positioning with a rebozo under the belly, with gentle tension from a support person behindcan help maintain this position for the full 30minutes. Step Two: Exaggerated Left Side Lying Roll to your left side, bringing your top leg as high as possible and keeping your bottom leg straight. Roll forward as much as possible,again using a lot of pillows. Sink into the bed and relax some more. If you fall asleep, that's totally okay and you can stay there! If not, stay here for at least another half an hour. Try and get your top right leg up towards your head and get as rolled over onto your belly as much as possible. If you repeat the circuit during labor, try alternating left and right sides. We know the photo the left is actually right side... just flip the image in your head. Step Three: Moving and Lunges Lunge, walk stairs facing sideways, 2 at a time, (have a carpet jack downstairs of you!), take a walk outside with one foot on the curb and the other on the street, sit on a ball and hula- anything that's upright and putting your pelvis in open, asymmetrical positions. Spend at least 30 minutes doing this one as well to give your baby a chance to move down. If you are lunging or stair or curb walking, you should lunge/walk/go up stairs in the direction that feels better to you. The ferrara with the lunge is that the toes of the higher leg and mom's belly button should be at right angles. Do not lunge over your knee, that closes the pelvis. Loly Benjamin: Circuit Creator - [email or web address].[email or web address] Akua Cool CD, BDT (SUPRIYA), LCCE, FACCE: Supporting Content - www.[employer].[facility] Reenafredrick Castaneda Harry: Photography - www.[email or web address] martinwnphoto.[facility] Raquelabner Lewis CD/CDT (NURA): Print and Is Architect - www.Piqniq.[employer] Masterminds [employer] www.Iizuu SEQUENTIAL SCREENINGS The [facility] offers sequential screenings for women who are interested in screenings for chromosomal abnormalities and certain defects during a . The sequential screen combines ultrasound and blood tests to determine the risk of chromosomal abnormalities, including Down's Syndrome (Trisomy 21) and Trisomy 18, as well as open neural tube defects including spina bifida. Ultrasound examination is performed between 11 weeks and 13 weeks gestational age. Blood tests are drawn after the ultrasound and again later in the between 15 and 21 weeks gestational age. Please let your physician know if you are interested in this testing. It will require an appointment with our library media technician. This is not an ultrasound performed by a physician in our office during a routine visit. SIGNS AND SYMPTOMS OF LABOR 1. Contractions every 10 minutes or more often 2. Clear, pink, or brownish fluid (water) leaking from vagina 3. Feeling that baby is pushing down, pressure 4. Low, dull backache 5. Cramps that feel like a period 6. Cramps with or without diarrhea If you notice any of the above symptoms, contact our office at [phone] and ask to speak with a nurse. After hours, you can call doctors registry at [phone] OR call [facility] at [phone] and ask to have the doctor air traffic control equipment repairer paged. If you consider this an emergency, dial 9-1-1 or go to your nearest emergency department. NEED HELP? Are you dealing with a violent or abusive relationship? Are you a victim of rape or sexual assult? Call [facility] ([facility] 24 hour Crisis Hotline: 950.547.4708 or 714-953-4119. MANUAL Your Guide to a Healthy manual is now on-line. Visit [email or web address] to download your free copy documented in this encounter [facility] 09-19-2024 Telephone encounter Note Order signed and faxed. Anabell Dunham RN [facility] 09-19-2024 Miscellaneous Notes Order signed and faxed. Anabell Dunham RN Breast pump order received from [employer]. To RR to sign. Anabell Dunham RN documented in this encounter [facility] 09-19-2024 Telephone encounter Note Breast pump order received from [employer]. To RR to sign. Anabell Dunham RN [facility] 09-07-2024 Progress note Formatting of t his note might be different from the original. RR- VB No. LOF No. CTXS No. Movement: present. Other c/o: some LE edema, wearing compression stockings, constant HAs, no changes w/ them, tylenol w/ some relief Medication list reviewed. SENSITIVE EXAM: Sensitive exam not performed. Physical Exam See Flow Sheet Abd: soft, nontender, gravid Ext: edema: 2+, symetrical: Yes, DTRS: 2+, clonus: Absent A/P 32w5d Estimated Date of Delivery: 10/28/24 Assessment & Plan Supervision of high risk in third trimester (HCC) 32 weeks gestation of (HCC) Edema during in third trimester (HCC) no evidence of preeclampsia cont. symptomatic measures BHATT, intermittent, no evidence of preeclampsia, cont. symptomatic measures- massage, cold, peppermint, tylenol prn. Call if worsens or signs/symptoms of preelcampsia Alexandra Mullins M.D. [facility] 09-07-2024 Miscellaneous Notes RR- VB No. LOF No. CTXS No. Movement: present. Other c/o: some LE edema, wearing compression stockings, constant HAs, no changes w/ them, tylenol w/ some relief Medication list reviewed. SENSITIVE EXAM: Sensitive exam not performed. Physical Exam See Flow Sheet Abd: soft, nontender, gravid Ext: edema: 2+, symetrical: Yes, DTRS: 2+, clonus: Absent A/P 32w5d Estimated Date of Delivery: 10/28/24 Assessment & Plan Supervision of high risk in third trimester (HCC) 32 weeks gestation of (HCC) Edema during in third trimester (HCC) no evidence of preeclampsia cont. symptomatic measures BHATT, intermittent, no evidence of preeclampsia, cont. symptomatic measures- massage, cold, peppermint, tylenol prn. Call if worsens or signs/symptoms of preelcampsia Alexandra Mullins M.D. documented in this encounter [facility] 09-07-2024 Instructions Bria Atwood MA - 09/07/2024 3:08 PM EDT SEQUENTIAL SCREENINGS The [facility] offers sequential screenings for women who are interested in screenings for chromosomal abnormalities and certain defects during a . The sequential screen combines ultrasound and blood tests to determine the risk of chromosomal abnormalities, including Down's Syndrome (Trisomy 21) and Trisomy 18, as well as open neural tube defects including spina bifida. Ultrasound examination is performed between 11 weeks and 13 weeks gestational age. Blood tests are drawn after the ultrasound and again later in the between 15 and 21 weeks gestational age. Please let your physician know if you are interested in this testing. It will require an appointment with our library media technician. This is not an ultrasound performed by a physician in our office during a routine visit. SIGNS AND SYMPTOMS OF LABOR 1. Contractions every 10 minutes or more often 2. Clear, pink, or brownish fluid (water) leaking from vagina 3. Feeling that baby is pushing down, pressure 4. Low, dull backache 5. Cramps that feel like a period 6. Cramps with or without diarrhea If you notice any of the above symptoms, contact our office at [phone] and ask to speak with a nurse. After hours, you can call doctors registry at [phone] OR call [facility] at [phone] and ask to have the doctor air traffic control equipment repairer paged. If you consider this an emergency, dial 0-1-8 or go to your nearest emergency department. NEED HELP? Are you dealing with a violent or abusive relationship? Are you a victim of rape or sexual assult? Call [facility] ([place]) 24 hour Crisis Hotline: 183.444.8811 or 463-646-6296. MANUAL Your Guide to a Healthy manual is now on-line. Visit [email or web address] to download your free copy documented in this encounter [facility] 08-24-2024 Note HNO ID: [id number] Author: REENA TELLES APRN.DEMOLITION SPECIALIST Service: ? Author Type: Nurse Practitioner Type: Progress Notes Filed: 08/24/2024 15:57 Note Text: EH - S: Reena is a 29 year old female who presents at 30w5d for a routine visit. Feeling movement. Denies headache, visual changes, chest pain, shortness of breath, vaginal bleeding, leakage of fluid, or dysuria. Feeling well, no complaints. O: See flow sheet Gen: No apparent distress Abd: Gravid, nontender, S=D ASSESSMENT/PLAN: 1. Supervision of high risk in third trimester ([facility]) - ICD9: V23.9, ICD10: O09.93 (primary diagnosis) - Continue LDA and PNV 2. 30 weeks gestation of (HCC) - ICD9: V22.2, ICD10: Z3A.30 - Reviewed 28 week labs - Declines TDAP 3. Obesity affecting in third trimester, unspecified obesity type (HCC) - ICD9: 649.13, ICD10: O99.213 - Pre BMI 34 PTL precautions and kick counts reviewed. RTO in 2 weeks or sooner as needed. Reena Telles APRN.CHRIS [facility] 08-17-2024 Telephone encounter Note Last OV 08/10/24. w5d Requested Prescriptions Pending Prescriptions Disp Refills Magnesium Oxide 420 mg tab 100 tablet 3 Sig: Take 1 tablet by mouth once daily. pantoprazole DR (PROTONIX) 40 mg tablet 30 tablet 1 Sig: Take 1 tablet by mouth once daily. Mame Durbin, RN [facility] 08-17-2024 Miscellaneous Notes Last OV 08/10/24. wd Requested Prescriptions Pending Prescriptions Disp Refills Magnesium Oxide 420 mg tab 100 tablet 3 Sig: Take 1 tablet by mouth once daily. pantoprazole DR (PROTONIX) 40 mg tablet 30 tablet 1 Sig: Take 1 tablet by mouth once daily. Mame Durbin, RN documented in this encounter [facility] 08-15-2024 Note HNO ID: [id number] Author: VANDANA SMITH APRN.CNM Service: ? Author Type: Dental Assistant Instructor Type: Progress Notes Filed: 08/15/2024 18:09 Note Text: Seen in LANDD triage. Positive UA. Macrobid 100mg PO once given and will send prescription for remainder of treatment. Vandana Smith APRN.CNM [facility] 08-15-2024 History of Present illness Narrative Seen in L&D triage. Positive UA. Macrobid 100mg PO once given and will send prescription for remainder of treatment. Vandana Smith APRN.CNM documented in this encounter [facility] 08-10-2024 Progress note Formatting of t his note might be different from the original. PABLO-S: Reena Jama is a 29 year old female who presents at 28w5d with JUDD:10/28/2024, by Last Menstrual Period for a routine visit. Denies headache, visual changes, chest pain, shortness of breath, vaginal bleeding, leakage of fluid, or dysuria. Feeling well, no complaints. O: See flow sheet Gen: No apparent distress Abd: Gravid, nontender ASSESSMENT/PLAN: 1. Supervision of high risk in third trimester - 1 hour GCT, CBC, and RPR today - O positive - TDAP declines today, may consider next visit - LARC form reviewed and signed. Patient declines - Depression screen negative - Opioid screen negative - plan form discussed and given to patient. Patient desires unmedicated , handout given on waterbirth as she is interested 2. 28 weeks gestation of 3. Penicillin allergy - CONSULT TO PENICILLIN ALLERGY 4. Other obesity affecting in third trimester -Pregravid BMI 34, no testing PTL precautions reviewed and when to call RTO in 2 weeks Vandana Smith APRN.CNM [facility] 08-10-2024 Miscellaneous Notes PABLO-S: Reena Jama is a 29 year old female who presents at 28w5d with JUDD:10/28/2024, by Last Menstrual Period for a routine visit. Denies headache, visual changes, chest pain, shortness of breath, vaginal bleeding, leakage of fluid, or dysuria. Feeling well, no complaints. O: See flow sheet Gen: No apparent distress Abd: Gravid, nontender ASSESSMENT/PLAN: 1. Supervision of high risk in third trimester - 1 hour GCT, CBC, and RPR today - O positive - TDAP declines today, may consider next visit - LARC form reviewed and signed. Patient declines - Depression screen negative - Opioid screen negative - plan form discussed and given to patient. Patient desires unmedicated , handout given on waterbirth as she is interested 2. 28 weeks gestation of 3. Penicillin allergy - CONSULT TO PENICILLIN ALLERGY 4. Other obesity affecting in third trimester -Pregravid BMI 34, no testing PTL precautions reviewed and when to call RTO in 2 weeks Vandana Smith APRN.CNM documented in this encounter [facility] 08-10-2024 Instructions Vandana Smith APRN.CNM - 08/10/2024 11:10 AM EDT Call to make Penicillin allergy consult: Please call [phone] to set up an urgent consult. Headache Prevention: 1) Magnesium citrate 400mg at bedtime 2) Riboflavin 400mg by mouth once daily 3) CoQ10 100mg by mouth once daily 4) critical care cns 5) Massage therapy SIGNS AND SYMPTOMS OF LABOR 1. Contractions every 10 minutes or more often 2. Clear, pink, or brownish fluid (water) leaking from vagina 3. Feeling that baby is pushing down, pressure 4. Low, dull backache 5. Cramps that feel like a period 6. Cramps with or without diarrhea If you notice any of the above symptoms, contact our office at [phone] and ask to speak with a nurse. After hours, you can call doctors registry at [phone] OR call [facility] at [phone] and ask to have the doctor air traffic control equipment repairer paged. If you consider this an emergency, dial 9-1- or go to your nearest emergency department. NEED HELP? Are you dealing with a violent or abusive relationship? Are you a victim of rape or sexual assult? Call [facility] 24 hour Crisis Hotline: 515.155.9707 or 226-009-9850. MANUAL Your Guide to a Healthy manual is now on-line. Visit [email or web address] Christie to download your free copy [facility] [address] [place] [id number] [facility] [address] [place] [address] [facility] [address] [place] [address] [facility] [address] [place] [address] [email or web address] [address] [place] [address] [facility] [address] [facility] [place] [place] [address] [email or web address] [address] [facility], [place] [address] [email or web address] [facility] [phone] [facility] [address] [place] [address] [facility] [address] [address] [facility] [place] office also [phone] [email or web address]/ [facility] [phone] [facility] [address]. [address] [place] [address] [facility], [facility] [address] [place] [address] [email or web address] [address] [place] [address] [email or web address] Why will I have pain in labor and how bad will it be? During labor, you will have pain as your uterus (womb) pushes your baby down and your cervix (the opening of your uterus) and vagina stretch and open. The kind and amount of pain you have changes throughout your labor. Labor pain is different for each woman, and nobody knows ahead of time how painful their labor will be. What pain management methods can I use during labor? Lots of things can help you cope with labor pain such as having a support person, massage, changing positions, making a noise during contractions, resting between contractions, and being in a bath or shower. You can also use pain medications to help you cope with labor pain. You can be given pain medication through an IV, nitrous oxide (laughing gas) that you breathe through a mask, or an epidural that takes away most of the pain. How does IV pain medication work? The IV pain medication is given into your vein. It takes about 10 minutes to start working. IV medications block the pain signal from getting to your brain. These drugs also make you not care that you are sensing pain. If I choose IV pain medication, what type will be used? The IV pain medications are all similar to morphine and are from the family of drugs called opiates. Some last longer than others. Morphine lasts about 4 hours and is usually given early in labor. Fentanyl is the shortest acting IV pain medication and lasts for about an hour, but you can get several doses of it. An in?between type of IV pain medication called Stadol or Nubain lasts for a few hours and is usually only given for one or 2 doses. How does nitrous oxide work? A gas mixture that is made of half nitrous oxide and half oxygen is hooked up to a mask. Whenever you breathe into the mask, you breathe the gas. It works in about 30 seconds, and the effect goes away a few seconds after you stop breathing the gas. We are not certain how nitrous oxide works, but it is likely that it blocks the feeling of pain in your brain. It also makes you not care that you are sensing pain. How does an epidural work? After you are given some extra fluid through an IV, a very small area on the skin of your back will be numbed. A needle is then placed through this area into a place between the bones of your spine. A small plastic catheter is placed through this needle. The catheter puts a small amount of anesthetic (numbing) medication in an area next to your spinal cord where the nerves from your uterus and legs come into your spine. This medicine blocks the pain signal from getting to your brain. It also blocks your ability to urinate and walk. The catheter is hooked to a pump, which delivers medicine through the catheter throughout your labor. Will using pain medication in labor affect my labor progress? Morphine can slow your labor if it is given very early in labor. It can be used to stop very early labor contractions that are sometimes called false labor. Often after the morphine wears off, your active labor will start. The other IV pain medications such as Fentanyl, Stadol, or Nubain do not affect your labor progress, and morphine will not stop your labor progress if given when you are in active labor. Nitrous oxide does not have any effect on your labor progress. An epidural may make your pushing stage of labor longer, and women who have an epidural are more likely to need Pitocin to make contractions stronger. Will using pain medication in labor affect my baby? All 3 types of labor pain medications have been used for a very long time for women in labor, and none of them are known to cause serious problems for babies. The IV pain medications can only be given in early and active labor. They are not used during the pushing stage of labor because they can make your baby sleepy if they are given too close to the time of . Nitrous oxide can be used anytime during labor and for the whole labor if you want it. There are no known side effects for your baby from using nitrous oxide. An epidural increases your chance of needing forceps or a vacuum to help give . Babies can have some bruising on their heads from the forceps or vacuum. The epidural also increases the chance that you will get a fever in labor. If this happens, there is a higher chance that your baby will need some blood drawn and/or to be watched in the nursery. An epidural does not increase the chance that your baby has an infection, but your baby will need to be watched closely to make sure your fever was not from an infection. What are the pros and cons of each available pain medication? Medication Pros Cons IV Pain Medication These drugs help women who do not want an epidural and just need some medication in early or active labor to help take the edge off the pain. You can walk and move around as long as you are not too tired. They lessen the pain some but do not take it all away. You need an IV to get these drugs. They cannot be used late in labor. They may cause sleepiness, nausea, and/or itching. Nitrous Oxide You can breathe in the nitrous oxide whenever you want it so you manage your pain control. It can be used at any time during labor up until you give . You do not need an IV. Some women do not like the feeling of a mask on their face. Some women have a strange feeling with nitrous oxide that they do not like. Epidural An epidural is the best way to take away most of the pain. Some hospitals set up the epidural so you can push a button to get more medication when you need it. You need an IV and usually have a catheter in your bladder. You won't be able to stand and walk around easily because the epidural takes away some feeling in your legs. It may take longer for you to push out your baby. You are more likely to need forceps or a vacuum to help your baby come out. Some women have a small area on their leg or abdomen that does not get pain relief from the epidural. If this happens, that one small spot will continue to be painful. For More Information Childbirth Connection: Options for relieving labor pain. http://www.[email or web address].or g/article.asp?[email or web address]&[email or web address] 0185&area=27 Flesch?Kaiden Grade Level: 6.9 Approved May 2015. This handout and Coping with Labor Pain, which is also published in this issue, replace Pain during Childbirth published in Volume 49, Issue 6, April 2004. documented in this encounter [facility] 07-15-2024 Note Indication Follow-up evaluation to complete anatomic survey Maternal obesity, BMI >30 Impression REMOTE READ The patient is referred for completion of the anatomic survey. - Single, live, intrauterine . - No malformations were visualized on a follow-up anatomic survey. - Anatomic survey was completed today. - The EFW is 768 g, at the 43%. AC is at the 59%. - The amniotic fluid volume is normal amount. - The placenta is anterior, fundal. - Not all structural malformations can be detected by ultrasound examination. Recommendations Additional follow-up as clinically indicated. Maternal Assessment Height 168 cm Height (ft) 5 ft Height (in) 6 in Physical Exam Initial weight (lb) 212 lb Initial BMI 34.22 kg/m Maternal assessment other: 2 Para 1 Method Transabdominal ultrasound examination. View: Suboptimal view: limited by position Wade . Number of fetuses: 1 Dating LMP on: 01/22/2024 GA by LMP 25 w + 0 d JUDD by LMP: 10/28/2024 GA by prior assessment 25 w + 0 d JUDD by prior assessment: 10/28/2024 Ultrasound examination on: 07/15/2024 GA by U/S based upon: AC, BPD, Femur, HC GA by U/S 24 w + 6 d JUDD by U/S: 10/29/2024 Assigned: based on stated JUDD, selected on 07/15/2024 Assigned GA 25 w + 0 d Assigned JUDD: 10/28/2024 General Evaluation Cardiac activity present. FHR 145 bpm. movements: present. Presentation: breech Placenta: Placental site: anterior, fundal Umbilical cord: Cord vessels: 3 vessel cord Amniotic fluid: Amount of AF: normal amount. MVP 6.6 cm. ALPHONSO 18.4 cm. Q1 4.3 cm, Q2 4.6 cm, Q3 3.0 cm, Q4 6.6 cm Growth Overview Exam date GA BPD (mm) HC (mm) AC (mm) FL (mm) HL (mm) EFW (g) 06/14/2024 20w 4d 47.5 40% 182.2 51% 161.9 67% 31.5 34% 31.9 53% 364 45% 07/15/2024 25w 0d 59.7 21% 229.6 44% 210.2 59% 43.9 48% 768 43% Biometry Standard BPD 59.7 mm 24w 3d 21% Hadlock OFD 83.2 mm 25w 0d 67% Nicolaides HC 229.6 mm 24w 5d 44% Jovany AC 210.2 mm 25w 4d 59% Hadlock Femur 43.9 mm 24w 4d 48% Jovany EFW 768 g 24w 6d 43% Hadlock EFW (lb) 1 lb EFW (oz) 11 oz EFW by: Hadlock (HC-AC-FL) Extended Hoist Operator 6.1 mm Extremities / Bony Struc FL / HC 0.19 Other Structures FHR 145 bpm Anatomy Lateral ventricles: normal Cavum septi pellucidi: normal Cerebellum: normal Cisterna magna: normal 4-chamber view: normal RVOT view: normal LVOT view: normal 3-vessel view: normal Heart / Thorax Situs: situs solitus (normal) Diaphragm: suboptimal Stomach: normal Kidneys: normal Bladder: normal Cervical spine: normal Thoracic spine: normal Lumbar spine: normal Sacral spine: normal sex: male Wants to know sex: yes Performed By: Jenna Ferrell RDMS, RVT Read By: Silvia Mcgee M.D. [facility] 07-15-2024 Progress note Formatting of t his note might be different from the original. RR- VB No. LOF No. CTXS No. Movement: present. Other c/o: No. Medication list reviewed. SENSITIVE EXAM: Sensitive exam not performed. Physical Exam See Flow Sheet Abd: soft, nontender, gravid A/P 25w0d Estimated Date of Delivery: 10/28/24 Assessment & Plan Screening for diabetes mellitus Orders: GESTATIONAL GLUCOSE SCREEN, 1-HOUR, 50 GRAM, NON-FASTING; Future Encounter for supervision of high risk in second trimester, antepartum Orders: SYPHILIS TREPONEMAL W/REFLEX; Future ANEMIA REFLEX PANEL; Future Obesity affecting in first trimester, unspecified obesity type Penicillin allergy 25 weeks gestation of Orders: SYPHILIS TREPONEMAL W/REFLEX; Future ANEMIA REFLEX PANEL; Future 28 week labs next visit f/u in 4 weeks or prn cont PNV f/u anatomy completed today Alexandra Mullins M.D. [facility] 07-15-2024 Miscellaneous Notes RR- VB No. LOF No. CTXS No. Movement: present. Other c/o: No. Medication list reviewed. SENSITIVE EXAM: Sensitive exam not performed. Physical Exam See Flow Sheet Abd: soft, nontender, gravid A/P 25w0d Estimated Date of Delivery: 10/28/24 Assessment & Plan Screening for diabetes mellitus Orders: GESTATIONAL GLUCOSE SCREEN, 1-HOUR, 50 GRAM, NON-FASTING; Future Encounter for supervision of high risk in second trimester, antepartum Orders: SYPHILIS TREPONEMAL W/REFLEX; Future ANEMIA REFLEX PANEL; Future Obesity affecting in first trimester, unspecified obesity type Penicillin allergy 25 weeks gestation of Orders: SYPHILIS TREPONEMAL W/REFLEX; Future ANEMIA REFLEX PANEL; Future 28 week labs next visit f/u in 4 weeks or prn cont PNV f/u anatomy completed today Alexandra Mullins M.D. documented in this encounter [facility] 07-15-2024 Instructions Aidan Kemp MA - 07/15/2024 4:04 PM EDT SEQUENTIAL SCREENINGS The [facility] offers sequential screenings for women who are interested in screenings for chromosomal abnormalities and certain defects during a . The sequential screen combines ultrasound and blood tests to determine the risk of chromosomal abnormalities, including Down's Syndrome (Trisomy 21) and Trisomy 18, as well as open neural tube defects including spina bifida. Ultrasound examination is performed between 11 weeks and 13 weeks gestational age. Blood tests are drawn after the ultrasound and again later in the between 15 and 21 weeks gestational age. Please let your physician know if you are interested in this testing. It will require an appointment with our library media technician. This is not an ultrasound performed by a physician in our office during a routine visit. SIGNS AND SYMPTOMS OF LABOR 1. Contractions every 10 minutes or more often 2. Clear, pink, or brownish fluid (water) leaking from vagina 3. Feeling that baby is pushing down, pressure 4. Low, dull backache 5. Cramps that feel like a period 6. Cramps with or without diarrhea If you notice any of the above symptoms, contact our office at [phone] and ask to speak with a nurse. After hours, you can call [facility] at [phone] OR call [facility] at [phone] and ask to have the doctor air traffic control equipment repairer paged. If you consider this an emergency, dial 9-1-1 or go to your nearest emergency department. NEED HELP? Are you dealing with a violent or abusive relationship? Are you a victim of rape or sexual assult? Call [facility] ([place]) 24 hour Crisis Hotline: 843.918.5101 or 953-758-6568. MANUAL Your Guide to a Healthy manual is now on-line. Visit [email or web address] Christie to download your free copy documented in this encounter [facility] 06-15-2024 Telephone encounter Note Patient notified and scheduled. Anabell Dunham RN [facility] 06-15-2024 Miscellaneous Notes Patient notified and scheduled. Anabell Dunham RN Left message to call office. Please file pended order. Jenna Castellanos RN Reviewed. Please add to record. Needs follow up in anatomy in 2-4 weeks. Reena Telles APRN.DEMOLITION SPECIALIST documented in this encounter [facility] 06-15-2024 Telephone encounter Note Left message to call office. Please file pended order. Jenna Castellanos RN [facility] 06-15-2024 Telephone encounter Note Reviewed. Please add to record. Needs follow up in anatomy in 2-4 weeks. Reena Telles APRN.CHRIS [facility] 06-14-2024 Progress note Formatting of t his note might be different from the original. S: Reena Jama is a 28 year old female who presents at 10/28/2024, by Last Menstrual Period for a routine visit. Denies headache, visual changes, chest pain, shortness of breath, vaginal bleeding, leakage of fluid, or dysuria. Feeling well, no complaints. Good movement, No contractions O: See flow sheet Gen: No apparent distress Abd: Gravid, nontender Its a BOY!. Jerel whittaker said girl ASSESSMENT/PLAN: 1. 20 weeks gestation of - ICD9: V22.2, ICD10: Z3A.20 (primary diagnosis) 2. Encounter for supervision of high risk in first trimester, antepartum - ICD9: V23.9, ICD10: O09.91 3. Obesity affecting in first trimester, unspecified obesity type - ICD9: 649.13, ICD10: O99.211 Rachel Mcintosh MD [facility] 06-14-2024 Miscellaneous Notes S: Reena Jama is a 28 year old female who presents at 10/28/2024, by Last Menstrual Period for a routine visit. Denies headache, visual changes, chest pain, shortness of breath, vaginal bleeding, leakage of fluid, or dysuria. Feeling well, no complaints. Good movement, No contractions O: See flow sheet Gen: No apparent distress Abd: Gravid, nontender Its a BOY!. Jerel whittaker said girl ASSESSMENT/PLAN: 1. 20 weeks gestation of - ICD9: V22.2, ICD10: Z3A.20 (primary diagnosis) 2. Encounter for supervision of high risk in first trimester, antepartum - ICD9: V23.9, ICD10: O09.91 3. Obesity affecting in first trimester, unspecified obesity type - ICD9: 649.13, ICD10: O99.211 Rachel Mcintosh MD documented in this encounter [facility] 06-14-2024 Instructions Stormy Martinez MA - 06/14/2024 3:20 PM EST SEQUENTIAL SCREENINGS The [facility] offers sequential screenings for women who are interested in screenings for chromosomal abnormalities and certain defects during a . The sequential screen combines ultrasound and blood tests to determine the risk of chromosomal abnormalities, including Down's Syndrome (Trisomy 21) and Trisomy 18, as well as open neural tube defects including spina bifida. Ultrasound examination is performed between 11 weeks and 13 weeks gestational age. Blood tests are drawn after the ultrasound and again later in the between 15 and 21 weeks gestational age. Please let your physician know if you are interested in this testing. It will require an appointment with our library media technician. This is not an ultrasound performed by a physician in our office during a routine visit. SIGNS AND SYMPTOMS OF LABOR 1. Contractions every 10 minutes or more often 2. Clear, pink, or brownish fluid (water) leaking from vagina 3. Feeling that baby is pushing down, pressure 4. Low, dull backache 5. Cramps that feel like a period 6. Cramps with or without diarrhea If you notice any of the above symptoms, contact our office at [phone] and ask to speak with a nurse. After hours, you can call doctors registry at [phone] OR call [facility] at [phone] and ask to have the doctor air traffic control equipment repairer paged. If you consider this an emergency, dial 9-1-1 or go to your nearest emergency department. NEED HELP? Are you dealing with a violent or abusive relationship? Are you a victim of rape or sexual assult? Call [facility] ([place]) 24 hour Crisis Hotline: 780.157.5419 or 090-562-6955. MANUAL Your Guide to a Healthy manual is now on-line. Visit [email or web address] to download your free copy documented in this encounter [facility] 05-17-2024 Progress note Formatting of t his note might be different from the original. KJ - VB No. LOF No. CTXS No. Movement: present. Other c/o: heartburn that is not relieved by Tums or Pepcid Medication list reviewed. Physical Exam See Flow Sheet Gen: no accute distress, well appearing Abd: soft, nontender, gravid A/P 16w4d Estimated Date of Delivery: 10/28/24 Heartburn - Protonix given Discussed healthy weight gain in Anatomy US scheduled Mekhi Wen MD [facility] 05-17-2024 Miscellaneous Notes KJ - VB No. LOF No. CTXS No. Movement: present. Other c/o: heartburn that is not relieved by Tums or Pepcid Medication list reviewed. Physical Exam See Flow Sheet Gen: no accute distress, well appearing Abd: soft, nontender, gravid A/P 16w4d Estimated Date of Delivery: 10/28/24 Heartburn - Protonix given Discussed healthy weight gain in Anatomy US scheduled Mekhi Wen MD documented in this encounter [facility] 05-17-2024 Instructions Stormy Martinez MA - 05/17/2024 3:43 PM EST SEQUENTIAL SCREENINGS The [facility] offers sequential screenings for women who are interested in screenings for chromosomal abnormalities and certain defects during a . The sequential screen combines ultrasound and blood tests to determine the risk of chromosomal abnormalities, including Down's Syndrome (Trisomy 21) and Trisomy 18, as well as open neural tube defects including spina bifida. Ultrasound examination is performed between 11 weeks and 13 weeks gestational age. Blood tests are drawn after the ultrasound and again later in the between 15 and 21 weeks gestational age. Please let your physician know if you are interested in this testing. It will require an appointment with our library media technician. This is not an ultrasound performed by a physician in our office during a routine visit. SIGNS AND SYMPTOMS OF LABOR 1. Contractions every 10 minutes or more often 2. Clear, pink, or brownish fluid (water) leaking from vagina 3. Feeling that baby is pushing down, pressure 4. Low, dull backache 5. Cramps that feel like a period 6. Cramps with or without diarrhea If you notice any of the above symptoms, contact our office at [phone] and ask to speak with a nurse. After hours, you can call doctors registry at [phone] OR call [facility] at [phone] and ask to have the doctor air traffic control equipment repairer paged. If you consider this an emergency, dial --1 or go to your nearest emergency department. NEED HELP? Are you dealing with a violent or abusive relationship? Are you a victim of rape or sexual assult? Call [facility] ([place]) 24 hour Crisis Hotline: 733.798.2849 or 000-039-3588. MANUAL Your Guide to a Healthy manual is now on-line. Visit [email or web address] to download your free copy documented in this encounter [facility] 04-19-2024 Progress note Formatting of t his note might be different from the original. KJ - VB No. LOF No. CTXS No. Movement: present. Other c/o: Intermittent headaches. Medication list reviewed. Physical Exam See Flow Sheet Gen: no accute distress, well appearing Abd: soft, nontender, gravid TAUS - active fetus with fca A/P 12w4d Estimated Date of Delivery: 10/28/24 Declines NT & aneuploidy screening Headaches - advised on magnesium and headache precautions PNB today Schedule anatomy US Mekhi Wen MD [facility] 04-19-2024 Miscellaneous Notes KJ - VB No. LOF No. CTXS No. Movement: present. Other c/o: Intermittent headaches. Medication list reviewed. Physical Exam See Flow Sheet Gen: no accute distress, well appearing Abd: soft, nontender, gravid TAUS - active fetus with fca A/P 12w4d Estimated Date of Delivery: 10/28/24 Declines NT & aneuploidy screening Headaches - advised on magnesium and headache precautions PNB today Schedule anatomy US Mekhi Wen MD documented in this encounter [facility] 04-19-2024 Instructions Stormy Martinez MA - 04/19/2024 2:20 PM EST SEQUENTIAL SCREENINGS The [facility] offers sequential screenings for women who are interested in screenings for chromosomal abnormalities and certain defects during a . The sequential screen combines ultrasound and blood tests to determine the risk of chromosomal abnormalities, including Down's Syndrome (Trisomy 21) and Trisomy 18, as well as open neural tube defects including spina bifida. Ultrasound examination is performed between 11 weeks and 13 weeks gestational age. Blood tests are drawn after the ultrasound and again later in the between 15 and 21 weeks gestational age. Please let your physician know if you are interested in this testing. It will require an appointment with our library media technician. This is not an ultrasound performed by a physician in our office during a routine visit. SIGNS AND SYMPTOMS OF LABOR 1. Contractions every 10 minutes or more often 2. Clear, pink, or brownish fluid (water) leaking from vagina 3. Feeling that baby is pushing down, pressure 4. Low, dull backache 5. Cramps that feel like a period 6. Cramps with or without diarrhea If you notice any of the above symptoms, contact our office at [phone] and ask to speak with a nurse. After hours, you can call doctors registry at [phone] OR call [facility] at [phone] and ask to have the doctor air traffic control equipment repairer paged. If you consider this an emergency, dial 9-7-1 or go to your nearest emergency department. NEED HELP? Are you dealing with a violent or abusive relationship? Are you a victim of rape or sexual assult? Call [facility] ([place]) 24 hour Crisis Hotline: 776.389.8116 or 112-931-9105. MANUAL Your Guide to a Healthy manual is now on-line. Visit [email or web address] to download your free copy documented in this encounter [facility] 03-15-2024 Note HNO ID: [id number] Author: NOVAEDWIN MANNILYCHRISTOPHER.DEMOLITION SPECIALIST Service: ? Author Type: Nurse Practitioner Type: Progress Notes Filed: 03/21/2024 11:42 Note Text: Transplant Surgeon offered: Patient declines. INITIAL OB ASSESSMENT HPI: Reena is a 28 year old White Female here to establish Obstetrical Care. Patient's last menstrual period was 01/22/2024. from OB Dating Form. was planned Complaints: No OB History T1 L1 SAB0 IAB0 Ectopic0 Multiple0 Live Births1 Previous history: Prior : never History of 4th degree laceration: No History of shoulder dystocia: No History of Hypertensive disorders including pre-eclampsia or gestational hypertension: No History of gestational diabetes: No Patient's Risk Screening for delivery: Have you had a prior wade between 20w and 36w6d? No How many pregnancies have you had before? 1 Did you have a previous baby with a GBS Infection? No Please select all that apply for any prior : N/A MEDICAL/PSYCHOSOCIAL HISTORY: History of hemorrhage or bleeding concerns: No Thyroid Disease: No History of chronic hypertension: No History of pre-existing diabetes: No No results found for: ABORHD BMI 34.22 kg/(m2) Last Pap: History of abnormal pap: No Prior treatment for cervical dysplasia: none. Last HPV: History of STDs: None Partner History of STDs: None Did you have a partner with Herpes? No Tobacco use: No E-Cigarette/Vaping Use: No Caffeine use: Yes Drug use: No Alcohol use: No Multivitamin with Folic acid: Yes Would refuse blood transfusion if medically necessary: No Social Needs: How often does this describe you? I don't have enough money to pay my bills: Sometimes Within the past 12 months, have you worried that your food would run out before you had money to buy more? Never In the past 12 months, has lack of reliable transportation kept you from going to medical appointments or work, or from getting things needed for daily living? Never In the past 12 months, have you had any concerns about having a place to live, or about the condition or quality of your housing? Never Would you like more information on any of the following (please check all that apply)? Not interested Social History: Do you have any history of depression, anxiety, PTSD, or other mood problems? No Do you have a history of abuse or trauma that may impact your experience? No Are you currently employed? Yes Depression/Anxiety Screening: denies symptoms of depression. OB Depression and Anxiety Screening- This Encounter (since 03/20/2024) Over the past 2 weeks have you felt down, depressed, or hopeless? Negative Over the past two weeks, have you felt little interest or pleasure in doing things?? Negative Feeling nervous, anxious or on edge 0-Not at all Not being able to stop or control worrying 0-Not al all Anxiety Pre-Screening Total (If >/= 3 additional questions will be reviewed) 0 Genetic Screening: Partner present: No Patient verbalized knowledge of partner family health history: Yes Do you or your partner have any personal or family history of defects not previously discussed: No Do you have history of a complicated by anomaly, genetic condition, or demise: No Preeclampsia Risk Screening: Screening for prevention of preeclampsia: High risk factors: None Moderate risk ractors: Obesity (body mass index greater than 30) OB Risk Screening: Completed, no positive findings documented. 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 No pertinent past medical history. PAST SURGICAL HISTORY Procedure Laterality Date TONSILLECTOMY AND ADENOIDECTOMY Tonsillectomy only TOOTH EXTRACTION Jonancy Current Outpatient Medications Medication Sig Dispense Refill vit/iron fum/folic ac ( TABLET ORAL) Take 1 tablet by mouth once daily. No current facility-administered medications for this visit. Allergies As of Date: 03/21/2024 Allergen Noted Reaction PENICILLIN 03/15/2024 Hives Fully Assessed 03/21/2024 Does patient have penicillin allergy: Yes, plan for allergy testing. REVIEW OF SYSTEMS: GENERAL: Negative for: Fever or Chills HEENT: Negative for: Headache, Impaired Vision, Ringing in Ears, Nosebleeds NECK: Negative for: Swelling, Pain, Stiffness RESPIRATORY: Negative for: Cough, Shortness of breath, Wheezing GASTROINTESTINAL: Negative for: Diarrhea, Blood in stool + nausea, constipation, heartburn MUSCULOSKELETAL: Negative for: Muscle or joint pain, stiffness, Joint swelling NEUROLOGIC/PSYCHIATRIC: Negative for: Weakness, Paralysis, Numbness, Tingling, Tremor, Anxiety, Depression, Memory loss SKIN: Negative for: Rash, Itching GENITOURINARY: Negative for: vaginal itching, vaginal discharge, hematuria or dysuria S (more content not included)... [facility] 03-15-2024 History of Present illness Narrative Transplant Surgeon offered: Patient declines. INITIAL OB ASSESSMENT HPI: Reena is a 28 year old White Female here to establish Obstetrical Care. Patient's last menstrual period was 01/22/2024. from OB Dating Form. was planned Complaints: No OB History T1 L1 SAB0 IAB0 Ectopic0 Multiple0 Live Births1 Previous history: Prior : never History of 4th degree laceration: No History of shoulder dystocia: No History of Hypertensive disorders including pre-eclampsia or gestational hypertension: No History of gestational diabetes: No Patient's Risk Screening for delivery: Have you had a prior wade between 20w and 36w6d? No How many pregnancies have you had before? 1 Did you have a previous baby with a GBS Infection? No Please select all that apply for any prior : N/A MEDICAL/PSYCHOSOCIAL HISTORY: History of hemorrhage or bleeding concerns: No Thyroid Disease: No History of chronic hypertension: No History of pre-existing diabetes: No No results found for: ABORHD BMI 34.22 kg/(m^2) Last Pap: History of abnormal pap: No Prior treatment for cervical dysplasia: none. Last HPV: History of STDs: None Partner History of STDs: None Did you have a partner with Herpes? No Tobacco use: No E-Cigarette/Vaping Use: No Caffeine use: Yes Drug use: No Alcohol use: No Multivitamin with Folic acid: Yes Would refuse blood transfusion if medically necessary: No Social Needs: How often does this describe you? I don't have enough money to pay my bills: Sometimes Within the past 12 months, have you worried that your food would run out before you had money to buy more? Never In the past 12 months, has lack of reliable transportation kept you from going to medical appointments or work, or from getting things needed for daily living? Never In the past 12 months, have you had any concerns about having a place to live, or about the condition or quality of your housing? Never Would you like more information on any of the following (please check all that apply)? Not interested Social History: Do you have any history of depression, anxiety, PTSD, or other mood problems? No Do you have a history of abuse or trauma that may impact your experience? No Are you currently employed? Yes Depression/Anxiety Screening: denies symptoms of depression. OB Depression and Anxiety Screening- This Encounter (since 03/20/2024) Over the past 2 weeks have you felt down, depressed, or hopeless? Negative Over the past two weeks, have you felt little interest or pleasure in doing things? Negative Feeling nervous, anxious or on edge 0-Not at all Not being able to stop or control worrying 0-Not al all Anxiety Pre-Screening Total (If >/= 3 additional questions will be reviewed) 0 Genetic Screening: Partner present: No Patient verbalized knowledge of partner family health history: Yes Do you or your partner have any personal or family history of defects not previously discussed: No Do you have history of a complicated by anomaly, genetic condition, or demise: No Preeclampsia Risk Screening: Screening for prevention of preeclampsia: High risk factors: None Moderate risk ractors: Obesity (body mass index greater than 30) OB Risk Screening: Completed, no positive findings documented. 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 No pertinent past medical history. PAST SURGICAL HISTORY Procedure Laterality Date TONSILLECTOMY & ADENOIDECTOMY <AGE 12 2011 Tonsillectomy only TOOTH EXTRACTION Jonancy Current Outpatient Medications Medication Sig Dispense Refill vit/iron fum/folic ac ( TABLET ORAL) Take 1 tablet by mouth once daily. No current facility-administered medications for this visit. Allergies As of Date: 03/21/2024 Allergen Noted Reaction PENICILLIN 03/15/2024 Hives Fully Assessed 03/21/2024 Does patient have penicillin allergy: Yes, plan for allergy testing. REVIEW OF SYSTEMS: GENERAL: Negative for: Fever or Chills HEENT: Negative for: Headache, Impaired Vision, Ringing in Ears, Nosebleeds NECK: Negative for: Swelling, Pain, Stiffness RESPIRATORY: Negative for: Cough, Shortness of breath, Wheezing GASTROINTESTINAL: Negative for: Diarrhea, Blood in stool + nausea, constipation, heartburn MUSCULOSKELETAL: Negative for: Muscle or joint pain, stiffness, Joint swelling NEUROLOGIC/PSYCHIATRIC: Negative for: Weakness, Paralysis, Numbness, Tingling, Tremor, Anxiety, Depression, Memory loss SKIN: Negative for: Rash, Itching GENITOURINARY: Negative for: vaginal itching, vaginal discharge, hematuria or dysuria SENSITIVE EXAM: The sensitive examination was discussed with the Patient or Patient's Authorized Business Continuity Consultant. As applicable, any other physician, advance practice provider, medical student, or other health professional student that will be observing or involved in the sensitive examination for educational or training purposes was discussed with the Patient or Authorized Business Continuity Consultant. The Patient or Authorized Business Continuity Consultant has agreed to proceed with the sensitive examination. (Sensitive examination includes inspection and/or palpation of the breasts, pelvis, prostate and anorectal regions). PHYSICAL EXAM: BP 118/70 Ht 5' 6 (1.68m) Wt 212 lb (96.2kg) LMP 01/22/2024 BMI 34.23 kg/(m^2). GENERAL: pleasant in no apparent distress DERMATOLOGY: Normal, without lesions, non-icteric, and non-hirsute NECK: Supple, full range of motion, no adenopathy, and thyroid normal CHEST: Normal inspiratory effort BREAST: soft, non-tender, symmetric, no dominant mass, normal nipple-areolar complex, no lymphadenopathy, and no nipple discharge ABDOMEN: soft, non-tender, and no masses NEURO: alert and oriented x3,exam grossly non-focal PELVIS: External genitalia normal without lesions. Perineal body intact. No vaginal or cervical lesions. Cervix closed. Ectropic. Uterus 8 week size. No adnexal masses or tenderness. Clinical Pelvimetry: Pelvimetry clinically assessed as adequate Limited OB ultrasound exam: single intrauterine and positive cardiac activity ASSESSMENT: 28 year old at 8w3d wks gestational age PLAN: 1) Patient oriented to practice. Patient given new OB orientation folder. Discussed nutrition, folic acid supplementation, dietary guidelines, exercise, smoking, alcohol, caffeine, and drug use. Discussed gestational weight gain guidelines. Discussed routine OB labs including STD/HIV. Discussed how to access Your guide to a health and the [employer] R[employer]. Discussed hemoglobin electrophoresis. Patient: Declines Patient has penicillin allergy, plan for allergy testing. Reviewed midwifery and fire hose curer services that are available. 2) Screening: Hemoglobin A1C: ordered Baby Aspirin: The patient has been counseled about the potential benefits of low dose aspirin in and our recommendation that this be offered to all patients, regardless of whether they meet the high risk criteria specified above. She Accepts Aneuploidy Screening: Discussed aneuploidy screening, nuchal translucency/first trimester early anatomy ultrasound and NIPT. The risks/benefits and limitations of NIPT/aneuploidy screening were reviewed including the potential for false negative and false positive results. The availability of genetic counseling was reviewed. Information on aneuploidy screening was provided. The patient chooses to proceed with First trimester early anatomy ultrasound (12-13w6d) Myriad Carrier Screening: Discussed myriad carrier screening. We discussed the availability of professional-society guided carrier screening and reviewed the conditions screened and limitations of screening. The availability of genetic counseling was reviewed. Information on carrier screening was provided. The patient Declines 3) Patient offered option of Virtual Visits. Patient unsure. May consider in future. ACTIVE PROBLEM LIST Encounter for Supervision of High Risk in First Trimester, Antepartum - 03/21/2024 Comment: Care Checklist Vaccines: [] Flu vaccine [] declined [] RSV vaccine 32 0/7 - 36 6/7 (Jan - Jun) [] declined [] COVID vaccine [] declined [] TDaP 27-36 [] declined First trimester: [x] Dating US [x] 1st tri labs [x] Pap smear [] Carrier screening [x] declined [] NIPT screening [x] declined [x] First trimester anatomy scan [] declined [x] universal ASA ordered (start 12w-16w) [] declined [] M Power Consult [] not indicated [] declined Second trimester: [] AFP [] declined [] Anatomy scan [] Mode of Delivery - [] Feeding - [] Pump ordered [] Diabetes screen [] CBC, RPR Third trimester (28-30 weeks): [] Consent [] Contraception - [] Car Varnisher Third trimester (36-40 weeks): [] GBS [] Presentation - [] Scheduled [] yes - Hibiclens, pre-op instructions, CBC, T&S ordered [] no [] H&P Obesity Affecting in First Trimester - 03/21/2024 Comment: Pre BMI 34 Reena Telles APRN.CHRIS Constipation During in First Trimester - 03/21/2024 Comment: March 21, 2024 Discussed Colace and increased hydration. Reena Telles APRN.CHRIS Heartburn During in First Trimester - 03/21/2024 Comment: March 21, 2024 Discussed Tums vs Pepcid and dietary modifications. Reena Telles APRN.CNP Nausea and Vomiting During - 03/21/2024 Comment: 03/21/24 Vitamin B6 and Unisom doses reviewed. To notify if prescription is needed. Reena Telles APRN.CNP Penicillin Allergy - 03/21/2024 Comment: March 21, 2024 Has rash with Penicillin use. Consider allergy consult. Reena Telles APRN.CNP Follow up in 4 weeks or sooner prn. Plan for NT scan between 12w0d and 13w6d gestation. Reena Telles APRN.CNP documented in this encounter [facility] 03-15-2024 Instructions Reena Telles APRN.CNP - 03/15/2024 2:19 PM EST Please select the following link to access the [facility] Your Guide to a Healthy . [email or web address] Please select the following link to access the [facility] Your Guide to a Healthy . [email or web address] MORNING SICKNESS IN by Carmen Mc M.D. for [employer] As you may already know, morning sickness can often be more appropriately called evening sickness or lwvte-izbrxs-zk-the-day sickness. While there are the anisa few, most women (50-90%) experience some degree of nausea, some have vomiting, and a few develop a severe form of vomiting during called hyperemesis gravidarum. What causes the nausea and vomiting of ? We can't explain why some people feel fine and others are green for months. Even the same woman may feel vastly different in each . There is some relationship between nausea and the level of the hormone hCG. In twin pregnancies, and in other situations where the hCG is greater than expected, nausea and vomiting tend to be worse. In a destined for miscarriage, hCG levels tend to be low, and nausea is often less severe. This being said, a lack of nausea doesn't guarantee that the is destined for miscarriage. The fact that nausea and vomiting are often signs of a healthy can offer a silver lining in the dark cloud of miserable nausea. How long will the nausea last? Fortunately, for most women, nausea and vomiting are a first trimester event, peaking at week 9-10 and waning by week 14-16. When you are feeling bad the weeks can go by slowly but most moms do feel tremendously better by the middle of the . Whether morning sickness is a brief experience or lasts through most of the , there are treatments that can make the weeks or months more tolerable. What can you do about it? Diet: See what works for you. Try eating bland dry foods, and avoid fatty or spicy foods. It is okay to eat a less than perfectly balanced diet in the first trimester. Have your liquids separately from dry foods. Try sports drinks, water, clear juices, Juan-aid, or non-caffeinated tea. Avoid carbonated beverages that fill up your stomach. Try eating lots of little meals. If you tend to feel sick when you first wake up, leave crackers next to the bed for a quick snack before rising. Keeping healthy snacks with you all day to nibble when you feel queasy can sometimes even prevent nausea from starting. vitamins and nausea: Pre- vitamins can sometimes worsen nausea in . While folate is necessary, especially early in the , it comes as a smaller pill that many people find more tolerable than the complete vitamin pill. Ask your practitioner if it is okay to temporarily replace vitamins and iron with just a folate pill if you find a significant worsening in the level of your nausea from the vitamins. Alternative therapies: Acupressure may be used to treat nausea in , and is not known to have any risks for the fetus. Wristbands (marketed for seasickness) that put pressure on an acupressure point at the wrist are often available at drugstores or travel stores. Armando root is used for nausea in many traditional cultures. Some women take fresh grated armando or armando tablets. It is possible that the pill form contains other ingredients or contaminants, so you may want to try fresh armando first. Medications: Emetrol is the only nausea medication approved for use in . It is available over the counter and is soothing to the stomach. A prescription medication called Bendectin was available in the 1970s-1979's and was shown to be safe in , but the company stopped marketing it in the [place] due to the costs of liability coverage. Bendectin contained 10 milligrams of vitamin B6 and 10 milligrams of Doxylamine. Two tablets were given at bedtime and a total of up to 4 tablets could be used in a 24-hour period. Interestingly, Unisom , which contains a higher dose (25 mg.) of the same medication, Doxylamine, is currently marketed as an xonh-[id number] sleeping pill. Ask your practitioner if creating a vitamin B6/Doxylamine combination with [id number]-[id number] medications would be safe for you. Prescription medications like Compazine and Phenergan can be used if the benefits outweigh possible risks, but these have not been clearly shown to be safe in . Zofran , an expensive anti-nausea medication often used to treat nausea from chemotherapy, can also be used. Can I throw up so much it harms the baby? The act of vomiting cannot hurt your fetus, which is protected inside the uterus. If you get dehydrated or develop a metabolic imbalance, this can be unhealthy. As long as you can keep down liquids, you and your baby will generally do all right. Eat when you feel able. If you are unable to keep anything down, or if you notice potential signs of dehydration such as lightheadedness, or concentrated and/or infrequent urination, call your practitioner. Some women need brief hospital admission for intravenous fluids and anti-nausea medications if their condition becomes severe. This severe form of nausea and vomiting is called Hyperemesis Gravidarum. As with many symptoms of , remind yourself that this, too, shall pass, and you'll have a wonderful baby to show for it! TREATMENT OPTIONS, SHORT VERSION: Frequent small meals Hydrate throughout day [employer]ands wrist pressure point applicators Armando root (powdered, in capsules) 250mg four times a day Vitamin B6 25 mg tablet three times a day Also may be taken with half a tablet of Unisom three times a day (Doxylamine 12.5 mg) If severe (weight loss, dehydration), call us and come in for IV hydration and possible medication in the form of injections. Prescription medications such as Phenergan, Compazine, Reglan Childbirth Education at the [facility] - [facility] Child[facility] Preparation Class You and your support person will be introduced to all childbirth options available to you for labor and delivery. Class topics include: Relaxation and breathing techniques Role of your support person Labor-coping options such as positioning and ambulation, continuous support, hydrotherapy, IV pain medication, nitrous oxide, and epidurals Discussion about the delivery experience: Vaginal and section Post- care Basics of bringing home your new baby & what to expect Just Breathe The Just Breathe Course is encouraged for anyone interested in learning more about managing the discomforts associated with labor and . It is perfect for the woman that desires a lower intervention experience, a woman wanting a refresher course after already having a previous child, a woman wanting to learn more ways her support person can be involved in the labor process, or just a first-time mother looking for the best labor experience possible. This class truly would be a benefit for families but HURRY, class sizes are kept small, and they could fill up quickly. This class is taught by an experienced Registered Nurse that works in the [facility] and has specialized training in supporting women during low intervention labor and . Topics that will be taught during the class: Setting the stage for maximum comfort during your labor Creation of a Preferences Worksheet How to use comfort measures to manage pain in labor A review of natural methods available How your support person can be an active participant in the labor and delivery process If you take all of the Childbirth classes offered at [facility] the cost is $80 If taken Separately, the costs are: The childbirth Class is $55 The Class is $25 Just Breathe is $35 Class Who wouldn t want their experience with their to be memorable? We can help. Taught by a certified automotive service consultant, our class covers the basics of , as well as where to get help if you need it. class $25 if taken alone. Tour the [facility] is committed to making the of your child the most memorable day of your life. For more information about the childbirth education classes, tours, or services we offer, call . documented in this encounter [facility] 02-19-2021 Note Send Summary: Discharge Summary Providers: Provider RoleProvider Name Alexandre Davis ReferringAlexandre Connor PrimaryRequired, No Pcp Note Recipients: Alexandre Connor DO Discharge: Summary: Admission Date: .17-Feb-2021 00:41:00 Discharge Date: 19-Feb-2021 Attending Physician at Discharge: Alexandre Connor Admission Reason: 39 weeks gestation. PROM Final Discharge Diagnoses: 39 weeks gestation. PROM. Anemia Procedures: Spontaneous vaginal delivery Condition at Discharge: Satisfactory Disposition at Discharge: .Home Vital Signs: T PRBPSpO2 [id number]% Date/Time02/19 4: 4: 4: 4: 4:44 Range(36.3C - 36.6C ) (81 - 113 ) (16 - 16 ) (123 - 142 )/ (61 - 85 ) (95% - 99% ) Physical Exam: Please see rounding note Hospital Course: Patient recuperated well in the period. Patient breast-feeding. Precautions reviewed return at length at bedside. All questions answered Discharge Information: and Continuing Care: Lab Results - Pending: None Radiology Results - Pending: None [place] Suicide Risk: negative Discharge Instructions: Activity: Return to normal activity as tolerated Nutrition/Diet: Regular Follow Up Appointments: Follow-Up - OB Provider: Physician/Dept/Service: OB Provider Dr. Hernandez Call to Schedule in: 4 weeks, Discharge Medications: Home Medication 1 oral capsule - 1 tab(s) orally once a day ibuprofen 600 mg oral tablet - 1 tab(s) orally every 6 hours ferrous sulfate 325 mg (65 mg elemental iron) oral tablet - 1 tab(s) orally 2 times a day PRN Medication docusate sodium 100 mg oral capsule - 1 cap(s) orally 2 times a day, As needed, Stool Softening Electronic Signatures: Alexandre Connor) (Signed 19-Feb-2021 07:41) Authored: Send Summary, Summary Content, Ongoing Care, Note Completion Last Updated: 19-Feb-2021 07:41 by Alexandre Connor) [facility] 02-17-2021 Note Provider Information : Maternal Delivery Information: Delivery Type: vaginal delivery Did this pt receive corticosteroids at any time during this : No Was chorioamnionitis diagnosed during this labor: no What antibiotic(s) were administered during labor and/or pre-incision: none Did this patient receive progesterone in any form to prevent premature delivery: no Rupture of Membranes: spontaneous Spontaneous Labor: yes Augmentation: no Vaginal Delivery Type: spontaneous Vaginal Delivery Complications: none Delivery Anesthesia: epidural Presentation/Lie: vertex Vertex Presentation: Left: occiput anterior Episiotomy & Repair: none Perineal Laceration: first degree Other Laceration: periurethral, right Abrasion: none QBL (mL): 315 mL Blood Products Transfused during Delivery (indicate number of units given): none Placenta: spontaneous Choose Baby: A Cord Characteristics: no anomalies noted Delayed Cord Clamping (equal to or greater than 30 seconds): yes Time until cord clamp: 2min Day of Delivery (Baby A): 17-Feb-2021 Gestational Age at Delivery (wk.days): 39.5 Term: term 37.0 to 41.6 weeks Live : yes Vaginal Delivery Provider: Alexandre Connor Hemorrhage Risk Screen: Hemorrhage Medium Risk Factors (T&S) (2 or more medium risks Go to High Risk section & obtain T&C)augmentation of labor (with oxytocin), BMI > 35(1) Hemorrhage Risk Assessmenthemorrhage risks reviewed and additional factors added if applicable Hemorrhage Risk Score HighPatient is at High Risk for an OB hemorrhage. Order Type & Cross. Score Calculation - IT Use Only2 Electronic Signatures: Alexandre Connor) (Signed 17-Feb-2021 11:59) Authored: Provider Information, Hemorrhage Risk, Note Completion Last Updated: 17-Feb-2021 11:59 by Alexandre Connor () References: 1. Data Referenced From History and Physical - OB 17-Feb-2021 03:19 [facility] 02-17-2021 Note HPI/OB History: Care Provider: Alexandre Connor HPI Descriptive Info: HPI 25yo G1 @ 39/5 presents for PROM at 0030. Denies vaginal bleeding decreased movement. PMH:morbid obesity PSH:tonsillectomy, wisdom extraction FMH:GM-DM, breast ca. Mom-ITP All:NKDA Meds:See Med rec Social:Neg OB Hx: uncomplicated so far Constitutional: No fevers, chills Eye:no vision changes Respiratory: no SOB Cardiovascular: no chest pain Gastrointestinal: No nausea, vomiting, diarrhea, constipation, abdominal pain Genitourinary:no dysuria Gynecology: See HPI Endocrine: No heat or cold intolerance Musculoskeletal: No decreased ROM Skin:No rash Neurologic: No numbness tingling Psychiatric: anxiety All other: all other systems reviewed and negative for complaint Labs: Labs: Labs: Blood Typed Date: 17-Feb-2021 Blood Type: O positive Antibody Screen Results: negative Chlamydia Date: 10-Aug-2020 Chlamydia Results: negative Gonorrhea Date: 10-Aug-2020 Gonorrhea Results: negative Group B Strep Date: 22-Jan-2021 Strep Results: negative GCT (dd-mmm-yy): 13-Nov-2020 GCT result: 122 HBsAG Date: 13-Aug-2020 HBsAG Results: negative HIV Date: 13-Aug-2020 HIV Results: negative Rubella Date: 13-Aug-2020 Rubella Results: immune Rubella Comments: Result Value POSITIVE Syphilis (mmm-dd-yyyy): 13-Aug-2020 Syphilis Results: negative Antepartum/: Antepartum/PP: Final [id number] Current EGA:39.5 Patient is > or = 35.0 wks EGAyes Determined byultrasound Date of [id number] EFW (kg)3.628 kilogram(s) EFW (lb)8 pound(s) EFW (oz)0 ounce(s) Presentationcephalic presentation verified bybedside ultrasound Vaginal BleedingNo Contractions/Abdominal PainYes Discharge/Loss of FluidYes MovementGood Hemorrhage Medium Risk Factors (T&S) (2 or more medium risks Go to High Risk section & obtain T&C)augmentation of labor (with oxytocin), BMI > 35 Hemorrhage Risk Assessmenthemorrhage risk completed on admission Hemorrhage Risk ScorePatient is at High Risk for an OB hemorrhage. Order Type & Cross. Score Calculation - IT Use Only2 TOLACno Did this patient receive progesterone in any form to prevent premature deliveryno Does patient desire postplacental IUDno Allergies: penicillin: Rash Medications Prior to Admission: 1 oral capsule: 1 tab(s) orally once a day. Objective: Objective Information: T PRBPSpO2 [id number]% Date/Time02/17 0: 0: 0: 0: 0:53 Range(36.7C - 36.7C ) (101 - 104 ) (18 - 18 ) (131 - 131 )/ (83 - 83 ) (98% - 98% ) Pain reported at 02/17 0:53: 0 = None Physical Exam by System: Constitutional: alert, oriented Obstetric: Cat I [place] Q3-4min Cx: Eyes: pupils equal, sclerae clear Respiratory/Thorax: Clear to auscultation bilaterally Cardiovascular: Regular rate rhythm Gastrointestinal: Soft positive bowel sounds probably tender nondistended Extremities: Negative calf pain Neurological: DTR+2 no clonus Psychological: Anxious Skin: no rashes or lesions Recent Lab Results: Results: CBC: 02/17/2021 02:17 \ Hgb / \ 10.6 L / WBC Plt 14.6 H 164 / Hct \ / 33.7 L \ RBC: 4.19 MCV: 80 CMP: 02/17/2021 02:17 NA+ Cl- BUN / 133 L 103 11 / Glucose 105 H K+ HCO3- Creat \ 3.6 17 L 0.61 \ \ T Bili / \ 0.2 / AST x ---- x ALT 18 x ---- x 15 / Alk P \ / 148 H \ Calcium : 8.8 Anion Gap : 17 Albumin : 3.4 T Protein : 6.6 Assessment and Plan: Problem List: Additional Dx: PROM (premature rupture of membranes): 39 weeks gestation of : Assessment: 1)PROM-Plan to start pitocin per protocol 2)Cat I 3)GBS-Neg 4)Pain-Epidural as needed Electronic Signatures: Alexandre Connor (DO) (Signed 17-Feb-2021 03:42) Authored: HPI/OB History, Labs, Antepartum/PP, Allergies, Medications Prior to Admission, Objective, Assessment and Plan, Note Completion Last Updated: 17-Feb-2021 03:42 by Alexandre Connor (DO) [facility] Evaluation note Cardiovascular: Regu lar rate rhythmGastrointestinal: Soft positive bowel sounds probably tender nondistendedExtremities: Negative calf painConstitutional: alert, orientedSkin: no rashes or lesionsEyes: pupils equal, sclerae clearRespiratory/Thorax: Clear to auscultation bilaterally [facility] Evaluation note Diagnosis Encounter for supervision of high risk in first trimester, antepartum- Primary 8 weeks gestation of state, incidental with uncertain dates in first trimester Obesity affecting in first trimester, unspecified obesity type Penicillin allergy Personal history of allergy to penicillin Nausea and vomiting during Heartburn during in first trimester Constipation during in first trimester [facility] Diagnosis 12 weeks gestation of - Primary state, incidental Encounter for supervision of high risk in first trimester, antepartum [facility] Diagnosis 16 weeks gestation of - Primary state, incidental Encounter for supervision of high risk in first trimester, antepartum Obesity affecting in first trimester, unspecified obesity type [facility] Diagnosis 20 weeks gestation of - Primary state, incidental Encounter for supervision of high risk in first trimester, antepartum Obesity affecting in first trimester, unspecified obesity type [facility] Diagnosis Encounter for anatomic survey- Primary 20 weeks gestation of state, incidental Obesity affecting in second trimester, unspecified obesity type [facility] Diagnosis Encounter for supervision of high risk in second trimester, antepartum- Primary [facility] Diagnosis Screening for diabetes mellitus- Primary Encounter for supervision of high risk in second trimester, antepartum Obesity affecting in first trimester, unspecified obesity type Penicillin allergy Personal history of allergy to penicillin 25 weeks gestation of state, incidental * Assessment & Plan Note - Alexandra Mullins MD - 07/15/2024 4:17 PM EDT Associated Problem(s): Obesity affecting in first trimester * Assessment & Plan Note - Alexandra Mullins MD - 07/15/2024 4:17 PM EDT Associated Problem(s): Penicillin allergy documented in this encounter [facility] note* Diagnosis Encounter for follow-up ultrasound of anatomy- Primary 24 weeks gestation of state, incidental Encounter for supervision of high risk in second trimester, antepartum Screening for diabetes mellitus- Primary Encounter for supervision of high risk in second trimester, antepartum Obesity affecting in first trimester, unspecified obesity type Penicillin allergy Personal history of allergy to penicillin 25 weeks gestation of state, incidental documented in this encounter [facility] note* Diagnosis Screening for diabetes mellitus- Primary Encounter for supervision of high risk in second trimester, antepartum (HCC) Obesity affecting in first trimester, unspecified obesity type (HCC) Penicillin allergy Personal history of allergy to penicillin 25 weeks gestation of (HCC) state, incidental Supervision of high risk in third trimester (HCC)- Primary Unspecified high-risk 28 weeks gestation of (HCC) state, incidental Penicillin allergy Personal history of allergy to penicillin Other obesity affecting in third trimester (HCC) documented in this encounter [facility] noteNo assessment information availableWMer[facility] Work Phone: Evaluation note* Diagnosis Screening for diabetes mellitus- Primary Encounter for supervision of high risk in second trimester, antepartum (HCC) Obesity affecting in first trimester, unspecified obesity type (HCC) Penicillin allergy Personal history of allergy to penicillin 25 weeks gestation of (HCC) state, incidental Supervision of high risk in third trimester (HCC)- Primary Unspecified high-risk 32 weeks gestation of (HCC) state, incidental Edema during in third trimester (HCC) * Assessment & Plan Note - Alexandra Mullins MD - 09/07/2024 3:17 PM EDT Associated Problem(s): Supervision of high risk in third trimester (HCC) documented in this encounter [facility] note* Diagnosis Screening for diabetes mellitus- Primary Encounter for supervision of high risk in second trimester, antepartum (HCC) Obesity affecting in first trimester, unspecified obesity type ([facility]) Penicillin allergy Personal history of allergy to penicillin 25 weeks gestation of ([facility]) state, incidental Supervision of high risk in third trimester ([facility])- Primary Unspecified high-risk 32 weeks gestation of ([facility]) state, incidental Edema during in third trimester ([facility]) Supervision of high risk in third trimester ([facility])- Primary Unspecified high-risk Edema during in third trimester ([facility]) Obesity affecting in third trimester, unspecified obesity type (HCC) 34 weeks gestation of ([facility]) state, incidental 36 weeks gestation of ([facility])- Primary state, incidental Supervision of high risk in third trimester ([facility]) Unspecified high-risk Obesity affecting in third trimester, unspecified obesity type (HCC) documented in this encounter [facility] note* Diagnosis Screening for diabetes mellitus- Primary Encounter for supervision of high risk in second trimester, antepartum (HCC) Obesity affecting in first trimester, unspecified obesity type ([facility]) Penicillin allergy Personal history of allergy to penicillin 25 weeks gestation of ([facility]) state, incidental Supervision of high risk in third trimester ([facility])- Primary Unspecified high-risk 32 weeks gestation of ([facility]) state, incidental Edema during in third trimester ([facility]) Supervision of high risk in third trimester ([facility])- Primary Unspecified high-risk Edema during in third trimester ([facility]) Obesity affecting in third trimester, unspecified obesity type (HCC) 34 weeks gestation of ([facility]) state, incidental Supervision of high risk in third trimester ([facility])- Primary Unspecified high-risk Obesity affecting in third trimester, unspecified obesity type ([facility]) Edema during in third trimester ([facility]) Positive GBS test 37 weeks gestation of ([facility]) state, incidental documented in this encounter [facility] note* Diagnosis Screening for diabetes mellitus- Primary Encounter for supervision of high risk in second trimester, antepartum (HCC) Obesity affecting in first trimester, unspecified obesity type (HCC) Penicillin allergy Personal history of allergy to penicillin 25 weeks gestation of (HCC) state, incidental Supervision of high risk in third trimester (HCC)- Primary Unspecified high-risk 32 weeks gestation of (HCC) state, incidental Edema during in third trimester (HCC) Supervision of high risk in third trimester (HCC)- Primary Unspecified high-risk Edema during in third trimester (HCC) Obesity affecting in third trimester, unspecified obesity type (HCC) 34 weeks gestation of (HCC) state, incidental 38 weeks gestation of ([facility])- Primary state, incidental Supervision of high risk in third trimester (HCC) Unspecified high-risk Obesity affecting in third trimester, unspecified obesity type ([facility]) Positive GBS test documented in this encounter [facility] note* Diagnosis Screening for diabetes mellitus- Primary Encounter for supervision of high risk in second trimester, antepartum (HCC) Obesity affecting in first trimester, unspecified obesity type ([facility]) Penicillin allergy Personal history of allergy to penicillin 25 weeks gestation of (HCC) state, incidental Supervision of high risk in third trimester (HCC)- Primary Unspecified high-risk 32 weeks gestation of ([facility]) state, incidental Edema during in third trimester (HCC) Supervision of high risk in third trimester (HCC)- Primary Unspecified high-risk Edema during in third trimester (HCC) Obesity affecting in third trimester, unspecified obesity type (HCC) 34 weeks gestation of ([facility]) state, incidental Supervision of high risk in third trimester (HCC)- Primary Unspecified high-risk 39 weeks gestation of ([facility]) state, incidental Obesity affecting in third trimester, unspecified obesity type (HCC) * Assessment & Plan Note - Alexandra Mullins MD - 10/26/2024 11:06 AM EDT Associated Problem(s): Supervision of high risk in third trimester (HCC) Orders: URINE OB DIP B/O * Assessment & Plan Note - Alexandra Mullins MD - 10/26/2024 11:06 AM EDT Associated Problem(s): Obesity affecting in third trimester (HCC) Orders: URINE OB DIP B/O documented in this [facility]* Pt. presents for annual exam * up to date on pap * Wants to continue OCP * Denies any c/o or concerns [facility] Work Phone: Hospital Discharge instructions* Activity:Return to normal activity as tolerated. * Patient Instructions:Pelvic Rest: DO NOT place anything in vagina until cleared by OB Provider. * Follow-Up - OB Provider:Physician/Dept/Service: OB Provider, Dr. Barraza to Schedule in: 4 weeks, * Gold Form - Other Clinicians:Other Clinician Instructions: Any woman can have complications after the of a baby including a blood clot, a heart problem, hypertensive disorder/eclampsia, depression, hemorrhage, or infection. Notify all providers of your delivery date up to one year after .* Call 911 or go to nearest emergency room right away if you have: PAIN or pressure in chest; OBSTRUCTED breathing or shortness of breath; SEIZURES; THOUGHTS of hurting yourself or your baby; heart palpitations/racing; change in alertness/confusion.Call your provider if you have: BLEEDING, soaking t hrough a pad/hour, or blood clots the size of an egg or bigger; INCISION (episiotomy stitches or site) that is not healing (increased redness, pain, drainage/pus, or separation); RED or swollen leg/calf that is painful or warm to touch, especially in one leg more than the other; TEMPERATURE of 100.4 F or higher or chills; HEADACHE that does not get better with medicine, rest or hydration, or bad headache with vision changes like spots or flashing lights; increased swelling of face, hands or legs; severe cramps or upper right belly pain; red or swollen breast that is painful or warm to touch; an unusual, foul odor from your vaginal discharge; pain, burning, or difficulty during urination; severe constipation (more than 5 days); feelings of depression (such as depressed mood, lossof interest in enjoyable things, unable to care for yourself, trouble sleeping, lack of appetite, or feeling worthless). If you can t reach your provider or symptoms worsen, call 911 or go to [facility]. *Information obtained from [facility] s: Save Your Life: Get Care for These POST- Warning Signs Pericare Use yassine bottle with warm water every time you use the bathroom Squirt water on the outside vaginal area. Do not squirt water inside the vagina Warm water helps rinse/wash off the blood. It is also comforting and promotes healing Take it home and use it for the first week Uterine Changes/Lochia You re going to feel menstrual-like cramps for about the first week Cramping may get worse after each baby Cramping typically gets worse while Uterus may take up to 6 weeks to move back to its normal size in your pelvis The first few days will be heavy, then take the course of a period Vaginal bleeding can last 2-6 weeks, usually less if you re Discuss signs of hemorrhage (saturated pad in <1hr, egg sized blood clots) Gibbon-sized blood clots are normal Bright red for the first week, then pink, then brown Bowel Function It may take several days for normal bowel function to return Increasing fluid intake, such as water, apple juice, and prune juice, and eating plenty of fresh fruits and vegetables may help avoid constipation You may take a stool softener until normal bowel function returns If you are constipated, and have tried a mild laxative without results, contact your doctor or specimen accessioner Activity No pushing, pulling, or lifting anything heavier than 20lbs until follow up visit (vag del.) No pushing, pulling, or lifting anything heavier than 10lbs until follow up visit (c/s del.) Accept help from family/friendswhen it is offered Try to sleep while the baby sleeps, or at least rest/relax If it hurts, don t doit, if you re tired, sleep, if you re hungry, eat Sexual Activity/Pelvic Rest Pelvic rest for 6 weeks or until cleared by your OB provider. This means no sex, no tampons, no douching, no baths, pools, or hot tubs. Sitz baths are ok Contraception Ask patient what their plans for control are Remind them of pelvic rest until their follow-up appt. with the OB provider is not a method of control You can get right away Condoms and abstinence are the only ways to prevent STDs o Condoms o Depo (may lower your milk supply) o Nexplanon o IUD o Oral contraceptives (progestin only) Incision/Laceration/Episiotomy Look at your incision every day and report increased redness, pain, drainage, foul odor or separation of your incision. You may shower and wash your incision gently and pat dry. Your stitches will dissolve on their own, you do not need to come back to havethem removed Stitches take about 2 weeks to heal. You may feel tightness, pulling, or itching as they heal Breast Care - Lactating Proper latch = prevention of problems After feeding, manually express some colostrum/milk, or apply lanolin ointment and gently rub on to nipple and areola Avoid using drying soaps in the shower, dry nipples can crack Wear a supportive bra Airing out is good practice Any difficulty please call [phone] to speak with a automotive service consultant.Please join our mom's support group, which is the second Thursday of every month from [phone] in the Birthing & Women's Unit, 4th floor [facility]. No registration required.Thank you for choosing [facility]. [facility] Additional Instructions aware of needing to waste picker prescription.[facility] Work Phone: Reason for referral (narrative)* Diagnostic Procedure Only (Routine) - New Request Specialty Diagnoses / Procedures Referred By Navneet pascal Referred To Contact [facility] Diagnoses 8 weeks gestation of with uncertain dates in first trimester Procedures NUCHAL TRANSLUCENCY WHI US NUCHAL TRANSLUCENCY 1ST GESTATION Reena Telles APRN.DEMOLITION SPECIALIST [address] [address] [facility] [address] [place] [address] Referral ID Status Reason Start Date Expiration Date Visits Requested Visits Authorized [id number] New Request Auto-Generat ed Referral 4 03/21/2025 1 1 * Diagnostic Procedure Only (Routine) - New Request Specialty Diagnoses / Procedures Referred By Navneet pascal Referred To Contact [facility] Diagnoses 8 weeks gestation of with uncertain dates in first trimester Procedures OBSTETRIC ULTRASOUND WHI US PREG UTERUS AFTER 1ST TRIMEST GESTATION Reena Telles APRN.CNP [address] [place] [address] [facility] [address] [place] [address] Referral ID Status Reason Start Date Expiration Date Visits Requested Visits Authorized [id number] New Request Auto-Generat ed Referral 4 03/21/2025 [address] [facility] for referral (narrative)No reason for referral information availableWMercy Health [facility] Work Phone: Summary Purpose Family History Unknown Family Member Name Dates Details Family history of diabetes m ellitus: Grandmother(V18.0, Z83.3) Status:Active Family history of malignant neoplasm of breast: Grandmother(V16.3, Z80.3) Status:Active Family history of bleeding d isorder: Mother(V18.3, Z83.2) Status:Active Unknown Family Member Name Dates Details Family history of diabetes m ellitus: Grandmother(V18.0, Z83.3) Status:Active Family history of malignant neoplasm of breast: Grandmother(V16.3, Z80.3) Status:Active Family history of bleeding d isorder: Mother(V18.3, Z83.2) Status:Active Unknown Family Member Name Dates Details Family history of diabetes m ellitus: Grandmother(V18.0, Z83.3) Status:Active Family history of malignant neoplasm of breast: Grandmother(V16.3, Z80.3) Status:Active Family history of bleeding d isorder: Mother(V18.3, Z83.2) Status:Active Unknown Family Member Name Dates Details Family history of diabetes m ellitus: Grandmother(V18.0, Z83.3) Status:Active Family history of malignant neoplasm of breast: Grandmother(V16.3, Z80.3) Status:Active Family history of bleeding d isorder: Mother(V18.3, Z83.2) Status:Active Unknown Family Member Name Dates Details Family history of diabetes m ellitus: Grandmother(V18.0, Z83.3) Status:Active Family history of malignant neoplasm of breast: Grandmother(V16.3, Z80.3) Status:Active Family history of bleeding d isorder: Mother(V18.3, Z83.2) Status:Active Unknown Family Member Name Dates Details Family history of diabetes m ellitus: Grandmother(V18.0, Z83.3) Status:Active Family history of malignant neoplasm of breast: Grandmother(V16.3, Z80.3) Status:Active Family history of bleeding d isorder: Mother(V18.3, Z83.2) Status:Active Unknown Family Member Name Dates Details Family history of diabetes m ellitus: Grandmother(V18.0, Z83.3) Status:Active Family history of malignant neoplasm of breast: Grandmother(V16.3, Z80.3) Status:Active Family history of bleeding d isorder: Mother(V18.3, Z83.2) Status:Active Unknown Family Member Name Dates Details Family history of diabetes m ellitus: Grandmother(V18.0, Z83.3) Status:Active Family history of malignant neoplasm of breast: Grandmother(V16.3, Z80.3) Status:Active Family history of bleeding d isorder: Mother(V18.3, Z83.2) Status:Active Unknown Family Member Name Dates Details Family history of diabetes m ellitus: Grandmother(V18.0, Z83.3) Status:Active Family history of malignant neoplasm of breast: Grandmother(V16.3, Z80.3) Status:Active Family history of bleeding d isorder: Mother(V18.3, Z83.2) Status:Active Unknown Family Member Name Dates Details Family history of diabetes m ellitus: Grandmother(V18.0, Z83.3) Status:Active Family history of malignant neoplasm of breast: Grandmother(V16.3, Z80.3) Status:Active Family history of bleeding d isorder: Mother(V18.3, Z83.2) Status:Active Unknown Family Member Name Dates Details Family history of diabetes m ellitus: Grandmother(V18.0, Z83.3) Status:Active Family history of malignant neoplasm of breast: Grandmother(V16.3, Z80.3) Status:Active Family history of bleeding d isorder: Mother(V18.3, Z83.2) Status:Active Unknown Family Member Name Dates Details Family history of diabetes m ellitus: Grandmother(V18.0, Z83.3) Status:Active Family history of malignant neoplasm of breast: Grandmother(V16.3, Z80.3) Status:Active Family history of bleeding d isorder: Mother(V18.3, Z83.2) Status:Active Unknown Family Member Name Dates Details Family history of diabetes m ellitus: Grandmother(V18.0, Z83.3) Status:Active Family history of malignant neoplasm of breast: Grandmother(V16.3, Z80.3) Status:Active Family history of bleeding d isorder: Mother(V18.3, Z83.2) Status:Active Advance Directives No Advanced Directives Records FoundNo Advanced Directives Records FoundNo Advanced Directives Records FoundNo Advanced Directives Records FoundNo Advanced Directives Records FoundNo Advanced Directives Records FoundNo Advanced Directives Records FoundNo Advanced Directives Records Found Chief Complaint * Patient is here for yearly exam. Patient does self breast exams regularly. LMP 04/07/22 * PT HAS NO CONCERNS. RENEWED CONTROL Chief Complaint and Reason for Visit Chief Complaint Admit Date R/O PRE E August 15, 2024 4:3 8pm Additional Source Comments INFORMATION SOURCE (unrecogn ized section and content) DATE CREATED AUTHOR 10/23/2017 [facility] DATE CREATED AUTHOR AUTHOR'S ORGANIZ ATION 04/20/2021 [facility] DATE CREATED AUTHOR AUTHOR'S ORGANIZ ATION 09/06/2021 [facility] DATE CREATED AUTHOR AUTHOR'S ORGANIZ ATION 09/14/2021 [facility] DATE CREATED AUTHOR AUTHOR'S ORGANIZ ATION 04/26/2022 [facility] DATE CREATED AUTHOR AUTHOR'S ORGANIZ ATION 04/26/2022 [employer] DATE CREATED AUTHOR AUTHOR[facility]S [facility]GANIZ ATION [facility] DATE CREATED AUTHOR AUTHOR'S ORGANIZ ATION 10/22/2024 [facility] <item> Privacy Markings (unrecogniz ed section and content) Section Author: Suzan Carrington PROHIBITION ON REDISCLOSURE OF CONFIDENTIAL INFORMATION This notice accompanies a disclosure of information concerning a client made to you with the consent of such client. Source Comments (unrecognize d section and content) In the event this informatio n is protected by the Federal Confidentiality of Alcohol and Drug Abuse Patient Records regulations: The Federal rules restrict any use of the information to criminally investigate or prosecute any alcohol or drug abuse patient.[facility] the event this information is protected by the Federal Confidentiality of Alcohol and Drug Abuse Patient Records regulations: The Federal rules restrict any use of the information to criminally investigate or prosecute any alcohol or drug abuse patient.[facility] the event this information is protected by the Federal Confidentiality of Alcohol and Drug Abuse Patient Records regulations: The Federal rules restrict any use of the information to criminally investigate or prosecute any alcohol or drug abuse patient.[facility] the event this information is protected by the Federal Confidentiality of Alcohol and Drug Abuse Patient Records regulations: The Federal rules restrict any use of the information to criminally investigate or prosecute any alcohol or drug abuse patient.[facility] the event this information is protected by the Federal Confidentiality of Alcohol and Drug Abuse Patient Records regulations: The Federal rules restrict any use of the information to criminally investigate or prosecute any alcohol or drug abuse patient.[facility] the event this information is protected by the Federal Confidentiality of Alcohol and Drug Abuse Patient Records regulations: The Federal rules restrict any use of the information to criminally investigate or prosecute any alcohol or drug abuse patient.[facility] the event this information is protected by the Federal Confidentiality of Alcohol and Drug Abuse Patient Records regulations: The Federal rules restrict any use of the information to criminally investigate or prosecute any alcohol or drug abuse patient.[facility] the event this information is protected by the Federal Confidentiality of Alcohol and Drug Abuse Patient Records regulations: The Federal rules restrict any use of the information to criminally investigate or prosecute any alcohol or drug abuse patient.[facility] the event this information is protected by the Federal Confidentiality of Alcohol and Drug Abuse Patient Records regulations: The Federal rules restrict any use of the information to criminally investigate or prosecute any alcohol or drug abuse patient.[facility] the event this information is protected by the Federal Confidentiality of Alcohol and Drug Abuse Patient Records regulations: The Federal rules restrict any use of the information to criminally investigate or prosecute any alcohol or drug abuse patient.[facility] the event this information is protected by the Federal Confidentiality of Alcohol and Drug Abuse Patient Records regulations: The Federal rules restrict any use of the information to criminally investigate or prosecute any alcohol or drug abuse patient.[facility] HospitalIn the event this information is protected by the Federal Confidentiality of Alcohol and Drug Abuse Patient Records regulations: The Federal rules restrict any use of the information to criminally investigate or prosecute any alcohol or drug abuse patient.[facility] HospitalIn the event this information is protected by the Federal Confidentiality of Alcohol and Drug Abuse Patient Records regulations: The Federal rules restrict any use of the information to criminally investigate or prosecute any alcohol or drug abuse patient.[facility] the event this information is protected by the Federal Confidentiality of Alcohol and Drug Abuse Patient Records regulations: The Federal rules restrict any use of the information to criminally investigate or prosecute any alcohol or drug abuse patient.[facility] the event this information is protected by the Federal Confidentiality of Alcohol and Drug Abuse Patient Records regulations: The Federal rules restrict any use of the information to criminally investigate or prosecute any alcohol or drug abuse patient.[facility] HospitalIn the event this information is protected by the Federal Confidentiality of Alcohol and Drug Abuse Patient Records regulations: The Federal rules restrict any use of the information to criminally investigate or prosecute any alcohol or drug abuse patient.[facility] Hospital[facility] the event this information is protected by the Federal Confidentiality of Alcohol and Drug Abuse Patient Records regulations: The Federal rules restrict any use of the information to criminally investigate or prosecute any alcohol or drug abuse patient.[facility] HospitalIn the event this information is protected by the Federal Confidentiality of Alcohol and Drug Abuse Patient Records regulations: The Federal rules restrict any use of the information to criminally investigate or prosecute any alcohol or drug abuse patient.[facility] HospitalIn the event this information is protected by the Federal Confidentiality of Alcohol and Drug Abuse Patient Records regulations: The Federal rules restrict any use of the information to criminally investigate or prosecute any alcohol or drug abuse patient.[facility] HospitalIn the event this information is protected by the Federal Confidentiality of Alcohol and Drug Abuse Patient Records regulations: The Federal rules restrict any use of the information to criminally investigate or prosecute any alcohol or drug abuse patient.[facility] Reason for Visit (unrecogniz ed section and content) Reason Comments Initial OB Visit Reason Onset Date Comments Care 04/19/2024 Reason Onset Date Comments Care 05/17/2024 Reason Onset Date Comments Care 06/14/2024 Reason Comments US Specialty Diagnoses / Procedures Referred By Contac t Referred To Contact [facility] Diagnoses 8 weeks gestation of with uncertain dates in first trimester Procedures OBSTETRIC ULTRASOUND WHI US PREG UTERUS AFTER 1ST TRIMEST GESTATION Reena Telles APRN.DEMOLITION SPECIALIST [address] [place] [address] Phone: tel: fax: [facility] [address] [place] [address] Referral ID Status Reason Start Date Expiration Date V isits Requested Visits Authorized [id number] Closed Auto-Generate d Referral 03/21/2024 03/21/2025 1 1 Reason Comments Follow Up Reason Onset Date Comments Care 07/15/2024 Specialty Diagnoses / Procedures Referred By Navneet t Referred To Contact [facility] Diagnoses Encounter for supervision of high risk in second trimester, antepartum Procedures OBSTETRIC ULTRASOUND WHI US PREG UTERUS AFTER 1ST TRIMEST GESTATION Reena Telles, CHRISTOPHER.DEMOLITION SPECIALIST [address] [place] [address] Phone: tel: fax: [address] [address] Referral ID Status Reason Start Date Expiration Date V isits Requested Visits Authorized [id number] Closed Auto-Generate d Referral 06/15/2024 06/15/2025 1 1 Reason Onset Date Comments Care 08/10/2024 Reason Onset Date Comments Refill Request 08/17/2024 Reason Onset Date Comments Care 09/07/2024 Reason Comments Breast Pump Reason Onset Date Comments Care 10/05/2024 Reason Onset Date Comments Care 10/12/2024 Reason Onset Date Comments Care 10/19/2024 Reason Onset Date Comments Care 10/26/2024 Care Teams (unrecognized sec tion and content) Team Status: Active Member Role Status Dates No Primary Care Physician Primary Care Provider Active Team Status: Inactive Member Role Status Dates No Primary Care Physician Primary Care Provider Active Start: August 15, 2024 End: August 15, 2024 Vandana Smith CNM Attending Provider Active St art: August 15, 2024 End: August 15, 2024 Vandana Smith CNM Referring Provider Active St art: August 15, 2024 End: August 15, 2024 Goals (unrecognized section and content) Goals may be documented in a n alternate section FOR RECORDS PERTAINING TO PATIENTS WHO ARE OR HAVE BEEN ENROLLED IN A CHEMICAL DEPENDENCY/SUBSTANCEABUSE PROGRAM, SOME INFORMATION MAY BE OMITTED. This clinical summary was aggregated from multiple sources. Caution should be exercised in using it in the provision of clinical care. This summary normalizes information from multiple sources, and as a consequence, information in this document may materially change the coding, format and clinical context of patient data. In addition, data may be omitted in some cases. CLINICAL DECISIONS SHOULD BE BASED ON THE PRIMARY CLINICAL RECORDS. [employer] [facility]. provides no warranty or guarantee of the accuracy or completeness of information in this document.
--- NOTE | 2024-10-27 07:47 | HP.PCM.OB_ITS ---
HPI - General General Date of Admission: 10/27/24 HPI Narrative LAYO PADRON, is a 29 F at 39.6 weeks gestation who presents for elective induction of labor. Maternal Data Information JUDD Calculator Estimated Delivery Date Method Current WG Current Estimate 10/28/24 Manual 39w 6d PFSH PFSH Home Medications ?Medication ?Instructions ?Recorded ?Last Taken ?Type PNV 153-FA 400 mcg-om3 35 mg-dha 1 tab PO DAILY pregna ncy 08/15/24 10/26/24 08:00 History 25 mg-epa 5 mg-fish oil chew tablet ( Gummies) pantoprazole 20 mg tablet,delayed 20 mg PO DAILY HEART BURN 08/15/24 10/26/24 08:00 History release (Protonix) Allergy/AdvReac Type Severity Reaction Status Date / Time Penicillins Allergy Mild Rash Verified 10/27/24 07:27 NST FHR Rate Baby A Baseline: 140 Variability:: Moderate Accelerations:: 15 x 15 Decelerations:: None NST Reactive:: Yes ROS Eyes Eyes: Denies blurry vision, change in vision or spots in vision ENT HEENT: Denies dizziness or headache(s) Cardiovascular Cardiovascular: Denies abdominal pain, chest pain or dyspnea Respiratory/Chest Respiratory/Chest: Denies cough, dyspnea, shortness of breath at rest or shortness of breath with exertion Gastrointestinal Gastrointestinal: Denies abdominal pain, diarrhea or vomiting Genitourinary Genitourinary: Denies change in urinary stream, difficulty urinating or dysuria Musculoskeletal Musculoskeletal: Reports none Integumentary Integumentary: Denies rash Neurologic Neurologic: Denies dizziness, headache(s), memory loss or weakness Psychiatric Psychiatric: Reports none Vital Signs Vital Signs Vital Signs: Weight Weight: 245 lb Body Mass Index (BMI) 42.0 Physical Exam Const alert, oriented x3 and no apparent distress General Appearance: cooperative Orientation / Consciousness: awake Exam Limitations: no limitations HEENT normocephalic Head and Scalp: normal to inspection Eyes General Eye: normal appearance of both eyes Neck full ROM and no lymphadenopathy Lymph Lymphatic: no lymphadenopathy noted Chest inspection of chest normal Resp normal respiratory effort, normal air movement and clear to auscultation bilaterally Effort and Inspection: able to speak in complete sentences and symmetric chest movement Cardio regular rate and regular rhythm GI normal to inspection, nondistended, normoactive bowel sounds Manual OB Exam: presentation cephalic Back/Spine normal ROM Extremity full ROM and no calf tenderness Skin no rashes or lesions noted General Skin Exam: no breakdown Neuro oriented x3 and CN's II-XII intact bilaterally Psych mental status grossly normal and thought process normal Labs Labs Labs: Hct 35.6 % (37-47) L Hgb 11.8 g/dL (12.0-15.0) L Assessment & Plan (1) 39 weeks gestation of : (2) Encounter for elective induction of labor: (3) Positive GBS test: (4) Penicillin allergy: (5) Obesity affecting : (6) High risk multigravida in third trimester: PLAN: Plan CE /-2 Admit to labor and delivery Routine labs Start IV and give fluid bolus GBS positive - PCN allergy- Start Vancomycin IV Start Pitocin at 2 mu/min and increase per policy Epidural when indicated Dr. Gregory notified of admission and is collaborating physician
[2024-10-27] MEDS: Lactated Ringers 1,000 ML 999 ML IV (07:56)
[2024-10-27 08:12] LABS: Absolute Lymphocyte Count 1.63 X10^3/uL (0.83-4.51); Absolute Neutrophil Count 11.6 X10^3/uL (2.0-7.7); Basophil# 0.03 X10^3/uL; Basophil% 0.2 % (0-1); Eosinophil# 0.22 X10^3/uL; Eosinophils% 1.6 % (0-5); Hematocrit 35.6 % (37-47); Hemoglobin 11.4 g/dL (12.0-15.0); Lymphocyte # 1.63 X10^3/ul (0.83-4.51); Lymphocyte % 11.5 % (19-41); Mean Corpuscular Volume 84.4 fL (81-99); Mean Platelet Vol. 12.4 fl (6.2-12.0); Monocyte# 0.64 X10^3/uL; Monocyte% 4.5 % (0-10); NRBC Flagged by Analyzer 0 % (0-5); Neutrophil # 11.61 X10^3/uL (2.7-7.7); Neutrophil % 81.8 % (47-70); Platelet Count 152 K/mm3 (150-450); RBC Distribution Width CV 15.9 % (11.6-14.6); RBC Distribution Width SD 48.1 fl (35.1-43.9); Red Blood Count 4.22 M/mm3 (4.2-5.4); White Blood Count 14.2 K/mm3 (4.4-11.0)
[2024-10-27] MEDS: Vancomycin HCl 2,000 MG in 0.9% Normal Saline (500mL Bag) 500 ML 250 MG IV (08:34)
[2024-10-27 08:39] LABS: Syphilis Antibodies Nonreactive (Nonreactive)
[2024-10-27] MEDS: fentaNYL-bupivacaine (epidural) 100 ML BAG EPIDURAL (08:47)
--- NOTE | 2024-10-27 09:23 | OB.VAGDELI_ITS ---
Assessment & Plan (1) (spontaneous vaginal delivery): (2) Spontaneous rupture of amniotic membranes: (3) Precipitous delivery: (4) Laceration, obstetrical, first degree: (5) Positive GBS test: Maternal Data Information JUDD Calculator Estimated Delivery Date Method Current WG Current Estimate 10/28/24 Manual 39w 6d Vaginal Delivery Maternal Presentation Maternal Presentation: Elective Induction and Other Maternal Presentation: at 39.6 here for scheduled, elective induction of labor. Upon arrival to unit was lesly every 2 min and was found to be 4-5 cm/ 80/ -2. Vaginal Delivery Information Procedure Performed: Spontaneous Vaginal Delivery Surgeon/Practitioner: Nicole Keller Date of Procedure: 10/27/24 Pre-Procedure Diagnosis: Term gestation, elective induction of labor Post-Procedure Diagnosis: , Precipitous delivery, Live male infant Type of anesthesia: Epidural Estimated Blood Loss: 150 Time of Delivery: 09:04 Findings Description of procedure: Patient arrived to unit for elective induction and was found to be in early labor. Labor progressed without use of Pitocin and she quickly progressed to complete dilation. With good maternal effort, head delivered followed by anterior shoulder and remainder of body without any force, delay, or traction. Vigorous male was delivered atraumatically and placed on maternal abdomen. Pitocin IV started for active management of the third stage of labor. 3 vessel cord clamped and cut after delay and infant placed immediately skin to skin with patient. Placenta delivered spontaneously and intact. A first degree laceration was repaired in usual fashion using 3-0 Vicryl Rapid. Hemostasis obtained. Vaginal sweep performed. Fundus is firm 2 below U and bleeding is hemostatic. Sponge and sharps counts correct. Patient and bonding well at this time. Dr. Gregory notified of delivery. Routine post orders placed. Presentation: Vertex Amniotic Membrane Rupture Type: Spontaneous Amniotic Fluid Description: Clear Placental Delivery Description: Spontaneous Placenta Disposition: [facility] Specimen collected: No Cord Vessel Description: 3 Vessels Cord Entanglement: None Nuchal Cord Compression: Without compression A Gender: Male (1 minute): 8 (5 minute): 9 Delayed Cord Clamping: Yes Pipe Bowls Paint Trimmer stem lead former: No Post Vaginal Deli Medications given after delivery: IV Pitocin Episiotomy Description: None Laceration: 1st degree Complication Complications: No
[2024-10-27] MEDS: Oxytocin 15 Units/NS 250ml 15 UNITS/250 ML IV.SOLN 83 UNITS IV (09:37)
[2024-10-27] MEDS: Acetaminophen 500 MG Tablet 1000 MG PO ×2 (13:01→22:58)
[2024-10-27] MEDS: Naproxen 500 MG Tablet PO (15:53)
--- NOTE | 2024-10-27 17:58 | NURSING ---
chg wipes deferred d/t imminent delivery
--- NOTE | 2024-10-27 18:01 | NURSING ---
deferred d/t imminent delivery
[2024-10-28] VITALS (9 sets, daily range): BP systolic 125–131; BP diastolic 65–81; PULSE 71–89; RESP 16–17; TEMP 36.6–36.9; O2SAT 92–100
[2024-10-28] MEDS: Naproxen 500 MG Tablet PO ×2 (05:37→16:48)
--- NOTE | 2024-10-28 06:42 | PN.OBGYN_ITS ---
Subjective Subjective Patient seen at bedside. Denies any pain. Ambulating and voiding without difficulty. Lochia decreasing. Patient will need to stay 36 hours after delivery due to GBS + status and not receiving PCN. Objective Data Objective Data Vital Signs: Vital Signs Temp Pulse Resp BP Pulse Ox O2 Del Method 98.4 F 72 16 125/78 H 99 Room Air 10/28/24 05:45 10/28/24 05:45 10/28/24 05:45 10/28/24 05:45 10/28/24 05:45 10/28/24 05:45 Oxygen Delivery Method Room Air Weight: 245 lb Body Mass Index (BMI) 42.0 Intake & Output: Intake and Output for Last 24 Hours 10/26/24 10/27/24 10/28/24 23:59 23:59 23:59 Intake Total 1387.5 / 1387.5 Output Total 650 / 650 Balance 737.5 / 737.5 Lab / Micro Data Attestation: I reviewed the patient's lab results. 10/27/24 07:25 Labs: Laboratory Results - last 24 hr 10/27/24 07:25: WBC 14.2 H, RBC 4.22, Hgb 11.4 L, Hct 35.6 L, MCV 84.4, MCH 27.0, MCHC 32.0, RDW Std Deviation 48.1 H, RDW Coeff of [place] 15.9 H, Plt Count 152, MPV 12.4 H, Immature Gran % (Auto) 0.400, Neut % (Auto) 81.8 H, Lymph % (Auto) 11.5 L, [place] % (Auto) 4.5, Eos % (Auto) 1.6, Baso % (Auto) 0.2, Absolute Neuts (auto) 11.6 H, Absolute Lymphs (auto) 1.63, Nucleated RBC % 0, Syphilis Total Ab Nonreactive, Blood Type O POSITIVE, Antibody Screen NEGATIVE ROS Eyes Eyes: Denies blurry vision, change in vision or spots in vision ENT HEENT: Denies dizziness or headache(s) Cardiovascular Cardiovascular: Denies abdominal pain, chest pain or dyspnea Respiratory/Chest Respiratory/Chest: Denies cough, dyspnea, shortness of breath at rest or shortness of breath with exertion Gastrointestinal Gastrointestinal: Denies abdominal pain, diarrhea or vomiting Genitourinary Genitourinary: Denies change in urinary stream, difficulty urinating or dysuria Musculoskeletal Musculoskeletal: Reports none Integumentary Integumentary: Denies rash Neurologic Neurologic: Denies dizziness, headache(s), memory loss or weakness Physical Exam Const alert and no apparent distress General Appearance: cooperative and comfortable Exam Limitations: no limitations HEENT normocephalic Eyes General Eye: normal appearance of both eyes Neck full ROM General: normal visual inspection Chest Chest: symmetrical chest wall rise Resp normal respiratory effort and normal air movement Effort and Inspection: symmetric chest movement Auscultation: clear to auscultation bilaterally Cardio regular rate and regular rhythm GI normal to inspection, nondistended, normoactive bowel sounds Back/Spine normal ROM Extremity full ROM and no calf tenderness General Extremity: normal exam except as noted Skin no rashes or lesions noted Neuro oriented x3 Speech: speech normal Psych mental status grossly normal Thought Process: normal thought process Assessment & Plan (1) Laceration, obstetrical, first degree: (2) Precipitous delivery: (3) Spontaneous rupture of amniotic membranes: (4) (spontaneous vaginal delivery): (5) Positive GBS test: (6) Obesity affecting : PLAN: Plan PPD 1 Routine care support Anticipate D/C home tomorrow
--- NOTE | 2024-10-28 18:10 | PCM.DC.SUM ---
Providers Date of Admission: 10/27/24 Primary Care Physician: No Primary Care Phys Reason For Visit: VAG DELIVERY Diagnosis Discharge Diagnosis (1) Laceration, obstetrical, first degree: Status: Acute Code(s): O70.0 - First degree perineal laceration during delivery (2) Precipitous delivery: Status: Acute Code(s): O62.3 - Precipitate labor (3) Spontaneous rupture of amniotic membranes: Status: Acute (4) (spontaneous vaginal delivery): Status: Acute Code(s): O80 - Encounter for full-term uncomplicated delivery (5) Positive GBS test: Status: Acute Code(s): B95.1 - Streptococcus, group B, as the cause of diseases classified elsewhere (6) Obesity affecting : Status: Acute Code(s): O99.210 - Obesity complicating , unspecified trimester Medications at Discharge Home Medications PNV 153-FA 400 mcg-om3 35 mg-dha 25 mg-epa 5 mg-fish oil chew tablet ( Gummies) 1 tab PO DAILY 08/15/24 pantoprazole 20 mg tablet,delayed release (Protonix) 20 mg PO DAILY HEARTBURN 08/15/24 Hospital Course Operations None Procedures - (Vaginal delivery 10/27/24) Summary of Care Provided Minutes Spent on Discharge: 14 Hospital Course: Admitted 10/27 for labor. . Desires d/c home PPD#1. Weight / BMI Weight Weight: 111.13 kg Body Mass Index (BMI) 42.0 ABG / Lab / Microbiology Data 10/27/24 07:25 D/C Instructions Discharge Diet: No restrictions Discharge Activity: May Shower May resume sexual activity in: 6 weeks Call your doctor if your incision/area has: Continuous Slow Oozing, Sudden Increased Bleeding, Foul Smelling Discharge and Swelling at the incision site Call your doctor if you observe: Fever of 101 or Higher and Inability to urinate DC O2, CPAP, BIPAP Needs Home O2 Discharge instructions: No Please Follow Up With: Nicole Keller CNM When: Follow up with our office in 1-2 and 6 weeks or as needed. [phone] Meaningful Use Info Meaningful Use Meaningful Use Diagnoses (Choose all that apply): None applicable Ischemic Stroke Statin Dosing Therapy Reference: STATIN DOSE THERAPY REFERENCE: * Patients > 75 years receive moderate or high dose statin therapy. * Patients 75 years or YOUNGER should receive HIGH intensity statin dose unless contraindicated. You will be required to document reason for non-treatment if statin daily dose does not meet guidelines. HIGH DOSE STATIN THERAPY DAILY Atorvastatin > than or = to 40 mg Rosuvastatin > than or = to 20 mg Amlodipine + Atorvastatin > than or = to 2.5/40 mg Ezetimibe + Simvastatin 10/80 mg Simvastatin 80mg Discharge Plan Admission Admit Date/Time: 10/27/24 07:29 Attending Provider: Nicole Keller Primary Care Provider: Care Physician,Irais Primary Discharge Orders/Prescriptions Prescriptions: No Action pantoprazole [Protonix] 20 mg tablet,delayed release (DR/EC) 20 mg PO DAILY Gummies 400 mcg-35 mg- 25 mg-5 mg tablet,chewable 1 tab PO DAILY Referrals / Follow Up: Care Physician,No Primary [Primary Care Provider] - Disposition Disposition (needs filled in before D/C Order can be placed): Home, Self Care
== END 2024-10-28 21:13 | disposition home or self-care (01) | DRG 806 ==
PROVIDERS: Admitting Provider Advanced Practice Midwife; Referring Provider Advanced Practice Midwife; Visit Provider Advanced Practice Midwife
DX: O42.92 Full-term premature rupture of membranes, unspecified as to length of time between rupture and onset of labor (principal); Z37.0 Single live birth; O98.82 Other maternal infectious and parasitic diseases complicating childbirth; O99.214 Obesity complicating childbirth; B95.1 Streptococcus, group B, as the cause of diseases classified elsewhere; O62.3 Precipitate labor; O70.0 First degree perineal laceration during delivery; Z3A.39 39 weeks gestation of pregnancy; Z88.0 Allergy status to penicillin
CPT/HCPCS: 59025; 59050; 85025; 86780; 86850; 86900; 86901; 99221; G0378